=== PATIENT | female | born 1990 | race Caucasian/White ===

== ENCOUNTER → 2019-08-04 | Outpatient (CLI) | payer OTHER ==
--- NOTE | 2019-08-04 13:14 | REPVR ---
PROCEDURE INFORMATION: Exam: MR Head Without Contrast Exam date and time: 08/04/2019 7:32 AM Age: 29 years old Clinical indication: Pain; Headache; Migraine; Aura effect not specified; TECHNIQUE: Imaging protocol: MR of the head without contrast. COMPARISON: No relevant prior studies available. FINDINGS: Brain: There is no acute intracranial hemorrhage, cerebral edema, or midline shift. No restricted diffusion is present to suggest acute infarction. Ventricles: No hydrocephalus. Bones/joints: Unremarkable. Sinuses: Normal as visualized. No acute sinusitis. Mastoid air cells: Normal as visualized. No mastoid effusion. Orbits: Unremarkable. Soft tissues: Unremarkable. IMPRESSION: No acute findings. Electronically signed by: Kike Hoffman On 08/04/2019 13:14:14 PM
== END ==
LOC: M RAD 06:40
PROVIDERS: ATTEND Physician Assistant Medical
DX: G43.909 Migraine, unspecified, not intractable, without status migrainosus (principal)

== ENCOUNTER → 2020-04-23 | Outpatient (REF) | payer OTHER ==
[2020-04-23 16:59] LABS: FREE T4 1.02 NG/DL (0.76-1.46); THYROID STIMULATING HORMONE 2.35 uIU/ML (0.358-3.740)
== END ==
LOC: M SFHCADAM 13:30
PROVIDERS: ATTEND Physician Assistant Medical
DX: N91.2 Amenorrhea, unspecified (principal); E66.01 Morbid (severe) obesity due to excess calories

== ENCOUNTER → 2020-12-16 | Outpatient (REF) | payer OTHER ==
[2020-12-16 12:54] LABS: HEMATOCRIT 37.2 % (36.0-47.0); HEMOGLOBIN 12.2 g/dl (12.0-15.5); MEAN CORPUSCULAR HEMOGLOBIN 28.4 pg (27.0-33.0); MEAN CORPUSCULAR HGB CONC 32.8 g/dl (32.0-36.5); MEAN CORPUSCULAR VOLUME 86.7 fl (80.0-96.0); PLATELET COUNT, AUTOMATED 272 10^3/uL (150-450); RED BLOOD COUNT 4.29 10^6/uL (4.00-5.40)
[2020-12-16 13:24] LABS: ALT/SGPT 10 U/L (12-78); BILIRUBIN,TOTAL 0.2 MG/DL (0.2-1.0); GLOMERULAR FILTRATION RATE > 60.0 (>60); GLUCOSE CHALLENGE TEST 1 HOUR 133 MG/DL (LESS THAN 140); LDH LACTATE DEHYDROGENASE 179 U/L (84-246); URIC ACID 4.1 MG/DL (2.6-6.0)
[2020-12-16 13:27] LABS: CREATININE,RANDOM URINE 91.5 MG/DL; TOTAL PROTEIN,RANDOM URINE 10.5 MG/DL (0.0-12.0)
== END ==
LOC: M PLALAB 10:11 → M SFHCADAM 10:37
PROVIDERS: ATTEND Advanced Practice Midwife
DX: Z34.92 Encounter for supervision of normal pregnancy, unspecified, second trimester (principal); Z3A.00 Weeks of gestation of pregnancy not specified

== ENCOUNTER → 2020-12-24 | Outpatient (CLI) | payer OTHER ==
--- NOTE | 2020-12-24 16:35 | REP ---
INDICATION: ANATOMY. COMPARISON: None. TECHNIQUE: Real-time sonographic evaluation of the gravid uterus performed. FINDINGS: Estimated gestational age is28 weeks 2 days, EDC 03/16/2021. Today's measurements indicate appropriate growth. Presentation: Transverse Placenta anterior, grade 2, without evidence of placenta previa. heart rate is recorded at 153 beats per minute. Amniotic fluid is subjectively normal. Closed cervical length is measured at 3.5 cm. Biometry chart: BPD: 72 mm, 28 weeks 6 days, 61st percentile. HC: 263 mm, 28 weeks 5 days, 58th percentile AC: 237 mm, 28 weeks 0 days, 45th percentile Femur length: 50 mm, 26 weeks 6 days, 19th percentile HC to AC ratio: 1.11, normal range 0.99-1.18. Estimated weight: 1119g, 20th percentile. anatomy: Cranium: Grossly normal Lateral Ventricles/Choroid Plexus: Grossly normal Posterior Fossa/Cerebellum: Grossly normal Nose/lips/profile: Nose and lips not well visualized. Four chamber heart: Not well visualized. Right ventricular outflow tract: Not well visualized. Left ventricular outflow tract: Not well visualized. Left-sided stomach: Grossly normal Kidneys: Not well visualized. Bladder: Grossly normal Cord Insertion: Grossly normal 3 vessel cord: Grossly normal Spine: Not well visualized. IMPRESSION: Viable single intrauterine gestation as above. <Electronically signed by Toro Aj > 12/24/20 [id number]
== END ==
LOC: M WHC 09:54
PROVIDERS: ATTEND Advanced Practice Midwife
DX: Z34.92 Encounter for supervision of normal pregnancy, unspecified, second trimester (principal)

== ENCOUNTER → 2020-12-31 | Outpatient (REF) | payer OTHER ==
[~2020-12-31] MED LIST: ACET500P3 PO; GUAI100L6 PO; PRENTAB9 PO
== END ==
LOC: M SFHCPLAZ 16:47
PROVIDERS: ATTEND Physician Assistant
DX: J02.9 Acute pharyngitis, unspecified (principal)

== ENCOUNTER 2021-01-04 13:12 | Emergency (ER) | payer OTHER ==
[~2021-01-04] VITALS: Ht 154.9 cm; Wt 131.8 kg
--- OUTSIDE RECORDS SUMMARY | 2021-01-04 13:19 | CCD ---
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
--- OUTSIDE RECORDS SUMMARY | 2021-01-04 13:19 | CCD ---
Author Author [facility] Organization [facility] Address Unknown Phone Unavailable Care Team Providers Care Line Person Name Role Phone Abeba Carrizales PROBLEMS Type Condition ICD9-CM Code [id number] Code Onset Dates Condition S tatus W/U Status Risk SNOMED Code Notes Problem Amenorrhea N91.2 Active confirmed 87360550 Problem Supervision of other normal Z34.80 Ac tive confirm 879607656 Problem Morbid obesity E66.01 Active confirmed 32496 6002 Problem GERD without esophagitis K21.9 Active confirmed 711343028 Problem Migraine without aura and without status migrain osus, not intractable G43.009 Active confirmed [id number] ALLERGIES Allergen (clinical drug ingredient) Drug/Non Drug Allergy do cumented on EMR Reaction Allergy Type Onset Date Status Sulfasalazine Sulfa Antibiotics Rash Drug Allergy 07/18/2019 Ac tive ENCOUNTERS from 1992 to 2020-12-07 Encounter Location Date Provider Diagnosis [facility] [facility] [phone] [place] [address] Nov, Abeba Carrizales Encounter for superv ision of normal in second trimester Z34.92 IMMUNIZATIONS No Information SOCIAL HISTORY Tobacco Use: Social History Observation Description Date Details (start date - stop date) Former Smoker Sex Assigned At : Social History Observation Description Sex Assigned At Unknown Education: Question Answer Notes Level of Education: Not finished High School Completed 11th grade, with her oldest dgt who was born with CA. Audit Question Answer Notes Total Score: 0 Interpretation: Alcohol Education Language: Question Answer Notes Languages spoken: [place] Confucianism: Question Answer Notes Confucianism No latter day beliefs that would impact health care. Drug and Alcohol Question Answer Notes Total Score: 0 Interpretation: No problems reported Tobacco Use: Question Answer Notes Are you a: former smoker REASON FOR REFERRAL No Information VITAL SIGNS Weight 286.2 lbs Nov, Weight-kg 129.82 kg Nov, Height 61 in Nov, BMI 54.077 kg/m2 Nov, Blood pressure systolic 128 mm Hg Nov, Blood pressure diastolic 90 mm Hg Nov, MEDICATIONS Medication SIG (Take, Route, Frequency, Duration) Notes Start Da te End Date Status Sucralfate 1 GM 1 tablet on an empty stomach Orally three times daily Not-Taking Zofran ODT Active 27-1 MG 1 tablet Orally Once a day Active Omeprazole 40 MG 1 capsule 30 minutes before morning meal Orally twice daily for 30 day(s) June, Not-Taking Tylenol 325 MG 1 tablet as needed Orally every 4 hrs Active Mupirocin 2 % 1 application Externally thr ee times daily to left upper arm for 7 day(s) Jul, Not-Taking PROCEDURES No Information RESULTS No Results REASON FOR VISIT 1st pn transfer from [facility] MEDICAL (GENERAL) HISTORY Type Description Date Medical History Gastritis/GERD Medical History morbid obesity Surgical History laparoscopic repair of umbilical hernia 06/07 Surgical History tubes in ears, tonsils as a child Hospitalization History child - vaginal deliveries Hospitalization History hernia repair 06/07 Goals Section No Information Health Concerns No Information MEDICAL EQUIPMENT No Information MENTAL STATUS No Information FUNCTIONAL STATUS No Information ASSESSMENTS Encounter Date Diagnosis Assessment Notes Treatment Notes Treatm ent Clinical Notes Nov, Encounter for supervision of normal in second trimester (ICD-10 - Z34.92) PLAN OF TREATMENT Treatment Notes Test Name Order Date Pre Eclampsia Profile 2020-12-07 CREATININE,RANDOM URINE 2020-12-07 CBC - Complete Blood Count 2020-12-07 TOTAL PROTEIN,RANDOM URINE 2020-12-07 Type and Screen (D Rh Antibody Screen) 2020-12-07 Glucose Challenge Test 1 Hour 2020-12-07 [facility] OBS COMPLETE US 2020-12-07 Next Appt Details 2-3 weeks Reason: Provider Name:Antonella Anderson, 2020-12-0 5 08:00:00 AM, [address] [facility], , [place], [address], Insurance Providers Payer Name Payer Address Payer Phone Insured Name Patient Relati onship to Insured Coverage Start Date Coverage End Date [facility] [employer] [address] [facility] [id number] [phone] EBONY CHANG self
--- OUTSIDE RECORDS SUMMARY | 2021-01-04 13:19 | CCD ---
Author Author [facility] Organization [facility] Address Unknown Phone Unavailable Care Team Providers Care Tipple Supervisor Name Role Phone EDWARD FINE Unavailable Unavailable Doctor Provided, Family PHYS No Family Unavailable U navailable SELENEHEMAIRINA MS Unavailable Unavailable MAESTRI, IRINA YOUNG MS Unavailable Unavailable Irina Burgess Unavailable Irina Burgess Unavailable Janis Norton MD Unavailable Unavailable Royal NORTON Unavailable Unavailable Oleg Pavon MD Unavailable Unavailable Re-disclosure Warning The records that you are about to access may contain information from federally-assisted alcohol or drug abuse programs. If such information is present, then the following federally mandated warning applies: This information has been disclosed to you from records protected by federal confidentiality rules (42 CFR part 2). The federal rules prohibit you from making any further disclosure of this information unless further disclosure is expressly permitted by the written consent of the person to whom it pertains or as otherwise permitted by 42 CFR part 2. A general authorization for the release of medical or other information is NOT sufficient for this purpose. The Federal rules restrict any use of the information to criminally investigate or prosecute any alcohol or drug abuse patient.The records that you are about to access may contain highly sensitive health information, the redisclosure of which is protected by Article 27-F of the [facility] Public Health law. If you continue you may have access to information: Regarding HIV / AIDS; Provided by facilities licensed or operated by the [facility] Office of Mental Health; or Provided by the [facility] Office for People With Developmental Disabilities. If such information is present, then the following [facility] mandated warning applies: This information has been disclosed to you from confidential records which are protected by state law. State law prohibits you from making any further disclosure of this information without the specific written consent of the person to whom it pertains, or as otherwise permitted by law. Any unauthorized further disclosure in violation of state law may result in a fine or senior care sentence or both. A general authorization for the release of medical or other information is NOT sufficient authorization for further disc losure. Allergies and Adverse Reactions Type Description Substance Reaction Status Data Source(s ) Drug allergy Sulfa (Sulfonamide Antibiotics) Sulfa (Sulfonami de Antibiotics) Rash [facility] Family History Family Member Name Family Member Gender Family Member Status Date o f Status Description Data Source(s) Unknown Condition [facility] Unknown Condition [facility] Unknown Condition [facility] Unknown Condition [facility] Unknown Condition [facility] Unknown Condition [facility] Unknown Condition [facility] Unknown Condition [facility] Unknown Male Problem MEDENT ([facility]) Unknown Unknown Problem MEDENT ([facility]) Encounters Encounter Providers Location Date Indications Data Source(s ) Unknown [address] [address] 12/31/2020 12:00:00 AM EST eCW1 ([facility]) Unknown [address] [address] 12/29/2020 12:00:00 AM EST eCW1 ([facility]) ( MARIAM) [facility] OB Visit [address] [place] [address] 12/07/2020 12:00:00 AM EDT eCW1 ([facility]) Outpatient 10/27/2020 01:00:00 PM EDT anatomy [facility] anatomy Outpatient Attender: ERNA MALASeven Bria jose: Erna Reginarer: JANIS NORTON [id number] 10/21/2020 12:00:00 AM EDT - 10/21/2020 02:53:55 PM EDT [facility] Outpatient Attender: EDWARD FINEReferrer: JANIS NORTON 10/21/2020 12:00:00 AM T [facility] Outpatient Attender: Janis Norton MD 09/29/2020 0 3:07:00 PM EDT Z82.79,O09.293,Z80.8 [facility] Z82.79,O09.293,Z80.8 Outpatient Attender: Janis Norton MDReferrer: No Family Doctor Provided 09/29/2020 02:25:00 PM EDT - 09/29/2020 02:55:00 PM EDT [facility] Outpatient Attender: Roberth Pavon MD 09/14/2020 02:20:00 PM EDT F/U SUBCORE [facility] F/U SUBCORE Outpatient Attender: Janis Norton MD 09/01/2020 05:47:0 0 PM EDT [facility] Outpatient Attender: Janis Norton MDReferrer: No Family Doctor Provided 09/01/2020 02:47:00 PM EDT - 09/01/2020 04:09:00 PM EDT [facility] Outpatient Attender: Janis Norton MD 08/04/2020 0 2:06:00 PM EDT DATING, ANATOMY? [facility] DATING, ANATOMY? Outpatient Attender: Janis Norton MD 08/03/2020 01:57:0 0 PM EDT [facility] Outpatient Attender: Janis Norton MDReferrer: No Family Doctor Provided 08/03/2020 01:51:00 PM EDT - 08/03/2020 01:58:00 PM EDT [facility] Outpatient [address] [facility] [address] 04/23/2020 12:00:00 AM EST eCW1 ([facility]) [place] [address] [facility] [address] 04/23/2020 12:00:00 AM EST eCW1 ([facility]) [place] [address] [facility] [address] 01/26/2020 12:00:00 AM EST eCW1 ([facility]) Immunizations Vaccine Date Status Description Data Source(s) Tdap 12/24/2020 08:52:00 AM EDT completed e CW1 ([facility]) Tdap 12/24/2020 08:52:00 AM EDT completed e CW1 ([facility]) New in 2011. IIV4 12/24/2020 08:51:00 AM EDT completed eCW1 ([facility]) New in 2011. IIV4 12/24/2020 08:51:00 AM EDT completed eCW1 ([facility]) Medications Medication Brand Name Start Date Product Form Dose Route Admi nistrative Instructions Pharmacy Instructions Status Indications Reaction Description Data Source(s) Ondansetron 4 MG Disintegrating Oral Tablet ONDANSETRON 09/29/2020 12:00:00 AM EDT tablet,disintegrating 30 DISSOLVE O NE TABLET UNDER THE TONGUE EVERY 4 HOURS NEEDED FOR NAUSEA/VOMITING FOR 1 WEEK, THEN NEEDED DISSOLVE ONE TABLET UNDER THE TONGUE EVERY 4 HOURS NEEDED FOR NAUSEA/VOMITING FOR 1 WEEK, THEN NEEDED SOLD: 09/30/2020 Lissa segura Ondansetron 4 MG Disintegrating Oral Tablet ONDANSETRON 09/29/2020 12:00:00 AM EDT tablet,disintegrating 30 DISSOLVE O NE TABLET UNDER THE TONGUE EVERY 4 HOURS NEEDED FOR NAUSEA/VOMITING FOR 1 WEEK, THEN NEEDED DISSOLVE ONE TABLET UNDER THE TONGUE EVERY 4 HOURS NEEDED FOR NAUSEA/VOMITING FOR 1 WEEK, THEN NEEDED SOLD: 10/17/2020 Lissa segura Metronidazole 0.0075 MG/MG Vaginal Gel M etronidazole (Metrogel Vaginal) 0.75 % gel Metronidazole (Metrogel Vaginal) 0.75 % gel 09/08/2020 05:10:51 PM EDT 1 APPFUL completed [facility] Promethazine Hydrochloride 12.5 MG Oral Tablet Promethazine 08/11/2020 01:07:38 PM EDT 12.5 MG active [facility] 12.5 mg 08/11/2020 12:00:00 AM EDT tablet 90 TAKE ONE TABLET BY MOUTH THREE TIMES A DAY TAKE ONE TABLET BY MOUTH THREE TIMES A DAY SOLD: 08/11/2020 [facility] Lkz42-Az-Iq8-Edu-Kyr-Sger Oil 08/03/2020 01:17:07 PM EDT active [facility] Alprazolam 0.25 MG Oral Tablet Alprazolam (Xanax) 0.25 MG tablet Alprazolam (Xanax) 0.25 MG tablet 09/28/2016 12:25:00 PM EDT 0.25 MG [facility] 24 HR Bupropion Hydrochloride 300 MG Ext ended Release Oral Tablet Bupropion Hcl (Wellbutrin Xl) 300 MG tablet extended release 24 hr Bupropion Hcl (Wellbutrin Xl) 300 MG tablet extended release 24 hr 09/28/2016 10:32:00 AM EDT 300 MG completed [facility] Ibuprofen 800 MG Oral Tablet Ibuprofen 09/24/2016 09:24:14 AM EDT 800 MG completed [facility] Ranitidine 150 MG Oral Tablet Ranitidine Hcl (Zantac) 150 MG tablet Ranitidine Hcl (Zantac) 150 MG tablet 09/07/2016 02:44:00 PM EDT 150 MG [facility] Pnv 9-Hbqd-Mx-Y61-Pfmerwv-H2 (Mteryti Fo lic 5 Combo Pack) 1 EACH tablets, sequential 03/10/2016 03:39:00 PM EST 1 EACH compl eted [facility] Insurance Providers Payer name Policy type / Coverage type Policy ID Covered alliance party ID Covered alliance party's relationship to burk Policy Burk Plan Information [facility] I [id number] Self [id number] [facility] I [id number] Self [id number] MEDICAID M [id number] Self [id number] [facility] P [id number] S [id number] [facility] Health Maintenance Organization (HMO) [id number] Self [id number] [facility] Health Maintenance Organization (O) [id number] Self [id number] [facility] Health Maintenance Organization (O) [id number] Self [id number] [facility] Health Maintenance Organization (O) [id number] Self [id number] [facility] Health Maintenance Organization (O) [id number] Self [id number] [facility] Health Maintenance Organization (O) [id number] Self [id number] [facility] I [id number] Self [id number] [facility] Health Maintenance Organization (O) [id number] Self [employer] COMM[employer] [place] [id number] SP [id number] [facility]CA[facility] P [id number] S [id number] [facility](MCAID) P UNAVAILABLE S UNAVAILABLE [facility](MCAID) P [id number] S [id number] SELF PAY UNAVAILABLE UNAVAILA BLE BLUE CROSS GARZA PLAN [id number] SP [id number] HMO BLUE [id number] SP [id number] MEDICAID [id number] SP [id number] [facility] [id number] SP [id number] [employer] COMMUNITY [employer]AN [facility] [place] [id number] SP [id number] Problems, Conditions, and Diagnoses Code Display Name Description Problem Type Effective Dates Data Source(s) Z34.80 care Supervision of other normal P lidia 12/07/2020 12:00:00 AM EDT eCW1 ([facility]) N91.2 [id number] Amenorrhea Problem 04/23/2020 12:00:00 AM ES T eCW1 ([facility]) Surgeries/Procedures Procedure Description Date Indications Data Source(s) Ultrasound scan - obstetric (procedure) 09/14/2020 02: 50:00 PM EDT [facility] Chlamydia/Neisseria (PCR) 09/01/2020 12:00:00 AM EDT [facility] Ultrasonography in first trimester (procedure) 021 03:12:00 PM EDT [facility] Urine culture (procedure) 08/03/2020 12:00:00 AM EDT [facility] Results ID Date Data Source [id number] 10/26/2020 09:05:31 AM EDT [facility] Name Value Range Interpretation Code Description Data Dolores rce(s) Supporting Document(s) Progress Note [facility] RBPMAm5xFiZPDhFn62/UGUacLZWpy1FzPKbpNUj7HCcuPIGnZ4LvZDS9cN9lIKO7OVcGRqOvInCmITH9 [facility] UeOypODkJqJKVhAvfHSvRpZYdkPiqqvWReSC5MpIV6PTFrY55mTDWpDIUwU0XmDHS0NAp+Ik3GFLTzyE LwDS8RPbcA2L1kn4xIQe3quP/QCbQuH0VzofeOlzKSO7lva4IzmGTY42RCLnqTDKbyfWMynhyo4sp+dD dj+xyRwjtnQhynwJX3r7nh934LzORQvc+uwHVzLF9x /7/4U8frWt8zk/yQAm7K4ZpIDq+wp6fOvTl9KxWVkT+B//xHdm910v96n8OoQy5zKx8eUE6X84yWihGE o/1T9knhieW9pJojPo0sy2oxonpydC//wdISAFy56HZam+bwP+sKnKnghuSyj7O/ywf8r4NePIGj+3Fw V4vTKLcQSzSR2GKhihKcsrfRHjJLIoD7Ox/MqpPOvA Zz82CdPyuXVfxzm1xyQ7JnEKDMOspYxwN8BAu6Zf8MLqdV7KgADLb0pX/Mz7NevWwmXG8Bmm6iu1k7W5 XoXRgOjCKcB3tXKzwy8PZQ5aCxpQrgcg41AF2LTEokm3SIE+O6bpmDjIbY8R3vvas6nO1fEdfIoe6pxU /Ov0CRHmxi1O/ZI0HsqTJ02tyTYO7I2Mb+10a5fdsT o0yQog1o9Rfj5NtiBj7htjydofuK89Kao3BA+RaXXfCzP2k1TKUc3sw85lp+Hu8Q2I0XB+iKeWvsoo99 d2De/sKszh6qIswuZ2J6Vc0AozqDRpcGQgYt8ABdCOY59QKa1cHg85rG25YYRcRpToGWT56/93wuPwhM PpzkwyguRgXdLOyKuofzfBQnxciQZz+L2JIPtzkn+J [file] ID Date Data Source [id number] 10/01/2020 05:53:00 PM EDT [facility] MATERNAL WEIGHT?: 287MOTHER'S ETHNIC GUERRERO GIN: CAUCASIANINSULIN DEPEND DIABETES: NOHX OF NEURAL TUBE DEFECTS: YESEDD DETERMINED BY: ULTRASOUNDPREV PREG. DOWN SYNDROME: YESNUMBER OF FETUSES: 1EST'D DATE OF DELIVERY: [id number] Name Value Range Interpretation Code Description Data Dolores rce(s) Supporting Document(s) Gestational age method [facility] Mother's race [facility] Gestational age Estimated 16.0 weeks [facility] Body weight 287 lbs [facility] Insulin dependent diabetes mellitus [Presence] [facility] History of Neural tube defect Narrative YES [facility] History of Trisomy 21 Narrative YES [facility] Donated egg [Presence] [facility] Age NOT GIVEN [facility] Clinical information NO [facility] Delivery date Estimated 03/16/2021 [facility] Number of fetuses by US 1 [facility] Neural tube defect risk [Likelihood] in Fetus NOT CALCULATED [facility] Second trimester quad maternal screen [I nterpretation] in Serum or Plasma Narrative SEE NOTE [facility] ital Screen positive for open NTD.SEE NOTEA f amily history of neural tube defects (NTD) mayincrease the risk of having a child with anencephalyor spina bifida. Genetic counseling is appropriate inthis situation.A previous child with down syndrome may increasethe risk of having another child with down syndrome.Genetic counseling is appropriate in this situation.This patient's SHYANN (estimated date of delivery)was used to calculate the gestational age.The AFP value obtained for this patient is high. Thepatient has an increased risk for having a child withopen neural tube defect or other congenital anomalies.Underestimation of gestational age is one of the mostfrequent causes of an elevated AFP. Geneticcounseling, ultrasound examination and possibleamniocentesis are recommended as soon as possible. Thesingle AFP marker is not recommended for Down syndromeand other chromosomal abnormalities screening. Muchgreater sensitivity is achieved with multiple markers,such as AFP, hCG, unconjugated estriol, and/or dimericinhibin A, as recommended by the [employer]. Service comment [facility] This is a screening test, not a diagnost ic test. Thisrisk assessment report is based in part on demographicdata provided by the ordering physician. Please notifythe laboratory promptly if any data are incorrect. Forassistance with recalculations, please call your local[facility] laboratory. For assistance withinterpretation of these results, please contact yourcal [employer] genetic counselor or [phone]).Interpretive CutoffsScreen Positive for Open NTD: > or = 2.50 adjusted MOM > or = 1.90 adjusted MOM for Insulin- dependent diabetics > or = 4.00 adjusted MOM for twins > or = 3.50 adjusted MOM for Twins insulin-dependent diabetics > or = 4.50 adjusted MOM for tripletsSEE NOTEReviewed by: Milo Roque MDTHIS TEST WAS PERFORMED AT:[facility] [address]XRAWCN MERATI,MD Lgwts-8-Fujmjzkybis [Multiple of the median] in Serum or Plasma Above high normal [facility] 3.56 - SCREEN POSITIVE (SEE BELOW) Abno rmal Flag: A Gcmrd-5-Hdtmkpvqavv [Mass/volume] in Serum or Plasma 82.2 ng/mL [facility] ID Date Data Source [id number] 09/29/2020 02:32:00 PM EDT [facility] Patient Name: EBONY MINER : 1990 Sex: F Pt Unit #: [id number] Location:[facility] Provider: Visit Date/Time: 09/29/20 Primary Insurance: [facility] Secondary Insurance: Self Pay Intake Vital Signs 09/29/20 14:40 Current Height 5 ft Current Weight 287 lb 4 oz Weight Measurement Method Standing Scale BMI 56.0 BP 122/80 Blood Pressure Location Lt brachial Position Sitting Respiration 18 Pulse 92 Pulse Strength Normal Pulse Source Pulse Oximeter Temp 97.4 F L Temp Source Tympanic Pulse Oximetry (%) 98 Oxygen Delivery Method room air 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 Qnatal was denied by insurance, CF done in first , is going to do AFP today, does not require auth. Denies any cramping, contractions, leaking of fluids, bleeding or discharge. Is not feeling movement yet. States that she is still really nauseousand has no appetite, but no vomiting. Has lost 6lbs in the last month. Otherwise no concerns today. Spike Machine Heater Required: No Accompanied by: Is patient in pain?: No Allergies Sulfa (Sulfonamide Antibiotics) Allergy (Mild, Verified 09/29/20 15:03) Rash Medications - Last Reconciled 09/29/20 by Janis Norton MD ondansetron 4 mg PO Q4H PRN OWW17-YK-jw8-sqq-ihw-oplk oil 400 mcg-35 mg -25 mg-5 mg tabs PO promethazine 12.5 mg PO TID Patient : Yes Fall Risk History of falls: No Ambulatory Aid:: None Gait/Transferring:: Normal Medications:: No High Risk Medications HIV Testing Offer - ages 13-64 HIV testing Offer: No SBIRT Annual Questionnaire Are you currently in recovery for alcohol or substance use?: No Coronavirus Screening Screening Are you currently positive or on isolation for COVID ?: No Do you have any NEW signs of one or more of the following?: no symptoms Do you have NEW signs of at least two of the following?: no symptoms PFSH Medical History Allergy to Sulfa daughter born with CA 1 still born at 37 wks down syndrome/1blighted ovum menarche 11 No Hx abn paps Surgical History H/O umbilical hernia repair History of - surgery (08/31/15) History of - surgery History of - surgery Status post tonsillectomy Family History Mother Diabetes Hypertension Daughter Cancer Social History Does the Patient have a Healthcare Proxy: No Does Patient have a DNR?: No Does Patient have a Living Will?: No Advance Directives on File or in chart?: No household members: spouse and children housing: house marital status: lives independently: Yes number of children: 3 highest education level completed: 11th grade service: No current occupational status: unemployed current occupation: [employer] pets and animals: Yes pets and animals: dog(s) Hx Recent Travel (where): No sexually active: Yes how many partners: 1 do you think of yourself as: straight/heterosexual current gender identity: female Smoking Status: Never smoker alcohol intake: current alcohol intake frequency: holidays/special occasions only substance use type: does not use seatbelt use: always helmet use: Yes helmet use: always drive intox or ride w/ intox frontload driver: No working smoke detector in home: Yes fire extinguisher in home: Yes carbon monox detector in home: Yes do you feel safe at home: Yes victim of physical abuse: No victim of emotional abuse: No victim of sexual abuse: No Female Reproductive History Menstrual Age of Menarche: 13 Duration of menses: 3-5 days control method: none Total pregnancies: 6 Full term: 4 Premature: 0 Ab induced: 0 Ab spontaneous: 1 Ectopics: 0 Multiple births: 0 HPI HPI (1) : History History 6 Number of Living Children 3 Hx # Term Pregnancies 4 Hx # Pregnancies 0 Hx Total # of Abortions (Spontaneous Elective) 1 Ectopic pregnancies 0 Past Pregnancies Del. Date EGA/weeks Route # Outcome Route Wgt Sex Labor lgth Anesthesia Del Loc 04/24/11 40 Spontaneous Vaginal 1 live - full term vaginal 8 lb 4 oz FEMALE 12 Epidural No [facility] 07/02/13 6 Spontaneous spontaneous 12/11/13 37 Spontaneous Vaginal 1 still vaginal 7 lb 14 oz MALE 12 None No [facility] 01/20/15 40 Spontaneous Vaginal 1 live - full term vaginal 8 lb 10 oz FEMALE 1 2 Spinal No [facility] 09/22/16 40 Spontaneous Vaginal 1 live - full term vaginal 8 lb 11 oz F EMALE 12 Epidural None No [facility] Delivery Date: 04/24/11 No notes to display Delivery Date: 07/02/13 No notes to display Delivery Date: 12/11/13 had Down Syndrome Tracee Dominguez Delivery Date: 01/20/15 No notes to display Delivery Date: 09/22/16 No notes to display Visit Personal Information Marital Status: Maternal 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 Father's age: 30 Father involved?: Yes ([place]) Paternal 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 No vomiting. Has lost 6 pounds since last visit. Has not been taking the Phenergan, because it makes her sleepy, only takesit when she is really nauseous, and then only when her is at home because of the children. Will like to try something else for the nausea. 1. Nausea: To stop Phenergan. To try Zofran 4 mg every 4 hours x1 week continuously, then q.4 hours as needed nausea after that week. 2. Quad screen today. Jains Norton Visit Date: 09/01/20 Patient is here for her NOB appt. She is unsure of LMP so will go by dating US. She is 12 weeks today with SHYANN of 03/16/21. She would like all genetic testing done besides CF, she states withher first she was tested and she was a CF carrier (her brother has CF), but her was negative. She also has had a stillborn with Down Syndrome and a daughter born with Cancer- [place], which is why she wants genetic testing to be done. Her last pap was 11/22/16 and negative with negative HPV. She has some nausea, but states the medication is working well. Has some cramping, but states it is very mild. Denies any bleeding or spotting. Was given NOB handouts and signed HIV consent form. Denies any concerns today. OB sonogram: 08/04/2020: S IUP, CRL 15.9 mm =8 weeks 0 days gestation. FH174 bpm. Sono SHYANN: 03/16/2021. Small subchorionic fluid collection, hemorrhage,1.4 x 1.1 x 0.9 cm. Labs: 08/03/2020: UA/C Snormal. Lead <1; syphilisNR; HBsAgNR; HIVNR; rubellaimmune; varicellaimmune; group and RhO+, antibody screennegative. H/H13.3/39.2, THA657s; TSH2.10 IU/ml. UDAnegative. 1. at 12 weeks gestation. Past history of demise at term. 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 2. Repeat OB sonogram to assess subchorionic bleed. 3. Labs: Pap, GC/chlamydia, PCR swab vagina. 4. Desires genetic screening, because of previous history of demise and Down's, and also patient's history of CF carrier. Janis Norton Assessment Plan Assessment Plan (1) : Code(s): Z34.90 - Encounter for supervision of normal , unspecified, unspecified trimester Qualifiers: Weeks of gestation: 16 weeks Qualified Code(s): Z3A.16 - 16 weeks gestation of Plan: 1. Quad screen today. 2. Persistent nausea with : To DC Phenergan. To try Zofran 4 mg every 4 hours x1 week, then every 4 hours as needed nausea after that. 3. For anatomy sonogram at 20 weeks. Orders: Orders US OB Ultrasound >14 wks 4 Weeks Z36.89 - Encounter for other specified screening Medications: New ondansetron 1 tab every 4 hours x 1 week, then PRN 4 mg PO Q4H PRN 42 tabs 4RF nausea and vomiting Orders Follow Up: 4 Weeks <Electronically signed by Janis Norton MD> 09/29/20 1515 Name Value Range Interpretation Code Description Data Dolores rce(s) Supporting Document(s) ID Date Data Source [id number] 09/14/2020 04:31:00 PM EDT [facility] [address] [place] [address] [phone] NAME SEX PT STATUS ACCOUNT NUMBER EBONY MINER REG REF [id number] ORDERING PHYSICIAN LOCATION MEDICAL RECORD NO. Roberth Pavon MD [id number] ATTENDING PHYSICIAN DATE OF DATE OF EXAM/TIME Doctor Provided,No Family 1990 09/14/20 / 1450 TYPE / EXAM US OB Limited (heartbeat, etc) REASON FOR EXAM follow up subchorionic bleed CLINICAL HISTORY: follow up subchorionic bleed COMPARISON: 08/04/2020 TECHNIQUE: Multiple transabdominal and transvaginal escalona-scale, color Doppler, and M-Mode Doppler images were obtained of the pelvis. FINDINGS: Gestation: Single live intrauterine gestation. is demonstrated in transverse presentation. No subchorionic hemorrhage visualized in today's study. Anterior placenta. heart rate: 163bpm Cervical Length: 4.67cm Amniotic Fluid Volume: Subjectively within normal limits. IMPRESSION: 1. Single live intrauterine with heart rate of 163 bpm. 2. I nterval resolution of the previously visualized subchorionic hemorrhage. Reported By Jonathan Toledo DO on 09/14/201630 Signed By Jonathan Toledo DO on 09/14/201632 Date Time CC: Jonathan Toledo DO; No Family PHYS Provided Techn: TABSA Trans Dt/Tm: Trans by: DT Prt Dt/Tm: : Total DLP = 0.00 mGy-cm : Total Radiation Dose = 0.0000 mSv Lifetime Dose: 0 mSv Name Value Range Interpretation Code Description Data Dolores rce(s) Supporting Document(s) ID Date Data Source [id number] 09/09/2020 07:58:00 AM T [facility] LAST MENSTRUAL PERIOD unsureCollection T echnique: BRUSH-SPATULAPATIENT INFORMATION: PREVIOUS CYTOLOGY: NEGATIVEDATES AND RESULTS: 2017 negativePREVIOUS TREATMENT: NONEBody Site: CERVIX Name Value Range Interpretation Code Description Data Dolores rce(s) Supporting Document(s) Microscopic observation [Identifier] in Vaginal fluid by Cyt o stain.thin prep [facility] ID Date Data Source [id number] 09/02/2020 05:22:00 AM EDT [facility] CT/NG IS A QUALITATIVE IN VITRO REAL-JANAY E PCR TEST FORDETECTION OF CHLAMYDIA TRACHOMATIS (CT) AND NEISSERIAGONORRHOEAE (NG)NORMAL VALUE FOR CT/NG IS " NO ORGANISMS DETECTED "0x95 False negative results may occur if the organism(s) ispresent at levels below the analytical limit of detection.0x95 Because the detection of CT and NG is dependent on the DNApresent in the sample, reliable results are dependent onproper sample collection, handling and storage.0x95 With endocervical specimens, assay interference may beobserved in the presence of: blood (>1% v/v) or mucin (>0.8%w/v).0x95 With urine specimens, assay interference may be observedin the presence of: blood (>0.3% v/v), mucin (>0.2% w/v),bilirubin (>0.2 mg/mL), or Vagisil feminine powder (>0.2%w/v).0x95 Collection and testing of urine specimens with the XpertCT/NG test is not intended to replace cervical exams andendocervical sampling for diagnosis of urogenital infection.Other genitourinary tract infections can be caused by otherinfectious agents.0x95 The effects of other potential variables such as vaginaldischarge, use of tampons, douching, and specimen collectionvariables have not been determined.0x95 A negative test result does not exclude the possibility ofinfection because test results may be affected by improperspecimen collection, technical error, specimen mix-up,concurrent antibiotic therapy, or the number of organisms inthe specimen which may be below the sensitivity of the test.0x[address]/NG test should not be used for the evaluationof suspected sexual abuse or for other medico-legalindications. Additional testing is recommended in anycircumstance when false positive or false negative resultscould lead to adverse medical, social, or psychologicalconsequences.0x[address]/NG test provides qualitative results. Nocorrelation can be drawn between the magnitude of the Ctvalue and the number of cells in an infected sample.0x95 Positive results may be observed after successfulantibiotic treatment due to target nucleic acids fromresidual non-viable chlamydia.0x[address]/NG performance has not been evaluated inpatients less than 14 years of age.0x[address]/NG performance has not been evaluated inpatients with a history of hysterectomy.0x[address]/NG test has not been evaluated with patientswho are currently being treated with antimicrobial agentsactive against CT or NG.0x95 As with many diagnostic tests, results from the XpertCT/NG test should be interpreted in conjunction with otherlaboratory and clinical data available to the clinician.0x95 Mutations or other changes within the regions of thebacterial genomes covered by the primers and/or probes inthe Xpert assay may result in failure to detect the targetorganisms.C trach DNA Vag Ql SIXTO+probeN gonorrhoea rRNA Vag Ql SIXTO+probe Name Value Range Interpretation Code Description Data Dolores rce(s) Supporting Document(s) ID Date Data Source [id number] 09/03/2020 01:33:00 PM EDT [facility] CT/NG IS A QUALITATIVE IN VITRO REAL-JANAY E PCR TEST FORDETECTION OF CHLAMYDIA TRACHOMATIS (CT) AND NEISSERIAGONORRHOEAE (NG)NORMAL VALUE FOR CT/NG IS " NO ORGANISMS DETECTED "0x95 False negative results may occur if the organism(s) ispresent at levels below the analytical limit of detection.0x95 Because the detection of CT and NG is dependent on the DNApresent in the sample, reliable results are dependent onproper sample collection, handling and storage.0x95 With endocervical specimens, assay interference may beobserved in the presence of: blood (>1% v/v) or mucin (>0.8%w/v).0x95 With urine specimens, assay interference may be observedin the presence of: blood (>0.3% v/v), mucin (>0.2% w/v),bilirubin (>0.2 mg/mL), or Vagisil feminine powder (>0.2%w/v).0x95 Collection and testing of urine specimens with the XpertCT/NG test is not intended to replace cervical exams andendocervical sampling for diagnosis of urogenital infection.Other genitourinary tract infections can be caused by otherinfectious agents.0x95 The effects of other potential variables such as vaginaldischarge, use of tampons, douching, and specimen collectionvariables have not been determined.0x95 A negative test result does not exclude the possibility ofinfection because test results may be affected by improperspecimen collection, technical error, specimen mix-up,concurrent antibiotic therapy, or the number of organisms inthe specimen which may be below the sensitivity of the test.0x[address]/NG test should not be used for the evaluationof suspected sexual abuse or for other medico-legalindications. Additional testing is recommended in anycircumstance when false positive or false negative resultscould lead to adverse medical, social, or psychologicalconsequences.0x[address]/NG test provides qualitative results. Nocorrelation can be drawn between the magnitude of the Ctvalue and the number of cells in an infected sample.0x95 Positive results may be observed after successfulantibiotic treatment due to target nucleic acids fromresidual non-viable chlamydia.0x[address]/NG performance has not been evaluated inpatients less than 14 years of age.0x[address]/NG performance has not been evaluated inpatients with a history of hysterectomy.0x[address]/NG test has not been evaluated with patientswho are currently being treated with antimicrobial agentsactive against CT or NG.0x95 As with many diagnostic tests, results from the XpertCT/NG test should be interpreted in conjunction with otherlaboratory and clinical data available to the clinician.0x95 Mutations or other changes within the regions of thebacterial genomes covered by the primers and/or probes inthe Xpert assay may result in failure to detect the targetorganisms.C trach DNA Vag Ql SIXTO+probeN gonorrhoea rRNA Vag Ql SIXTO+probe Name Value Range Interpretation Code Description Data Dolores rce(s) Supporting Document(s) Trichomonas DNA Probe NOT DETECTED NOT DETECTED [facility] Gardnerella DNA Probe DETECTED NOT DETECTED Above high normal [facility] Increased levels of G. vaginalis may not be significantin the absence of signs and symptoms of bacterialvaginosis. Elsa species DNA Probe NOT DETECTED NOT DETECTED [facility] THIS TEST WAS PERFORMED AT:[employer] [address] [id number] MERATI,MD ID Date Data Source [id number] 09/01/2020 03:19:00 PM EDT [facility] Patient Name: EBONY MINER : 1990 Sex: F Pt Unit #: [id number] Location:[facility] Provider: Visit Date/Time: 09/01/20 Primary Insurance: [facility] Secondary Insurance: Self Pay Intake Vital Signs 09/01/20 15:25 Current Height 5 ft Current Weight 293 lb 6 oz Weight Measurement Method Standing Scale BMI 57.2 BP 122/78 Blood Pressure Location Lt brachial Position Standing Respiration 18 Pulse 97 Pulse Strength Normal Pulse Source Pulse Oximeter Temp 98.3 F Temp Source Tympanic Pulse Oximetry (%) 99 Oxygen Delivery Method simple mask 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 She is unsure of LMP so will go by dating US. She is 12 weeks today w [facility] SHYANN of 03/16/21. She would like all genetic testing done besides CF, she states with her first she was tested and she was a CF carrier (her brother has CF), but her was negative. She also has had a stillborn with Down Syndrome and a daughter born with Cancer-Teratoma, which is why she wants genetic testing to be done. She signed consent for AFP and declined CF since she has already had it done. Her last pap was 11/22/16 and negative with negative HPV. She has some nausea, but states the medication is working well. Has some cramping, but states it is very mild. Denies any bleeding or spotting. Was given NOB handouts and signed HIV consent form. Denies any concerns today. Spike Machine Heater Required: No Accompanied by: Is patient in pain?: No Allergies Sulfa (Sulfonamide Antibiotics) Allergy (Mild, Verified 09/02/20 09:39) Rash Medications - Last Reconciled 09/02/20 by Janis Norton MD [id number] oil 400 mcg-35 mg -25 mg-5 mg tabs PO promethazine 12.5 mg PO TID Is last menstrual period known: No Post menopausal: No Patient : Yes Fall Risk History of falls: No HIV Testing Offer - ages 13-64 HIV testing Offer: Yes Requirement for HIV testing offer been met?: Consents to testing today/Pretest education received and acknowledged SBIRT Annual Questionnaire Are you currently in recovery for alcohol or substance use?: No Coronavirus Screening Screening Are you currently positive or on isolation for COVID ?: No Do you have any NEW signs of one or more of the following?: no symptoms Do you have NEW signs of at least two of the following?: no symptoms PFSH Medical History Allergy to Sulfa daughter born with CA 1 still born at 37 wks down syndrome/1blighted ovum menarche 13 No Hx abn paps Surgical History H/O umbilical hernia repair History of - surgery (08/31/15) History of - surgery History of - surgery Status post tonsillectomy Family History Mother Diabetes Hypertension Daughter Cancer Social History Does the Patient have a Healthcare Proxy: No Does Patient have a DNR?: No Does Patient have a Living Will?: No Advance Directives on File or in chart?: No household members: spouse and children housing: house marital status: lives independently: Yes number of children: 3 highest education level completed: 11th grade service: No current occupational status: unemployed current occupation: [employer] pets and animals: Yes pets and animals: dog(s) Hx Recent Travel (where): No sexually active: Yes how many partners: 1 do you think of yourself as: straight/heterosexual current gender identity: female Smoking Status: Never smoker alcohol intake: current alcohol intake frequency: holidays/special occasions only substance use type: does not use seatbelt use: always helmet use: Yes helmet use: always drive intox or ride w/ intox frontload driver: No working smoke detector in home: Yes fire extinguisher in home: Yes carbon monox detector in home: Yes do you feel safe at home: Yes victim of physical abuse: No victim of emotional abuse: No victim of sexual abuse: No Female Reproductive History Menstrual Age of Menarche: 13 Duration of menses: 3-5 days control method: none Total pregnancies: 6 Ab induced: 0 Ab spontaneous: 1 Ectopics: 0 HPI HPI (1) : Menstrual History Age at menarche: 13 Associated symptoms (LMP): Denies nausea, vomiting, fatigue or irritability 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 Patient's age 35 years or older as of estimated date of delivery: No 2. Thalassemia (Vietnamese, Mauritian, Mediterranean, or Background); MCV less than 80: No 3. Neural Tube Defect (Meningomyelocele, Spina Bifida, or Anencephaly): No 4. Congenital Heart Defect: No 5. Down Syndrome: Yes (had a son with down's) 6. Harris-Sachs (Ashkenazi Mosque, Cajun, Ethiopian Tunisian): No 7. Sandra Disease (Ashkenazi Mosque): No 8. Familial Dysautonomia (Ashkenazi Mosque): No 9. Sickle Cell Disease or Trait (): No 10. Hemophilia or other blood disorders: No 11. Muscular Dystrophy: No 12. Cystic Fibrosis: Yes (patient's brother ) 13. Toyin's Chorea: No 14. Mental Retardation/Autism: Yes ('s aunt mental retardation ) 15. Other inherited genetic or chromosomal disorder: Yes (daughter had teretoma CA) 16. Maternal Metabolic Disorder (EG,TYPE 1 Diabetes, PKU): No 17. Patient or baby's father had a child with defects not listed above: No 18. Recurrent loss or a stillbirth: No 19. Medications (including supplements, vitamins, herbs or otc drugs)/illicit/recrea tional drugs/alcohol since last menstrual period: No Infection History 1. Live with someone with TB or exposed to TB: No 2. Rash or viral illness since last menstrual period: No 3. Hepatitis B,C: No Other (see comments) Initial Physical Examination Source: [employer] History History 6 Number of Living Children 3 Hx # Term Pregnancies 4 Hx # Pregnancies 0 Hx Total # of Abortions (Spontaneous Elective) 1 Ectopic pregnancies 0 Past Pregnancies Del. Date EGA/weeks Route # Outcome Route Wgt Sex Labor lgth Anesthesia Del Loc 04/24/11 40 Spontaneous Vaginal 1 live - full term vaginal 8 lb 4 oz FEMALE 12 Epidural No [facility] 07/02/13 6 Spontaneous spontaneous 12/11/13 37 Spontaneous Vaginal 1 still vaginal 7 lb 14 oz MALE 12 None No [facility] 01/20/15 40 Spontaneous Vaginal 1 live - full term vaginal 8 lb 10 oz FEMALE 1 2 Spinal No [facility] 09/22/16 40 Spontaneous Vaginal 1 live - full term vaginal 8 lb 11 oz F EMALE 12 Epidural None No [facility] Delivery Date: 04/24/11 No notes to display Delivery Date: 07/02/13 No notes to display Delivery Date: 12/11/13 had Down Syndrome Tracee Dominguez Delivery Date: 01/20/15 No notes to display Delivery Date: 09/22/16 No notes to display Screening/Counseling Genetic Screening/Counseling Genetic Screening/Teratology Counseling - Includes patient, baby's father, or anyone in either family with: 1. Patient's age 35 years or older as of estimated date of delivery: No 2. Thalassemia (Vietnamese, Mauritian, Mediterranean, or Background); MCV less than 80: No 3. Neural Tube Defect (Meningomyelocele, Spina Bifida, or Anencephaly): No 4. Congenital Heart Defect: No 5. Down Syndrome: Yes (had a son with down's) 6. Harris-Sachs (Ashkenazi Mosque, Cajun, Ethiopian Tunisian): No 7. Sandra Disease (Ashkenazi Mosque): No 9. Sickle Cell Disease or Trait (): No 10. Hemophilia or other blood disorders: No 11. Muscular Dystrophy: No 12. Cystic Fibrosis: Yes (patient's brother ) 13. Kemper's Chorea: No 14. Mental Retardation/Autism: Yes ('s aunt mental retardation ) 15. Other inherited genetic or chromosomal disorder: Yes (daughter had teretoma CA) 16. Maternal Metabolic Disorder (EG,TYPE 1 Diabetes, PKU): No 17. Patient or baby's father had a child with defects not listed above: No 18. Recurrent loss or a stillbirth: No 19. Medications (including supplements, vitamins, herbs or otc drugs)/illicit/recreational drugs/alcohol since last menstrual period: No Infection Screening Infection History 1. Live with someone with TB or exposed to TB: No 3. Rash or viral illness since last menstrual period: No 4. 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 She is unsure of LMP so will go by dating US. She is 12 weeks today with SHYANN of 03/16/21. She would like all genetic testing done besides CF, she states withher first she was tested and she was a CF carrier (her brother has CF), but her was negative. She also has had a stillborn with Down Syndrome and a daughter born with Cancer- Teratoma, which is why she wants genetic testing to be done. Her last pap was 11/22/16 and negative with negative HPV. She has some nausea, but states the medication is working well. Has some cramping, but states it is very mild. Denies any bleeding or spotting. Was given NOB handouts and signed HIV consent form. Denies any concerns today. OB sonogram: 08/04/2020: S IUP, CRL 15.9 mm =8 weeks 0 days gestation. FH174 bpm. Sono SHYANN: 03/16/2021. Small subchorionic fluid collection, hemorrhage,1.4 x 1.1 x 0.9 cm. Labs: 08/03/2020: UA/C Snormal. Lead<1; syphilisNR; HBsAgNR; HIVNR; rubellaimmune; varicellaimmune; group and RhO+, antibody screennegative. H/H13.3/39.2, GJG650c; TSH2.10 IU/ml. UDAnegative. 1. at 12 weeks gestation. Past history of demise at term. 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 2. Repeat OB sonogram to assess subchorionic bleed. 3. Labs: Pap, GC/chlamydia, PCR swab vagina. 4. Desires genetic screening, because of previous history of demise and Down's, and also patient's history of CF carrier. Janis Norton Review of Systems Const Denies anorexia, Denies excessive sweating, Denies fatigue, Denies fever(s), Denies headache(s), Denies weight gain and Denies weight loss Eyes Denies blurry vision, Denies change in vision, Denies dry eyes, Denies irritation, Denies itchy eyesand Denies loss of vision ENT Denies abnormal he aring, Denies dysphagia, Denies dizziness, Denies headache(s), Denies lip swelling, Denies nasal congestion, Denies nasal discharge, Denies disequilibrium, Denies sinus pain, Denies sore throat and Denies throat swelling Card Denies chest pain, Denies pedal edema, Denies lightheadedness, Denies palpitations and Denies dyspnea Resp Denies cough, Denies excessive phlegm production, Denies pain on inspiration, Denies dyspnea and Denies wheezing GI Denies abdominal pain, Denies change in bowel habits, Denies dysphagia, Denies early satiety, Deniesheartburn, Denies diarrhea, Denies nausea and Denies vomiting Genitourinary: Reports as per HPI Musc Denies back pain, Denies arthralgias, Denies limited range of motion, Denies muscle cramps and Denies muscle weakness Skin/Breast Denies breast pain, Denies change in pigmentation, Denies lesions, Denies nail changes, Denies rash and Denies unusual bruising Neuro Denies abnormal hearing, Denies dizziness, Denies headache(s), Denies loss of vision, Denies memory loss, Denies paresthesias and Denies disequilibrium Psych Denies abnormal sleep pattern, Denies anxiety, Denies change in appetite, Denies depression, Denies irritability and Denies memory loss Endo Denies cold intolerance, Denies excessive sweating, Denies fatigue, Denies polyphagia, Denies polydipsia, Denies polyuria and Denies palpitations Zhao/Lymph Denies easy bleeding, Denies easy bruising and Denies lymphadenopathy Aller/Immun Denies urticaria, Denies itchy eyes, Denies lip swelling, Denies seasonal rhinorrhea, Denies throat swelling and Denies wheezing Exam Const General: cooperative, healthy appearing, no acute distress, well developed and well groomed Nutritional Appearance: well nourished Orientation: alert, awake and oriented x3 [facility] Head: normal to inspection, normocephalic and atraumatic Ears: hearing grossly normal bilaterally and external ears normal General nose exam: external nose normal, nares normal, septum normal and no nasal discharge Face and sinus: normal facial exam Mouth: oral mucosae normal, lip normal, tongue normal and moist mucous membranes Eyes General: appearance normal, both eyes and all related structures Periorbital: periorbital findings normal Eyelids: eyelids normal Conjunctivae: conjunctivae normal Sclera: sclerae normal Pupils: PERRL EOM: EOM intact bilaterally Direct ophthalmoscopy: normal light reflex Neck Neck: normal visual inspection, full ROM, no lymphadenopathy, supple and no JVD present Neck mass: No Thyroid: thyroid normal Carotids: normal carotid upstroke Chest Chest: normal inspection of the chest Breast/Axilla Inspection: normal inspection of the breasts (Symmetrical, large size, pendulous, no skin changes.) and normal inspection of the axillae Breast/Axilla Palpation: normal palpation of the breasts (Soft, no masses, tenderness or nipple discharge.), normal palpation of the axillae and no axillary lymphadenopathy Resp Effort Inspection: normal respiratory effort Auscultation: clear to auscultation bilaterally Percussion: percussion normal Cardio Jugular venous pressure: no JVD Palpation: normal PMI Rate: regular rate Rhythm: regular rhythm Heart Sounds: S1 normal and S2 normal Pulses: normal peripheral pulses GI Inspection: Yes normal to inspection Palpation: soft (Morbidly obese, no masses.), no hepatosplenomegaly and nontender Percussion: normal to percussion Auscultation: normal bowel sounds General: bladder normal to inspection and bladder normal to palpation External Female Exam: normal external appearance (No erythema or lesions.) and normal appearance of the urethra Urethra: normal appearance of the urethra Speculum Exam - Vagina: normal appearance of the vagina and normal vaginal discharge (Moderate milkydischarge.) Speculum Exam - Cervix: normal appearance of the cervix (Parous.) Bimanual Exam- Vagina Uterus: normal bimanual exam, normal palpation, bladder normal to palpation,consistency normal, normal palpation (No CMT.), uterine mobility normal, uterine shape normal and enlarged (12-14 weeks size, soft, nontender.) Bimanual Exam- Adnexa, other: normal adnexae, no masses, normal and non-tender Pelvic Support: normal Musc Cervical Spine: normal cervical lordosis and cervical ROM normal Thoracic/Lumbar Spine: thoracic and lumbar spine normal to inspection, thoraco-lumbar ROM normal andstraight leg raise negative bilaterally Pelvis: no pain with anterior-posterior compression and no pain with lateral compression Skin Lesions: no lesions Rashes: no rashes Hair: normal Nails: normal Neuro General: patient alert, patient awake, patient oriented x3, gait normal, moves all extremities and normal light touch, pain and propioception Cranial Nerves: CN's II-XII intact bilaterally Cognition: normal cognition Speech: speech normal Gait: normal gait Motor: muscle tone normal throughout and strength 5/5 throughout Sensory Exam: no sensory deficits noted Extrem General: normal to inspection, full ROM, capillary refill normal, no clubbing, cyanosis or edema andno muscle atrophy Psych Appearance: grossly normal and well kempt Mental Status: mental status grossly normal Speech and Movement: speech and movement normal Affect: normal affect Attitude: cooperative Thought Process: normal Thought Content: normal Insight: insight good Judgment: judgment good Assessment Plan Assessment Plan (1) P regnancy: Code(s): Z34.90 - Encounter for supervision of normal , unspecified, unspecified trimester Plan: 1. at 12 weeks gestation. Sonogram consistent with dates. 2. Subchorionic bleed: To repeat OB sonogram next week. 3. Labs: Pap, GC/chlamydia, PCR swab vagina. 4. Desires genetic testing because of history. CF done previously: Patient is a carrier. Orders: Orders Cepheid CT/NG RT-PCR 09/01/20 Z34.90 - Encounter for supervision of normal , unspecified, unspecified trimester Vaginitis DNA Probe - Affirm 09/01/20 Z34.90 - Encounter for supervision of normal , unspecified, unspecified trimester Thinprep w/HPV if ASCUS 09/01/20 Z12.4 - Encounter for screening for malignant neoplasm of cervix Orders Follow Up: 4 Weeks <Electronically signed by Janis Norton MD> 09/02/20 1032 Name Value Range Interpretation Code Description Data Dolores rce(s) Supporting Document(s) ID Date Data Source [id number] 08/04/2020 03:34:00 PM EDT [facility] [address] [place] [id number] [phone] NAME SEX PT STATUS ACCOUNT NUMBER EBONY MINER REG REF [id number] ORDERING PHYSICIAN LOCATION MEDICAL RECORD NO. Janis Norton MD [id number] ATTENDING PHYSICIAN DATE OF DATE OF EXAM/TIME Doctor Provided,No Family 1990 08/04/201511 TYPE / EXAM US OB Ultrasound <14 weeks REASON FOR EXAM dating with SHYANN FINDINGS: Gestation: Single [place]-rump length: 15.9mm compatible with a 8 week 0 day gestational age. There is evidence of a subchorionic fluid collection consistent with a small hemorrhage. This measures 1.4 x 1.1 x 0.9 cm. heart rate: 174bpm. Uterus: 10.1 x 3. x 6.4cm. Right ovary: 2.3 x 2. x 2.8cm Left ovary: 1.7 x 2.1 x 1.8cm EDC: 16 March 2021. IMPRESSION: 1. Single live intrauterine with heart rate of 174 bpm. 2. [place]-rump length compatible with a 8 week 0 day gestational age. 3. Small subchorionic hemorrhage. Reported By Mendoza Anderson MD on 08/04/201533 Signed By Mendoza Anderson MD on 08/04/201536 Date Time CC: Mendoza Anderson M.D.; No Family PHYS Provided Techn: TABSA Trans Dt/Tm: Trans by: DT Prt Dt/Tm: 23: Total DLP = 0.00 mGy-cm : Total Radiation Dose = 0.0000 mSv Lifetime Dose: 0 mSv Name Value Range Interpretation Code Description Data Dolores rce(s) Supporting Document(s) ID Date Data Source [id number] 08/03/2020 02:54:00 PM EDT [facility] @08/03/20 1435: UA W/ MICRO added. RFLXG = UMIC.Method of Collection:: Clean Catch 25,000 CFU/MLStaph spp. coag negProbable contaminants no senst done @08/03/20 1435: UA W/ MICRO added. RFLXG = UMIC.Method of Collection:: Clean Catch Name Value Range Interpretation Code Description Data Dolores rce(s) Supporting Document(s) Color of Urine [facility] Appearance of Urine CLEAR Abnormal (applies to non-nu meric results) [facility] pH of Urine by Test strip 5.5 5-8 [facility] Specific gravity of Urine by Refractometry 1.022 1.005-1.030 [facility] Leukocyte esterase [Presence] in Urine by Test strip NEGATIVE Above high normal [facility] @DO MICRO!!!! Nitrite [Presence] in Urine by Test strip NEGATIVE [facility] Protein [Presence] in Urine by Test strip NEGATIVE [facility] Glucose [Mass/volume] in Urine by Automated test strip NEGATIVE NEG ATIVE [facility] Ketones [Presence] in Urine by Test strip NEGATIVE [facility] Urobilinogen [Presence] in Urine 0.2-1 EU/dl [facility] Bilirubin.total [Presence] in Urine by Automated test strip NEGATIVE [facility] Erythrocytes [#/volume] in Urine by Test strip NEGATIVE NEGATIVE [facility] URINE MICROSCOPIC ADDED Microscopic Added [facility] @DONE WITH JW ID Date Data Source [id number] 08/04/2020 08:50:00 AM EDT [facility] @08/03/20 1435: UA W/ MICRO added. RFLXG = UMIC.Method of Collection:: Clean Catch 25,000 CFU/MLStaph spp. coag negProbable contaminants no senst done @08/03/20 1435: UA W/ MICRO added. RFLXG = UMIC.Method of Collection:: Clean Catch Name Value Range Interpretation Code Description Data Dolores rce(s) Supporting Document(s) ID Date Data Source [id number] 08/07/2020 06:25:00 PM EDT [facility] @08/03/20 1435: UA W/ MICRO added. RFLXG = UMIC.Method of Collection:: Clean Catch 25,000 CFU/MLStaph spp. coag negProbable contaminants no senst done @08/03/20 1435: UA W/ MICRO added. RFLXG = UMIC.Method of Collection:: Clean Catch Name Value Range Interpretation Code Description Data Dolores rce(s) Supporting Document(s) [facility] See scanned report [facility] ID Date Data Source [id number] 08/03/2020 02:54:00 PM EDT [facility] @08/03/20 1435: UA W/ MICRO added. RFLXG = UMIC.Method of Collection:: Clean Catch 25,000 CFU/MLStaph spp. coag negProbable contaminants no senst done @08/03/20 1435: UA W/ MICRO added. RFLXG = UMIC.Method of Collection:: Clean Catch Name Value Range Interpretation Code Description Data Dolores rce(s) Supporting Document(s) Erythrocytes [#/volume] in Urine by Manual count 1-2 /hpf 0-5 [facility] Leukocytes [#/volume] in Urine by Manual count 2-4 /hpf 0-5 [facility] Cells [Type] in Urine sediment by Light microscopy [facility] Bacteria [Presence] in Urine sediment by Light microscopy NEGATIVE Above high normal [facility] ID Date Data Source [id number] 08/03/2020 02:26:00 PM EDT [facility] Patient Street Address: [address] [place] [address] City: [place]: [place] Zip Code: [address] Patient [address] Address: [address] [place] [address] City: [place] State: [place] Zip Code: [address]Ehnnxrf Name Value Range Interpretation Code Description Data Dolores rce(s) Supporting Document(s) Leukocytes [#/volume] in Blood by Automated count 10.9 10*3/uL 4.45-10.71 Above high normal [facility] Erythrocytes [#/volume] in Blood by Automated count 4.62 10*6/uL 4.20 -5.40 N [facility] Hemoglobin [Moles/volume] in Blood 13.3 g/dL 10.7-15.4 N [facility] Hematocrit [Volume Fraction] of Blood by Automated count 39.2 % 3 7-47 N [facility] Erythrocyte mean corpuscular volume [Ent itic volume] in Cord blood by Automated count 85 fL 80-96 N [facility] ital Erythrocyte mean corpuscular hemoglobin [Entitic mass] by Au tomated count 29 pg 27-31 N [facility] Erythrocyte mean corpuscular hemoglobin concentration [Mass/volume] in Cord blood 34 g/dL 33-37 N [facility] ital Erythrocyte distribution width [Entitic volume] by Automated count 12 % 11-15 N [facility] Platelets [#/volume] in Blood by Automated count 297 10*3/uL 130-472 N [facility] Platelet mean volume [Entitic volume] in Blood 9.7 fL 9.1-13.1 N [facility] Neutrophils/100 leukocytes in Blood by Automated count 75.0 % 41- 77 N [facility] Neutrophils [#/volume] in Blood by Automated count 8.2 U 1.7-7.6 Above high normal [facility] Lymphocytes/100 leukocytes in Blood by Automated count 18.7 % 14- 46 N [facility] Lymphocytes [#/volume] in Blood by Automated count 2.0 U 0.6-4.6 N [facility] Monocytes/100 leukocytes in Blood by Automated count 5.0 % 4-12 N [facility] Monocytes [#/volume] in Blood by Automated count 0.6 U 0.2-1.2 N [facility] Eosinophils/100 leukocytes in Blood by Automated count 0.6 % 0-7 N [facility] Eosinophils [#/volume] in Blood by Automated count 0.1 U 0.0-0.5 N [facility] Basophils/100 leukocytes in Blood by Automated count 0.5 % 0.4-1 .3 N [facility] Basophils [#/volume] in Blood by Automated count 0.1 U 0.0-0.2 N [facility] NUCLEATED RED BLOOD CELL 0 % [facility] NUCLEATED RED BLOOD CELL# 0 U [facility] Immature granulocytes [Presence] in Blood by Automated count 0-2 N [facility] Immature granulocytes [#/volume] in Blood by Automated count 0.0 U 0-0.1 N [facility] Manual Differential panel - Blood NO [facility] ID Date Data Source [id number] 08/03/2020 03:05:00 PM EDT [facility] Patient Street Address: [address] [place] [address] City: [place] State: [place] Zip Code: [id number] Patient [address] Address: [address] [place] [address] City: [place]: [place] Zip Code: [address]Adbambr Name Value Range Interpretation Code Description Data Dolores rce(s) Supporting Document(s) Choriogonadotropin.beta subunit [Units/volume] in Seru m or Plasma 76[address] m[iU]/mL 1-3 Above high normal [facility] spital @Instrument will autodiluteApproximate G estational Age Approximate HCG Range 0.2-1 Week 5 - 50 1-2 Weeks 50 - 500 2-3 Weeks 100 - 5,000 3-4 Weeks 500 - 10,000 4-5 Weeks 1,000 - 50,000 5-6 Weeks 10,000 - 100,000 6-8 Weeks 15,000 - 100,000 2-3 Months 10,000 - 100,000 ID Date Data Source [id number] 08/05/2020 03:27:00 PM EDT [facility] Patient Street Address: [address] [place] [address] City: [place]: [place] Zip Code: [address] Patient [address] Address: [address] [place] [address] City: [place]: [place] Zip Code: [address]Fazpurq Name Value Range Interpretation Code Description Data Dolores rce(s) Supporting Document(s) Lead [Moles/volume] in Blood <1 mcg/dL <5 L [facility] See Note 1Note 1This test was developed and its analytical performancecharacteristics have been determined by [employer]. It has not been cleared or approved by theA. This assay has been validated pursuant to the CLIAregulations and is used for clinical purposes.THIS TEST WAS PERFORMED AT:[facility] [id number] MERATI,MD ID Date Data Source [id number] 08/08/2020 02:19:00 PM EDT [facility] Patient [address] Address: [address] [address] [facility] City: [place]: [place] Zip Code: [address] Address: [address] [facility] City: [place]: [place] Zip Code: [address]Lzknbnh Name Value Range Interpretation Code Description Data Dolores rce(s) Supporting Document(s) HIV (1&2) Screen, 4th Gen NON-REACTIVE NON-REACTIVE [facility] HIV-1 antigen and HIV-1/HIV-2 antibodies were notdetected. There is no laboratory evidence of HIVinfection.PLEASE NOTE: This information has been disclosed toyou from records whose confidentiality may beprotected by state law. If your state requires suchprotection, then the state law prohibits you frommaking any further disclosure of the informationwithout the specific written consent of the personto whom it pertains, or as otherwise permitted by law.A general authorization for the release of medical orother information is NOT sufficient for this purpose.For additional information please refer toht tp://education.Trupanion.Tinitell/faq/ZUY578(This link is being provided for informational/educational purposes only.)The performance of this assay has not been clinicallyvalidated in patients less than 2 years old.THIS TEST WAS PERFORMED AT:[facility] [id number] MERATI,MD HIV 1 Ab [Presence] in Serum, Plasma or Blood by Rapid immunoassay [facility] HIV 1 RNA [Presence] in Serum or Plasma by Probe and target amplification method [facility] ital Treponema pallidum Ab [Presence] in Serum by Agglutination Nonreactive [facility] Rapid Plasma Reagin (RPR) [facility] Reagin Ab [Titer] in Serum by RPR [facility] Hepatitis B virus surface Ag [Presence] in Serum or Plasma b y Immunoassay NON-REACTIVE [facility] THIS TEST WAS PERFORMED AT:[facility] [id number] MERATI,MD HBsAg Confirmation [facility] Rubella virus IgG Ab [Units/volume] in Serum or Plasma by Immunoassay 1.56 Index [facility] Index Interpretation - ---- <0.90 Not consistent with immunity 0.90-0.99 Equivocal > or = 1.00 Consistent with immunityThe presence of rubella IgG antibody suggestsimmunization or past or current infection withrubella virus.THIS TEST WAS PERFORMED AT:[facility] [address]JJJLDQ MERATI,MD ID Date Data Source [id number] 08/03/2020 03:05:00 PM EDT [facility] Patient Street Address: [address] [place] [address] City: [place]: [place] Zip Code: [address] Address: [address] [facility] City: [place]: [place] Zip Code: [address]Rosvcyj Name Value Range Interpretation Code Description Data Dolores rce(s) Supporting Document(s) Thyrotropin [Units/volume] in Serum or Plasma by Detec tion limit <= 0.005 mIU/L 2.10 u[iU]/mL 0.35-5.50 N [facility] al ID Date Data Source [id number] 08/05/2020 03:27:00 PM EDT [facility] Patient [address] Address: [address] [facility] City: [place] State: [place] Zip Code: [address] Patient [address] Address: [address] [facility] City: [place]: [place] Zip Code: [address]Sbzcwdd Name Value Range Interpretation Code Description Data Dolores rce(s) Supporting Document(s) Varicella zoster virus IgG Ab [Units/volume] in Serum by Immunoassay 250.70 index [facility] Index Interpretatio n --------- <135.00 Negative - Antibody not detected 135.00 - 164.99 Equivocal > or = 165.00 Positive - Antibody detected A positive result indicates that the patient has antibody to VZV but does not differentiate between an active or past infection. The clinical d iagnosis must be interpreted in conjunction with the clinical signs and symptoms of the patient. This assay reliably measures immunity due to previous infection but may not be sensitive enough to detect antibodies induced by vaccination. Thus, a negative result in a vaccinated individual does not necessarily indicate susceptibility to VZV infection. A more sensitive test for vaccination-induced immunity is Varicella Zoster Virus Antibody Immunity Screen, ACIF.THIS TEST WAS PERFORMED AT:[facility] [address]WOGCLI MERATI,MD ID Date Data Source [id number] 08/03/2020 03:21:00 PM EDT [facility] Name Value Range Interpretation Code Description Data Dolores rce(s) Supporting Document(s) Blood bank studies (set) Yes [facility] Blood Type [facility] Antibody Screen (PN) NEGATIVE [facility] ID Date Data Source [id number] 08/03/2020 01:13:00 PM EDT [facility] Patient Name: EBONY MINER : 1990 Sex: F Pt Unit #: [id number] Location:[facility] Provider: Visit Date/Time: 08/03/20 Primary Insurance: [facility] Secondary Insurance: Self Pay Intake Vital Signs 08/03/20 13:27 Current Height 5 ft Current Weight 291 lb 2 oz Weight Measurement Method Standing Scale BMI 56.8 BP 110/78 Blood Pressure Location Lt brachial Position Sitting Respiration 18 Pulse 89 Pulse Strength Normal Pulse Source Pulse Oximeter Temp 98.2 F Temp Source Tympanic Pulse Oximetry (%) 99 Oxygen Delivery Method room air 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 Urine HCG done in office and is positive. Patient stat es that she has had irregular periods since having Mirena removed June 2019, states her last normal period was November or December 2019, she had a 2 day period in April 2020 that was not normal for her but does not remember exactly when it was. She has been experiencing some nausea, butnot vomiting. She also has noticed some movements over the last week or so. States that she has had some cramping, but only if she sits up too fast or moves too fast. Denies any vaginal bleeding or spotting. She is a , 1 blighted ovum and a stillborn with down syndrome at 37 weeks. Also had1 child born with CA that is also blind. Denies any concerns today. Spike Machine Heater Required: No Accompanied by: Is patient in pain?: No Allergies Sulfa (Sulfonamide Antibiotics) Allergy (Mild, Verified 08/03/20 17:55) Rash Medications - Last Reconciled 08/03/20 by Janis Norton MD NOD20-SH-da7-ozl-kty-ilwj oil 400 mcg-35 mg - 25 mg-5 mg tabs PO Post menopausal: No Patient : Yes Vision Wearing glasses?: No Fall Risk History of falls: No Ambulatory Aid:: None Gait/Transferring:: Normal Medications:: No High Risk Medications HIV Testing Offer - ages 13-64 HIV testing Offer: No SBIRT Annual Questionnaire Are you currently in recovery for alcohol or substance use?: No Coronavirus Screening Screening Are you currently positive or on isolation for COVID ?: No Do you have any NEW signs of one or more of the following?: no symptoms Do you have NEW signs of at least two of the following?: no symptoms 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 Menstrual History Hx Age of Menarche: 13 Menstrual pattern Cycle length: irregular Duration of menses: 3-5 days Menstrual flow: Normal Sanitary products used: pads Per hour, how often product changed during heaviest flow?: 2 Intermenstrual bleeding?: No Menstrual pain: mild Menstrual regularity: irregular Gynecologic pain symptoms: Reports none Contraception control method: none Previous methods tried?: OCP's and IUD Cervical and Vaginal Cytology Ever treated for STI: No STD Screening: No Data to Display Hx Sexually Transmitted Disorders: No HIV risk evaluation: low risk Hepatitis B risk evaluation: low risk Sexual History Sexually active: Yes Age at first sexual contact: 19 Do you think of yourself as: straight/heterosexual Number of lifetime partners: 1 Number of partners in last 3 months [[facility]]: 1 Condom use: never Sexual concerns: None Sexual abuse: No History History 6 Number of Living Children 3 Hx # Term Pregnancies 4 Hx # Pregnancies 0 Hx Total # of Abortions (Spontaneous Elective) 1 Ectopic pregnancies 0 Additional details: Spontaneous AB x1, blighted ovum. PFSH Medical History Allergy to Sulfa daughter born with CA 1 still born at 37 wks down syndrome/1blighted ovum menarche 13 No Hx abn paps Surgical History H/O umbilical hernia repair History of - surgery (08/31/15) History of - surgery History of - surgery Status post tonsillectomy Family History Mother Diabetes Hypertension Da ughter Cancer Social History Does the Patient have a Healthcare Proxy: No Does Patient have a DNR?: No Does Patient have a Living Will?: No Advance Directives on File or in chart?: No household members: spouse and children housing: house marital status: lives independently: Yes number of children: 3 highest education level completed: 11th grade service: No current occupational status: unemployed current occupation: [employer] pets and animals: Yes pets and animals: dog(s) Hx Recent Travel (where): No sexually active: Yes how many partners: 1 do you think of yourself as: straight/heterosexual current gender identity: female Smoking Status: Never smoker alcohol intake: current alcohol intake frequency: holidays/special occasions only substance use type: does not use seatbelt use: always helmet use: Yes helmet use: always drive intox or ride w/ intox frontload driver: No working smoke detector in home: Yes fire extinguisher in home: Yes carbon monox detector in home: Yes do you feel safe at home: Yes victim of physical abuse: No victim of emotional abuse: No victim of sexual abuse: No Female Reproductive History Menstrual Age of Menarche: 13 Duration of menses: 3-5 days control method: none Total pregnancies: 6 Full term: 4 Premature: 0 Ab induced: 0 Ab spontaneous: 1 Ectopics: 0 Multiple births: 0 HPI Additional HPI HPI Details: 30-year-old CF -0-1-3 LMP: December 2019. Complaints of amenorrhea. Patient has history of irregular cycles after her Mirena was removed in June 2019. December 2019 she had what was a large normal menses. April 2020, she had light bleeding for 2 days, almost spotting urine test at home negative. 2 weeks ago beginning of July 2020, urine test positive. Recently, she felt like she couldfeel baby move. Has nausea, but has not vomited to date. 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 Can see with her left eye. [facility] at [facility]. Second : Stillborn with Down syndrome at 37 weeks gestation 6-7 years ago. [facility]. Third : Blighted ovum, D C done. Last 2 children: Both healthy no problems. They have 3 living children. Review of Systems Const Reports as per HPI and Denies headache(s) ENT Denies headache(s) GI Reports nausea and Denies vomiting Genitourinary: Reports abnormal menses and amenorrhea Neuro Denies headache(s) Exam Const General: cooperative, healthy appearing, comfortable and well developed Nutritional Appearance: well nourished and obese morbidly obese Orientation: alert, awake and oriented x3 General: deferred Assessment Plan Assessment Plan (1) Encounter to establish care with new doctor: Code(s): Z76.89 - Persons encountering health services in other specified circumstances (2) Amenorrhea: Status: Acute Code(s): N91.2 - Amenorrhea, unspecified SNOMED Code(s): 45371643 Category: Medical Plan: 1. Amenorrhea: UCG in office: Positive. 2. Serum hCG today. 3. For OB sonogram. Orders: Orders Type and Screen Today Z34.90 - Encounter for supervision of normal , unspecified, unspecified trimester BHCG Quantitative Today N91.2 - Amenorrhea, unspecified, Z34.90 - Encounter for supervision of normal , unspecified, unspecified trimester TSH Today Z34.90 - Encounter for supervision of normal , unspecified, unspecified trimester CBC Today Z34.90 - Encounter for supervision of normal , unspecified, unspecified trimester Urine culture Today Z34.90 - Encounter for supervision of normal , unspecified, unspecifiedtrimester Lead (Venous) Wh.Bld Today Z34.90 - Encounter for supervision of normal , unspecified, unspecified trimester [facility] Drug Pnl + Confirm Today Z34.90 - Encounter for supervision of normal , unspecified, unspecified trimester Varicella-Zoster IgG Antibody Today Z34.90 - Encounter for supervision of normal , unspecified, unspecified trimester PN Sero (HIV,SYPH,RUB,HBSAG) Today Z34.90 - Encounter for supervision of normal , unspecified, unspecified trimester URINALYSIS Today Z34.90 - Encounter for supervision of normal , unspecified, unspecified trimester US OB Ultrasound >14 wks 2 Weeks Z34.90 - Encounter for supervision of normal , unspecified, unspecified trime ster US OB Ultrasound <14 weeks 2 Weeks Z34.90 - Encounter for supervision of normal , unspecified, unspecified trimester Orders Follow Up: 2 Weeks [place] [address] New Pt Limited Comp Patient Type New History Expanded Problem Focused Exam Problem Focused Medical Decision Making Straight Forward Diagnoses Encounter to establish care with new doctor Z76.89 Amenorrhea N91.2 Time Spent (min) 15 <Electronically signed by Janis Norton MD> 08/03/20 1812 Name Value Range Interpretation Code Description Data Dolores rce(s) Supporting Document(s) ID Date Data Source TSH 04/23/2020 12:00:00 AM EST eCW1 ([facility]) Name Value Range Interpretation Code Description Data Dolores rce(s) Supporting Document(s) 2.350 0.358-3.740 THYROID STIMULATING HORM ONE eCW1 ([facility]) ID Date Data Source FREE T4 04/23/2020 12:00:00 AM EST eCW1 ([facility]) Name Value Range Interpretation Code Description Data Dolores rce(s) Supporting Document(s) 1.02 0.76-1.46 FREE T4 W1 ([facility]) Procedure Social History Code Duration Value Status Description Data Source(s ) Smoking 12/31/2020 12:00:00 AM EST Former Smoker completed Former Smoker eCW1 ([facility]) Smoking 12/31/2020 12:00:00 AM EST Former Smoker completed Former Smoker eCW1 ([facility]) Smoking 12/07/2020 12:00:00 AM EDT Former Smoker completed Former Smoker [email or web address] ([facility]) 08/03/2020 01:23:05 PM EDT Never smoker completed Never [facility] 08/03/2020 01:23:05 PM EDT Never smoker completed Never [facility] 08/03/2020 01:23:05 PM EDT Never smoker completed Never [facility] 08/03/2020 01:23:05 PM EDT Never smoker completed Never [facility] Smoking 08/03/2020 01:23:00 PM EDT Never smoker completed Never [facility] Smoking 04/23/2020 12:00:00 AM EST Former Smoker completed Former Smoker [email or web address] ([facility]) Smoking 04/23/2020 12:00:00 AM EST Former Smoker completed Former Smoker eCW1 ([facility]) Vital Signs ID Date Data Source UNK Name Value Range Interpretation Code Description Data Source(s) Body weight 286.2 [lb_av] 286.2 [lb_av] eCW1 ([facility]) Body mass index (BMI) [Ratio] 54.077 kg/m2 54.0 77 kg/m2 eCW1 ([facility]) Systolic blood pressure 128 mm[Hg] 128 mm[Hg] e CW1 ([facility]) Diastolic blood pressure 90 mm[Hg] 90 mm[Hg] eCW1 ([facility]) Body weight 129.82 kg 129.82 kg eCW1 ([facility]) Body height 61 [in_i] 61 [in_i] eCW1 ([facility]) Body weight 295 [lb_av] 295 [lb_av] eCW1 ([facility]) Body height [in_i] eCW1 ([facility]) Body mass index (BMI) [Ratio] 55.73 kg/m2 55.73 kg/m2 eCW1 ([facility]) Heart rate 100 /min 100 /min eCW1 ([facility]) Respiratory rate 18 /min 18 /min eCW1 ([facility]) Body temperature 96.9 [degF] 96.9 [degF] eCW1 ( [facility]) Systolic blood pressure 128 mm[Hg] 128 mm[Hg] e CW1 ([facility]) Diastolic blood pressure 88 mm[Hg] 88 mm[Hg] eCW1 ([facility])
--- OUTSIDE RECORDS SUMMARY | 2021-01-04 13:19 | CCD ---
Author Author [facility] Organization [facility] Address Unknown Phone Unavailable Care Team Providers Care Sales Agent Business Services Name Role Phone BeatriceJez cardlette Unavailable PROBLEMS Type Condition ICD9-CM Code [id number] Code Onset Dates Condition S tatus W/U Status Risk SNOMED Code Notes Problem Amenorrhea N91.2 Active confirmed 61947892 Problem Supervision of other normal Z34.80 Ac tive confirm 130512808 Problem Morbid obesity E66.01 Active confirmed 32382 6002 Problem GERD without esophagitis K21.9 Active confirmed 713192651 Problem Migraine without aura and without status migrain osus, not intractable G43.009 Active confirmed [id number] ALLERGIES Allergen (clinical drug ingredient) Drug/Non Drug Allergy do cumented on EMR Reaction Allergy Type Onset Date Status Sulfasalazine Sulfa Antibiotics Rash Drug Allergy 07/18/2019 Ac tive ENCOUNTERS from 1992 to 2021-01-01 Encounter Location Date Provider Diagnosis [facility] [address] [place] [address] [place] [address] Dec, Sanjana Kellogg IMMUNIZATIONS Vaccine Route Administration Date Status TDAP 0.5mL Boostrix IM Intramuscular Dec 24, 2020 Administere d Influenza 6mo & up Fluzone IM Intramuscular Dec 24, 2020 Admi nistered SOCIAL HISTORY Tobacco Use: Social History Observation Description Date Details (start date - stop date) Former Smoker Sex Assigned At : Social History Observation Description Sex Assigned At Unknown Education: Question Answer Notes Level of Education: Not finished High School Completed 11th grade Audit Question Answer Notes Total Score: 0 Interpretation: Alcohol Education Language: Question Answer Notes Languages spoken: French Voodoo: Question Answer Notes Voodoo No hindu beliefs that would impact health care. Drug and Alcohol Question Answer Notes Total Score: 0 Interpretation: No problems reported Tobacco Use: Question Answer Notes Are you a: former smoker REASON FOR REFERRAL No Information VITAL SIGNS No information MEDICATIONS Medication SIG (Take, Route, Frequency, Duration) Notes Start Da te End Date Status Omeprazole 40 MG 1 capsule 30 minutes before morning meal Orally twice daily for 30 day(s) June, Not-Taking 27-1 MG 1 tablet Orally Once a day Active Sucralfate 1 GM 1 tablet on an empty stomach Orally three times daily Not-Taking Mupirocin 2 % 1 application Externally thr ee times daily to left upper arm for 7 day(s) Jul, Not-Taking Zofran ODT Active Tylenol 325 MG 1 tablet as needed Orally every 4 hrs Active PROCEDURES No Information RESULTS No Results REASON FOR VISIT No Information MEDICAL (GENERAL) HISTORY Type Description Date Medical History Gastritis/GERD Medical History morbid obesity Medical History CF carrier Surgical History laparoscopic repair of umbilical hernia 06/07 Surgical History tubes in ears, tonsils as a child Hospitalization History child - vaginal deliveries Hospitalization History hernia repair 06/07 Goals Section No Information Health Concerns No Information MEDICAL EQUIPMENT No Information MENTAL STATUS No Information FUNCTIONAL STATUS No Information ASSESSMENTS No Information PLAN OF TREATMENT Next Appt Details Provider Name:Curt Yimi Anne, 10:40:00 AM, [address] [facility], , [place], [address], Insurance Providers Payer Name Payer Address Payer Phone Insured Name Patient Relati onship to Insured Coverage Start Date Coverage End Date FORMERLY [facility], [facility] [employer] [address] [facility] [phone] EBONY CHANG self
--- NOTE | 2021-01-04 15:15 | REP ---
INDICATION: sent by OB ro pneumonia, +covid. COMPARISON: None. TECHNIQUE: PA and lateral FINDINGS: Cardiomediastinal silhouette is within normal limits. There are patchy interstitial and airspace opacities seen bilaterally right greater than left. The pleural angles are sharp. The osseous structures are normal. IMPRESSION: Pneumonia <Electronically signed by Winston Bang > 01/04/21 0931
[2021-01-04 15:53] VITALS: BP 141/67
--- OUTSIDE RECORDS SUMMARY | 2021-01-04 16:03 | CCD ---
Author Author [facility] Organization [facility] Address Unknown Phone Unavailable Care Team Providers Care Endocrinology Nurse Name Role Phone EDWARD FINE Unavailable Unavailable [...] is protected by Article 27-F of the [facility] Public Health law. If you continue you may have access to information: Regarding HIV / AIDS; Provided by facilities licensed or operated by the [facility] Office of Mental Health; or Provided by the [facility] Office for People With Developmental Disabilities. If such information is present, then the following [facility] mandated warning applies: This information has been [...] law may result in a fine or skilled nursing sentence or both. A general authorization for the release of medical or other information is NOT sufficient authorization for further disc losure. Allergies and Adverse Reactions Type Description Substance Reaction Status Data Source(s ) Drug allergy Sulfa (Sulfonamide Antibiotics) Sulfa (Sulfonami de Antibiotics) Rash [facility] Family History Family Member Name Family Member Gender Family Member Status Date o f Status Description Data Source(s) Unknown Condition [facility] Unknown Condition [facility] Unknown Condition [facility] Unknown Condition [facility] Unknown Condition [facility] Unknown Condition [facility] Unknown Condition [facility] Unknown Condition [facility] Unknown Male Problem MEDENT ([facility]) Unknown Unknown Problem MEDENT ([facility]) Encounters Encounter Providers Location Date Indications Data Source(s ) Unknown [address] [facility] [address] 12/31/2020 12:00:00 AM EST eCW1 ([facility]) Unknown [address] [facility] [address] 12/29/2020 12:00:00 AM EST [facility]CW1 [facility]) ( MARIAM) [facility] OB Visit [address] [place] [address] 12/07/2020 12:00:00 AM EDT eCW1 ([facility]) Outpatient 10/27/2020 01:00:00 PM EDT anatomy [facility] anatomy Outpatient Attender: ERNA MALASeven Bria jose: Eran Reginarer: JANIS NORTON [id number] 10/21/2020 12:00:00 AM EDT - 10/21/2020 02:53:[address] [facility] Outpatient Attender: EDWARD FINEReferrer: JANIS NORTON 10/21/2020 12:00:[address] [facility] Outpatient Attender: Janis Norton MD 09/29/2020 0 3:07:00 PM EDT Z82.79,O09.293,Z80.8 [facility] Z82.79,O09.293,Z80.8 Outpatient Attender: Janis Norton MDReferrer: No Family Doctor Provided 09/29/2020 02:25:00 PM EDT - 09/29/2020 02:55:00 PM EDT [facility] Outpatient Attender: Roberth Pavon MD 09/14/2020 02:20:00 PM EDT F/U SUBCORE [facility] F/U SUBCORE Outpatient Attender: Janis Norton MD 09/01/2020 05:47:0 0 PM EDT [facility] Outpatient Attender: Janis Norton MDReferrer: No Family Doctor Provided 09/01/2020 02:47:00 PM EDT - 09/01/2020 04:09:00 PM EDT [facility] Outpatient Attender: Janis Norton MD 08/04/2020 0 2:06:00 PM EDT DATING, ANATOMY? [facility] DATING, ANATOMY? Outpatient Attender: Janis Norton MD 08/03/2020 01:57:0 0 PM EDT [facility] Outpatient Attender: Janis Norton MDReferrer: No Family Doctor Provided 08/03/2020 01:51:00 PM EDT - 08/03/2020 01:58:00 PM EDT [facility] [place] [address] [facility] [address] 04/23/2020 12:00:00 AM EST eCW1 ([facility]) [place] [address] [facility] [address] 04/23/2020 12:00:00 AM EST eCW1 ([facility]) [place] [address] [facility] [address] 01/26/2020 12:00:00 AM EST eCW1 ([facility]) Immunizations Vaccine Date Status Description Data Source(s) Tdap 12/24/2020 08:52:00 AM EDT completed e CW1 ([facility]) Tdap 12/24/2020 08:52:00 AM EDT completed e CW1 ([facility]) New in 2011. IIV4 12/24/2020 08:51:00 AM EDT completed eCW1 ([facility]) New in 2011. IIV4 12/24/2020 08:51:00 AM EDT completed eCW1 ([facility]) Medications Medication Brand Name Start Date Product [...] 09/08/2020 05:10:51 PM EDT 1 APPFUL completed [facility] Promethazine Hydrochloride 12.5 MG Oral Tablet Promethazine 08/11/2020 01:07:38 PM EDT 12.5 MG active [facility] 12.5 mg 08/11/2020 12:00:00 AM EDT tablet 90 TAKE ONE TABLET BY MOUTH THREE TIMES A DAY TAKE ONE TABLET BY MOUTH THREE TIMES A DAY SOLD: 08/11/2020 [facility] Pnr86-Ji-Vd7-Unb-Edp-Bprr Oil 08/03/2020 01:17:07 PM EDT active [facility] Alprazolam 0.25 MG Oral Tablet Alprazolam (Xanax) 0.25 MG tablet Alprazolam (Xanax) 0.25 MG tablet 09/28/2016 12:25:00 PM EDT 0.25 MG [facility] 24 HR Bupropion Hydrochloride 300 MG Ext ended Release Oral Tablet Bupropion Hcl (Wellbutrin Xl) 300 MG tablet extended release 24 hr Bupropion Hcl (Wellbutrin Xl) 300 MG tablet extended release 24 hr 09/28/2016 10:32:00 AM EDT 300 MG completed [facility] Ibuprofen 800 MG Oral Tablet Ibuprofen 09/24/2016 09:24:14 AM EDT 800 MG completed [facility] Ranitidine 150 MG Oral Tablet Ranitidine Hcl (Zantac) 150 MG tablet Ranitidine Hcl (Zantac) 150 MG tablet 09/07/2016 02:44:00 PM EDT 150 MG [facility] Pnv 9-Ohht-Rr-R52-Pzobrzy-K7 (Mteryti Fo lic 5 Combo Pack) 1 EACH tablets, sequential 03/10/2016 03:39:00 PM EST 1 EACH compl eted [facility] Insurance Providers Payer name Policy type / Coverage type Policy ID Covered green party ID Covered green party's relationship to burk Policy Burk Plan Information [facility] I [id number] Self [id number] [facility] I [id number] Self [id number] MEDICAID M [id number] Self [id number] [facility] P [id number] S [id number] [facility] Health Maintenance Organization (HMO) [id number] Self [id number] [facility] Health Maintenance Organization (O) [id number] Self [id number] [facility] Health Maintenance Organization (O) [id number] Self [id number] [facility] Health Maintenance Organization (O) [id number] Self [id number] [facility] Health Maintenance Organization (O) [id number] Self [id number] [facility] Health Maintenance Organization (O) [id number] Self [id number] [facility] I [id number] Self [id number] [facility] Health Maintenance Organization (O) [id number] Self [employer] [employer] [id number] SP [id number] [facility]) P [id number] S [id number] [facility]CA[facility]) P UNAVAILABLE S UNAVAILABLE [facility]) P [id number] S [id number] SELF PAY UNAVAILABLE UNAVAILA BLE BLUE CROSS GARZA PLAN [id number] SP [id number] HMO BLUE [id number] SP [id number] MEDICAID [id number] SP [id number] [facility] COMMUN[facility] [id number] SP [id number] [facility] COMM[facility] [id number] SP [id number] Problems, Conditions, and Diagnoses Code Display Name Description Problem Type Effective Dates Data Source(s) Z34.80 care Supervision of other normal P lidia 12/07/2020 12:00:00 AM EDT eCW1 ([facility]) N91.2 48309810 Amenorrhea Problem 04/23/2020 12:00:00 AM ES T eCW1 ([facility]) Surgeries/Procedures Procedure Description Date Indications Data Source(s) Ultrasound scan - obstetric (procedure) 09/14/2020 02: 50:00 PM EDT [facility] Chlamydia/Neisseria (PCR) 09/01/2020 12:00:00 AM EDT [facility] Ultrasonography in first trimester (procedure) 021 03:12:00 PM EDT [facility] Urine culture (procedure) 08/03/2020 12:00:00 AM EDT [facility] Results ID Date Data Source [id number] 10/26/2020 09:05:[address] [facility] Name Value Range Interpretation Code Description Data Dolores rce(s) Supporting Document(s) Progress Note [facility] OFXUUo2bEpUHUfOb35/EWBqnAZZgo7YcTDofVIz0OBezQCQjU3MfDUV2nK1pZLO1GGtPUuBpHkUsCWU8 [facility] JjFfqODqCwVKEiOxkOWlNqOYnyTlufePAwXV1XeIZ9MJNaQ56wAAHyUEStK2NlTFE2PWm+Eg7TFIBfaT KxRQ5IGdfU9C4ms9zETl2fmZ/YBsXiD8UwmfcGqxPVL0yrn2XrcEEB19OLYdyXFPyucZCdkgnu5ce+dD dj+plJrszjXpwukYI2w8jz762PkESMtq+dwCTxZT4y /7/5V3ovFu6jg/cLIk3Z0YcBBu+su5rAlDi4ElUZnQ+B//yHet339v55u7EmLf1iFg3iOX5P43cJcoEU o/9F8rtiwtO2kHvsAj9ym9ajipydkW//rpXNESn19FKko+bwP+nHkFzygqLtw2V/cor6c1YnHAQg+3Fw N5qGGLnXNsQA9QBifuVecqcOMnMZSfV0Eo/MqpPOvA Uq63JiYbpURqykk7gzR4TaLWCZQuoQwoP2NIn2Av6QGfwN1PyVIJk8oI/Fv5XunJjkVV0Klx6zu9e3B0 SxYKhJaRShZ2sTRlwp6UOF4zGhsFjbhy09TH4IWLijn0NIX+E3kadHcPiP8I9uuie9jI4hRujSql2zoX /Td7BSZalc0H/DG1CmwVF66smZON9Y9Xn+54t6skpT x6gXaj3s2Jiv4RixXj2lfjrjpqsO32Eip5RO+ViRFuUwE2g7OWOq2aw42gn+Kc6U9S0JK+bHpIlvww84 d2De/dFlqu4kCoczG2E5Uk7JuujYFyyNBePi0SDoPXQ16BHv1wRm22aU17AXYkGjSbKAC52/93wuPwhM PpzkwyguRgXdLOyKuofzfBQnxciQZz+W0TSHzkui+J [file] ID Date Data Source [id number] 10/01/2020 05:53:00 PM EDT [facility] MATERNAL WEIGHT?: 287MOTHER'S ETHNIC GUERRERO GIN: CAUCASIANINSULIN DEPEND DIABETES: NOHX OF NEURAL TUBE DEFECTS: YESEDD DETERMINED BY: ULTRASOUNDPREV PREG. DOWN SYNDROME: YESNUMBER OF FETUSES: 1EST'D DATE OF DELIVERY: [id number] Name Value Range Interpretation Code Description Data Dolores rce(s) Supporting Document(s) Gestational age method [facility] Mother's race [facility] Gestational age Estimated 16.0 weeks Health system Body weight 287 lbs [facility] Insulin dependent diabetes mellitus [Presence] [facility] History of Neural tube defect Narrative YES [facility] History of Trisomy 21 Narrative YES [facility] Donated egg [Presence] [facility] Age NOT GIVEN [facility] Clinical information NO [facility] Delivery date Estimated 03/16/2021 [facility] Number of fetuses by US 1 [facility] Neural tube defect risk [Likelihood] in Fetus NOT CALCULATED [facility] Second trimester quad maternal screen [I nterpretation] in Serum or Plasma Narrative SEE NOTE [facility] ital Screen positive for open NTD.SEE NOTEA [...] and/or dimericinhibin A, as recommended by the [employer] College OfObstetrics and Gynecology. Service comment [facility] This is a screening test, not a diagnost ic test. Thisrisk assessment report is based in part on demographicdata provided by the ordering physician. Please notifythe laboratory promptly if any data are incorrect. Forassistance with recalculations, please call your [facility] laboratory. For assistance withinterpretation of these results, please contact yourcal [employer] genetic counselor or [phone]).Interpretive CutoffsScreen Positive for Open NTD: > or = 2.50 adjusted MOM > or = 1.90 adjusted MOM for Insulin- dependent diabetics > or = 4.00 adjusted MOM for twins > or = 3.50 adjusted MOM for Twins insulin-dependent diabetics > or = 4.50 adjusted MOM for tripletsSEE NOTEReviewed by: Milo Roque MDTHIS TEST WAS PERFORMED AT:[employer] [address]JYSCIM MERATI,MD Eujqy-5-Ssibqpxisvu [Multiple of the median] in Serum or Plasma Above high normal [facility] 3.56 - SCREEN POSITIVE (SEE BELOW) Abno rmal Flag: A Zjpdn-7-Bgpkmyabiho [Mass/volume] in Serum or Plasma 82.2 ng/mL [facility] ID Date Data Source [id number] 09/29/2020 02:32:00 PM EDT [facility] Patient Name: EBONY MINER : 1990 Sex: F Pt Unit #: [id number] Location:[facility] Provider: Visit Date/Time: 09/29/20 Primary Insurance: [facility] Secondary Insurance: Self Pay Intake Vital [...] Delivery Method room air 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 Otherwise no concerns today. 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 2. Quad screen today. Janis Norton Visit Date: 09/01/20 Patient is here [...] varicellaimmune; group and RhO+, antibody screennegative. H/H13.3/39.2, EJR078t; TSH2.10 IU/ml. UDAnegative. 1. at 12 weeks [...] rce(s) Supporting Document(s) ID Date Data Source [id number] 09/14/2020 04:31:00 PM EDT [facility] [address] [place] [address] [phone] NAME SEX PT STATUS ACCOUNT NUMBER EBONY MINER REG REF [id number] ORDERING PHYSICIAN LOCATION MEDICAL RECORD NO. Roberth Pavon MD [id number] ATTENDING PHYSICIAN DATE OF DATE OF EXAM/TIME [...] rce(s) Supporting Document(s) ID Date Data Source [id number] 09/09/2020 07:58:00 AM T [facility] LAST MENSTRUAL PERIOD unsureCollection T echnique: BRUSH-SPATULAPATIENT INFORMATION: PREVIOUS CYTOLOGY: NEGATIVEDATES AND RESULTS: 2017 negativePREVIOUS TREATMENT: NONEBody Site: CERVIX Name Value Range Interpretation Code Description Data Dolores rce(s) Supporting Document(s) Microscopic observation [Identifier] in Vaginal fluid by Cyt o stain.thin prep [facility] ID Date Data Source [id number] 09/02/2020 05:22:00 AM EDT [facility] CT/NG IS A QUALITATIVE IN VITRO [...] rce(s) Supporting Document(s) ID Date Data Source [id number] 09/03/2020 01:33:00 PM EDT [facility] CT/NG IS A QUALITATIVE IN VITRO [...] Trichomonas DNA Probe NOT DETECTED NOT DETECTED [facility] Gardnerella DNA Probe DETECTED NOT DETECTED Above high normal [facility] Increased levels of G. vaginalis may not be significantin the absence of signs and symptoms of bacterialvaginosis. 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 She is unsure of LMP so will go by dating US. She is 12 weeks today w [facility] SHYANN of 03/16/21. She would like all [...] HIV consent form. Denies any concerns today. 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 Patient's age 35 years or older as of estimated date of delivery: No 2. Thalassemia (Persian, Georgian, Mediterranean, or Background); MCV less than 80: No 3. Neural Tube Defect (Meningomyelocele, Spina Bifida, or Anencephaly): No 4. Congenital Heart Defect: No 5. Down Syndrome: Yes (had a son with down's) 6. Harris-Sachs (Ashkenazi Zoroastrianism, Cajun, St Helenian Martiniquais): No 7. Sandra Disease (Ashkenazi Zoroastrianism): No 8. Familial Dysautonomia (Ashkenazi Zoroastrianism): No 9. Sickle Cell Disease or Trait [...] (see comments) Initial Physical Examination Source: The [employer] Obstetricians and Gynec[employer] History History [...] lb 4 oz FEMALE 12 Epidural No [facility] 07/02/13 6 Spontaneous spontaneous 12/11/13 37 Spontaneous Vaginal 1 still vaginal 7 lb 14 oz MALE 12 None No [facility] 01/20/15 40 Spontaneous Vaginal 1 live - full term vaginal 8 lb 10 oz FEMALE 1 2 Spinal No [facility] 09/22/16 40 Spontaneous Vaginal 1 live - full term vaginal 8 lb 11 oz F EMALE 12 Epidural None No [facility] Delivery Date: 04/24/11 No notes to display [...] estimated date of delivery: No 2. Thalassemia (Persian, Georgian, Mediterranean, or Background); MCV less than 80: No 3. Neural Tube Defect (Meningomyelocele, Spina Bifida, or Anencephaly): No 4. Congenital Heart Defect: No 5. Down Syndrome: Yes (had a son with down's) 6. Harris-Sachs (Ashkenazi Zoroastrianism, Cajun, St Helenian Martiniquais): No 7. Sandra Disease (Ashkenazi Zoroastrianism): No 9. Sickle Cell Disease or Trait (): No 10. Hemophilia or other blood disorders: No 11. Muscular Dystrophy: No 12. Cystic Fibrosis: Yes (patient's brother ) 13. Wadena's Chorea: No 14. Mental Retardation/Autism: Yes ('s [...] varicellaimmune; group and RhO+, antibody screennegative. H/H13.3/39.2, XVR247p; TSH2.10 IU/ml. UDAnegative. 1. at 12 weeks [...] Denies polydipsia, Denies polyuria and Denies palpitations Zhoa/Lymph Denies easy bleeding, Denies easy bruising and Denies lymphadenopathy Aller/Immun Denies urticaria, Denies itchy eyes, Denies lip swelling, Denies seasonal rhinorrhea, Denies throat swelling and Denies wheezing Exam Const General: cooperative, healthy appearing, no acute distress, well developed and well groomed Nutritional Appearance: well nourished Orientation: alert, awake and oriented x3 [facility] Head: normal to inspection, normocephalic and [...] rce(s) Supporting Document(s) ID Date Data Source [id number] 08/04/2020 03:34:00 PM EDT [facility] [address] [place] [id number] [phone] NAME SEX PT STATUS ACCOUNT NUMBER EBONY MINER REG REF [id number] ORDERING PHYSICIAN LOCATION MEDICAL RECORD NO. Janis Norton MD [id number] ATTENDING PHYSICIAN DATE OF DATE OF EXAM/TIME Doctor Provided,No Family 1990 08[birth year]04/201511 TYPE / EXAM US OB Ultrasound <14 weeks REASON FOR EXAM dating with SHYANN FINDINGS: Gestation: Single [place]lerock-rump length: 15.9mm compatible with a 8 week [...] with heart rate of 174 bpm. 2. L[place]lerock-rump length compatible with a 8 week 0 day gestational age. 3. Small subchorionic hemorrhage. Reported By Mendoza Anderson MD on 08/04/201533 Signed By Mendoza Andesron MD on 08/04/201536 Date Time CC: Mendoza Anderson M.D.; No Family PHYS Provided Techn: TABSA Trans Dt/Tm: Trans by: DT Prt Dt/Tm: 23: Total DLP = 0.00 mGy-cm : Total Radiation Dose = 0.0000 mSv Lifetime Dose: 0 mSv Name Value Range Interpretation Code Description Data Dolores rce(s) Supporting Document(s) ID Date Data Source [id number] 08/03/2020 02:54:00 PM EDT [facility] @08/03/20 1435: UA W/ MICRO added. RFLXG = UMIC.Method of Collection:: Clean Catch 25,000 CFU/MLStaph spp. coag negProbable contaminants no senst done @08/03/20 1435: UA W/ MICRO added. RFLXG = UMIC.Method of Collection:: Clean Catch Name Value Range Interpretation Code Description Data Dolores rce(s) Supporting Document(s) Color of Urine [facility] Appearance of Urine CLEAR Abnormal (applies to non-nu meric results) [facility] pH of Urine by Test strip 5.5 5-8 [facility] Specific gravity of Urine by Refractometry 1.022 1.005-1.030 [facility] Leukocyte esterase [Presence] in Urine by Test strip NEGATIVE Above high normal [facility] @DO MICRO!!!! Nitrite [Presence] in Urine by Test strip NEGATIVE [facility] Protein [Presence] in Urine by Test strip NEGATIVE [facility] Glucose [Mass/volume] in Urine by Automated test strip NEGATIVE NEG ATIVE [facility] Ketones [Presence] in Urine by Test strip NEGATIVE [facility] Urobilinogen [Presence] in Urine 0.2-1 EU/dl [facility] Bilirubin.total [Presence] in Urine by Automated test strip NEGATIVE [facility] Erythrocytes [#/volume] in Urine by Test strip NEGATIVE NEGATIVE [facility] URINE MICROSCOPIC ADDED Microscopic Added [facility] @DONE WITH JW ID Date Data Source [id number] 08/04/2020 08:50:00 AM EDT [facility] @08/03/20 1435: UA W/ MICRO added. RFLXG = UMIC.Method of Collection:: Clean Catch 25,000 CFU/MLStaph spp. coag negProbable contaminants no senst done @08/03/20 1435: UA W/ MICRO added. RFLXG = UMIC.Method of Collection:: Clean Catch Name Value Range Interpretation Code Description Data Dolores rce(s) Supporting Document(s) ID Date Data Source [id number] 08/07/2020 06:25:00 PM EDT [facility] @08/03/20 1435: UA W/ MICRO added. RFLXG = UMIC.Method of Collection:: Clean Catch 25,000 CFU/MLStaph spp. coag negProbable contaminants no senst done @08/03/20 1435: UA W/ MICRO added. RFLXG = UMIC.Method of Collection:: Clean Catch Name Value Range Interpretation Code Description Data Dolores rce(s) Supporting Document(s) MEDMATCH See scanned report [facility] ID Date Data Source [id number] 08/03/2020 02:54:00 PM EDT [facility] @08/03/20 1435: UA W/ MICRO added. RFLXG = UMIC.Method of Collection:: Clean Catch 25,000 CFU/MLStaph spp. coag negProbable contaminants no senst done @08/03/20 1435: UA W/ MICRO added. RFLXG = UMIC.Method of Collection:: Clean Catch Name Value Range Interpretation Code Description Data Dolores rce(s) Supporting Document(s) Erythrocytes [#/volume] in Urine by Manual count 1-2 /hpf 0-5 [facility] Leukocytes [#/volume] in Urine by Manual count 2-4 /hpf 0-5 [facility] Cells [Type] in Urine sediment by Light microscopy [facility] Bacteria [Presence] in Urine sediment by Light microscopy NEGATIVE Above high normal [facility] ID Date Data Source [id number] 08/03/2020 02:26:00 PM EDT [facility] Patient Street Address: [address] [place] [address] [place] Zip Code: [id number] Address: [address] [place] [address] [place] Zip Code: [address] Name Value Range Interpretation Code Description Data Dolores rce(s) Supporting Document(s) Leukocytes [#/volume] in Blood by Automated count 10.9 10*3/uL 4.45-10.71 Above high normal [facility] Erythrocytes [#/volume] in Blood by Automated count 4.62 10*6/uL 4.20 -5.40 N [facility] Hemoglobin [Moles/volume] in Blood 13.3 g/dL 10.7-15.4 N [facility] Hematocrit [Volume Fraction] of Blood by Automated count 39.2 % 3 7-47 N [facility] Erythrocyte mean corpuscular volume [Ent itic volume] in Cord blood by Automated count 85 fL 80-96 N [facility] ital Erythrocyte mean corpuscular hemoglobin [Entitic mass] by Au tomated count 29 pg 27-31 N [facility] Erythrocyte mean corpuscular hemoglobin concentration [Mass/volume] in Cord blood 34 g/dL 33-37 N [facility] ital Erythrocyte distribution width [Entitic volume] by Automated count 12 % 11-15 N [facility] Platelets [#/volume] in Blood by Automated count 297 10*3/uL 130-472 N [facility] Platelet mean volume [Entitic volume] in Blood 9.7 fL 9.1-13.1 N [facility] Neutrophils/100 leukocytes in Blood by Automated count 75.0 % 41- 77 N [facility] Neutrophils [#/volume] in Blood by Automated count 8.2 U 1.7-7.6 Above high normal [facility] Lymphocytes/100 leukocytes in Blood by Automated count 18.7 % 14- 46 N [facility] Lymphocytes [#/volume] in Blood by Automated count 2.0 U 0.6-4.6 N [facility] Monocytes/100 leukocytes in Blood by Automated count 5.0 % 4-12 N [facility] Monocytes [#/volume] in Blood by Automated count 0.6 U 0.2-1.2 N [facility] Eosinophils/100 leukocytes in Blood by Automated count 0.6 % 0-7 N [facility] Eosinophils [#/volume] in Blood by Automated count 0.1 U 0.0-0.5 N [facility] Basophils/100 leukocytes in Blood by Automated count 0.5 % 0.4-1 .3 N [facility] Basophils [#/volume] in Blood by Automated count 0.1 U 0.0-0.2 N [facility] NUCLEATED RED BLOOD CELL 0 % [facility] NUCLEATED RED BLOOD CELL# 0 U [facility] Immature granulocytes [Presence] in Blood by Automated count 0-2 N [facility] Immature granulocytes [#/volume] in Blood by Automated count 0.0 U 0-0.1 N [facility] Manual Differential panel - Blood NO [facility] ID Date Data Source [id number] 08/03/2020 03:05:00 PM EDT [facility] Patient Street Address: [id number] [place] [address] City: [place]: [place] Zip Code: [id number] Patient [address] Address: [id number] [place] [address] City: [place]: [place] Zip Code: [address]Lwutczl Name Value Range Interpretation Code Description Data Dolores rce(s) Supporting Document(s) Choriogonadotropin.beta subunit [Units/volume] in Seru m or Plasma 44036 m[iU]/mL 1-3 Above high normal [facility] spital @Instrument will autodiluteApproximate G estational Age Approximate HCG Range 0.2-1 Week 5 - 50 1-2 Weeks 50 - 500 2-3 Weeks 100 - 5,000 3-4 Weeks 500 - 10,000 4-5 Weeks 1,000 - 50,000 5-6 Weeks 10,000 - 100,000 6-8 Weeks 15,000 - 100,000 2-3 Months 10,000 - 100,000 ID Date Data Source [id number] 08/05/2020 03:27:00 PM EDT [facility] Patient Street Address: [id number] [place] [address] City: [place]: [place] Zip Code: [id number] Patient [address] Address: [address] [place] [address] City: [place]: [place] Zip Code: [address]Hcuyrem Name Value Range Interpretation Code Description Data Dolores rce(s) Supporting Document(s) Lead [Moles/volume] in Blood <1 mcg/dL <5 L [facility] See Note 1Note 1This test was developed and its analytical performancecharacteristics have been determined by 20x200. It has not been cleared or approved by theA. This assay has been validated pursuant to the CLIAregulations and is used for clinical purposes.THIS TEST WAS PERFORMED AT:[address] [id number] MERATI,MD ID Date Data Source [id number] 08/08/2020 02:19:00 PM EDT [facility] Patient Street Address: [address] [address] [facility] City: [place]: [place] Zip Code: [id number] Patient Street Address: [address] [facility] City: [place]: [place] Zip Code: [address]Jxcsnbr Name Value Range Interpretation Code Description Data Dolores rce(s) Supporting Document(s) HIV (1&2) Screen, 4th Gen NON-REACTIVE NON-REACTIVE [facility] HIV-1 antigen and HIV-1/HIV-2 antibodies were [...] this purpose.For additional information please refer toht [email or web address](This link is being provided for informational/educational purposes only.)The performance of this assay has not been clinicallyvalidated in patients less than 2 years old.THIS TEST WAS PERFORMED AT:[address] [id number] MERATI,MD HIV 1 Ab [Presence] in Serum, Plasma or Blood by Rapid immunoassay [facility] HIV 1 RNA [Presence] in Serum or Plasma by Probe and target amplification method [facility] ital Treponema pallidum Ab [Presence] in Serum by Agglutination Nonreactive [facility] Rapid Plasma Reagin (RPR) [facility] Reagin Ab [Titer] in Serum by RPR [facility] Hepatitis B virus surface Ag [Presence] in Serum or Plasma b y Immunoassay NON-REACTIVE [facility] THIS TEST WAS PERFORMED AT:[facility] [address] [id number] MERATI,MD HBsAg Confirmation [facility] Rubella virus IgG Ab [Units/volume] in Serum or Plasma by Immunoassay 1.56 Index [facility] Index Interpretation - ---- <0.90 Not consistent with immunity 0.90-0.99 Equivocal > or = 1.00 Consistent with immunityThe presence of rubella IgG antibody suggestsimmunization or past or current infection withrubella virus.THIS TEST WAS PERFORMED AT:[address] [id number] MERATI,MD ID Date Data Source [id number] 08/03/2020 03:05:00 PM EDT [facility] Patient Street Address: [address] [place] [address] City: [place]: [place] Zip Code: [address] Patient [address] Address: [address] [facility] City: [place]: [place] Zip Code: [address]Gzdipyv Name Value Range Interpretation Code Description Data Dolores rce(s) Supporting Document(s) Thyrotropin [Units/volume] in Serum or Plasma by Detec tion limit <= 0.005 mIU/L 2.10 u[iU]/mL 0.35-5.50 N [facility] al ID Date Data Source [id number] 08/05/2020 03:27:00 PM EDT [facility] Patient Street Address: [address] [facility] City: [place]: [place] Zip Code: [address] Patient Street Address: [address] [facility] City: [place]: [place] Zip Code: [address]Gmyyqbx Name Value Range Interpretation Code Description Data Dolores rce(s) Supporting Document(s) Varicella zoster virus IgG Ab [Units/volume] in Serum by Immunoassay 250.70 index [facility] Index Interpretatio n --------- <135.00 Negative - [...] Antibody Immunity Screen, ACIF.THIS TEST WAS PERFORMED AT:[address] [id number] MERATI,MD ID Date Data Source [id number] 08/03/2020 03:21:00 PM EDT [facility] Name Value Range Interpretation Code Description Data Dolores rce(s) Supporting Document(s) Blood bank studies (set) Yes [facility] Blood Type [facility] Antibody Screen (PN) NEGATIVE [facility] ID Date Data Source [id number] 08/03/2020 01:13:00 PM EDT [facility] Patient Name: EBONY MINER : 1990 Sex: F Pt Unit #: [id number] Location:[facility] Provider: Visit Date/Time: 08/03/20 Primary Insurance: [facility] Secondary Insurance: Self Pay Intake Vital [...] Delivery Method room air 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 Denies any concerns today. 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 managed at [facility]. Second : Stillborn with Down syndrome at 37 weeks gestation 6-[address] [facility]. Third : Blighted ovum, D C [...] Code(s): N91.2 - Amenorrhea, unspecified SNOMED Code(s): 21555443 Category: Medical Plan: 1. Amenorrhea: UCG in [...] [place] [address] New Pt Limited Comp Patient Type New History Expanded Problem Focused Exam Problem Focused Medical Decision Making Straight Forward Diagnoses Encounter to establish care with new doctor Z76.89 Amenorrhea N91.2 Time Spent (min) 15 <Electronically signed by Janis Norton MD> 08/03/20 1812 Name Value Range Interpretation Code Description Data Dolores rce(s) Supporting Document(s) ID Date Data Source TSH 04/23/2020 12:00:00 AM EST eCW1 (Formerly [facility], 1928–1983) Name Value Range Interpretation Code Description Data Dolores rce(s) Supporting Document(s) 2.350 0.358-3.740 THYROID STIMULATING HORM ONE eCW1 ([facility]) ID Date Data Source FREE T4 04/23/2020 12:00:00 AM EST eCW1 (Formerly [facility], 1928–1983) Name Value Range Interpretation Code Description Data Dolores rce(s) Supporting Document(s) 1.02 0.76-1.46 FREE T4 W1 ([facility]) Procedure Social History Code Duration Value Status Description Data Source(s ) Smoking 12/31/2020 12:00:00 AM EST Former Smoker completed Former Smoker eCW1 ([facility]) Smoking 12/31/2020 12:00:00 AM EST Former Smoker completed Former Smoker eCW1 ([facility]) Smoking 12/07/2020 12:00:00 AM EDT Former Smoker completed Former Smoker eCW1 ([facility]) 08/03/2020 01:23:05 PM EDT Never smoker completed Never [facility] 08/03/2020 01:23:05 PM EDT Never smoker completed Never [facility] 08/03/2020 01:23:05 PM EDT Never smoker completed Never [facility] 08/03/2020 01:23:05 PM EDT Never smoker completed Never [facility] Smoking 08/03/2020 01:23:00 PM EDT Never smoker completed Never [facility] Smoking 04/23/2020 12:00:00 AM EST Former Smoker completed Former Smoker eCW1 ([facility]) Smoking 04/23/2020 12:00:00 AM EST Former Smoker completed Former Smoker eCW1 ([facility]) Vital Signs ID Date Data Source UNK Name Value Range Interpretation Code Description Data Source(s) Body mass index (BMI) [Ratio] 54.077 kg/m2 54.0 77 kg/m2 W1 ([facility]) Systolic blood pressure 128 mm[Hg] 128 mm[Hg] e CW1 ([facility]) Body weight 286.2 [lb_av] 286.2 [lb_av] eCW1 ([facility]) Body weight 129.82 kg 129.82 kg eCW1 ([facility], 1928[facility]) Body height 61 [in_i] 61 [in_i] eCW1 ([facility], 1928[facility]1983) Diastolic blood pressure 90 mm[Hg] 90 mm[Hg] eCW1 ([facility]) Body weight 295 [lb_av] 295 [lb_av] eCW1 ([facility]) Body height [in_i] eCW1 ([facility], [facility]) Body mass index (BMI) [Ratio] 55.73 kg/m2 55.73 kg/m2 eCW1 ([facility]) Heart rate 100 /min 100 /min eCW1 ([facility]) Respiratory rate 18 /min 18 /min eCW1 ([facility]) Body temperature 96.9 [degF] 96.9 [degF] eCW1 ( [facility]) Systolic blood pressure 128 mm[Hg] 128 mm[Hg] e CW1 ([facility]) Diastolic blood pressure 88 mm[Hg] 88 mm[Hg] eCW1 ([facility])
[2021-01-04] MEDS ORDERED: GUAI100L6 PO (16:47)
[2021-01-04] MEDS ORDERED: PRENTAB9 PO (16:47)
[2021-01-04] MEDS ORDERED: ACET500P3 PO (16:47)
--- NOTE | 2021-01-04 18:15 | ECGEPIP ---
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
== END 2021-01-04 16:24 | disposition home or self-care (01) ==
LOC: M ED 13:12
DX: O98.513 Other viral diseases complicating pregnancy, third trimester (principal); U07.1 COVID-19; J12.82 Pneumonia due to coronavirus disease 2019; R00.0 Tachycardia, unspecified; Z88.2 Allergy status to sulfonamides; Z79.899 Other long term (current) drug therapy; Z3A.29 29 weeks gestation of pregnancy

== ENCOUNTER 2021-01-04 16:11 | Inpatient (IN) | payer OTHER ==
[~2021-01-04] VITALS: Ht 154.9 cm; Wt 131.8 kg
[2021-01-04 16:35] VITALS: BP 123/68
[2021-01-04] MEDS ORDERED: ACET500P3 PO (16:47)
[2021-01-04] MEDS ORDERED: PRENTAB9 PO (16:47)
[2021-01-04] MEDS ORDERED: GUAI100L6 PO (16:47)
[2021-01-04] MEDS ORDERED: HOME MED LIST COMPLETE! XX SCH (16:50)
[2021-01-04] MEDS ORDERED: ENOXAPARIN 40MG/0.4ML SYRINGE (J1650 PER 10MG) SC STA (18:02)
[2021-01-04 18:19] LABS: HEMATOCRIT 37.5 % (36.0-47.0); HEMOGLOBIN 12.2 g/dl (12.0-15.5); MEAN CORPUSCULAR HEMOGLOBIN 27.6 pg (27.0-33.0); MEAN CORPUSCULAR HGB CONC 32.5 g/dl (32.0-36.5); MEAN CORPUSCULAR VOLUME 84.8 fl (80.0-96.0); PLATELET COUNT, AUTOMATED 186 10^3/uL (150-450); RED BLOOD COUNT 4.42 10^6/uL (4.00-5.40); WHITE BLOOD COUNT 8.4 10^3/uL (4.0-10.0)
[2021-01-04] MEDS: LR 1,000 ML IV SCH (18:20)
[2021-01-04] MEDS: ONDANSETRON 4MG/2ML VIAL IV PRN (18:40)
[2021-01-04 18:43] LABS: ALT/SGPT 15 U/L (12-78); BILIRUBIN,TOTAL 0.6 MG/DL (0.2-1.0); BLOOD UREA NITROGEN 6 MG/DL (7-18); CALCIUM LEVEL 8.4 MG/DL (8.5-10.1); CARBON DIOXIDE LEVEL 21 MEQ/L (21-32); CHLORIDE LEVEL 106 MEQ/L (98-107); CREATININE FOR GFR 0.56 MG/DL (0.55-1.30); GLOMERULAR FILTRATION RATE > 60.0 (>60); GLUCOSE, FASTING 100 MG/DL (70-100); LDH LACTATE DEHYDROGENASE 243 U/L (84-246); POTASSIUM SERUM 3.6 MEQ/L (3.5-5.1); SODIUM LEVEL 137 MEQ/L (136-145); TOTAL PROTEIN 5.5 GM/DL (6.4-8.2); URIC ACID 6.5 MG/DL (2.6-6.0)
[2021-01-04 19:11] VITALS: BP 131/75
[2021-01-04 19:22] LABS: TOTAL PROTEIN,RANDOM URINE 49.8 MG/DL (0.0-12.0)
[2021-01-04] MEDS: guaiFENesin DM LIQ 10ML UD PO PRN (19:46)
[2021-01-04 21:30] VITALS: BP 129/85
[2021-01-04] MEDS: CALCIUM CARBONATE 500 MG CHEW U/D PO PRN (21:33)
--- NOTE | 2021-01-04 23:32 | HPEPDOC ---
Obstetrical History & Physical General Date of Admission History of Present Illness 30yo at 29+6 weeks EGA. Presented to ED today with respiratory symptoms (cough, mild SOB, upper respiratory congestion), malaise, and history of +COVID since 12/31/20. No fever/chills/ELLIOTT/cp. In ED, patient's O2 sat on RA while standing/walking was 93-94%. >95% on RA while at rest. CXR during ER workup significant for e/o COVID PNA (see report). Pt is not vaccinated for COVID. +FM. No VB/LOF/ctx. PMH: Gastritis/GERD, morbid obesity (BMI 55). 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 Fatigued. H: tachy, no m/g/r L: diminished lung sounds (right side) Abd: soft, nt, nd, uterine fundal ht c/w/d and nontender Ext: no c/c/e EFM: Cat I [place]: no ctxs A/P: 30yo at 29+6 weeks with +COVID pneumonia (favor right side). Moderate distress/severity. -Admit for OBS and continuous monitoring -Start Lovenox 40mg SC (consider BID dosing based on patient's BMI) and SCD's for VTE prophylaxis -Pre - e panel ordered based on BP readings; GHTN, but does not meet criteria for pre-e -Medicine consult in AM or sooner PRN; consider monoclonal Ab therapy and/or corticosteroids. Rupa Anne, DO Past Medical History Allergies Coded Allergies: Sulfa (Sulfonamide Antibiotics) (Verified Allergy, Intermediate, rash, 01/04/21) rash,hives Mosquito (Verified Allergy, Mild, INSECT BITES = RASH, 05/02/18) Medications Scheduled No.137/Iron/Folic Acd ( Vitamin Tablet) 1 Each Tablet, 1 TAB PO DAILY Scheduled PRN Acetaminophen (Tylenol Extra Strength) 500 Mg Powd.pack, 2 MG PO Q6HP PRN for MILD DISCOMFORT Guaifenesin (Guaifenesin) 100 Mg/5 Ml Liquid, 20 ML PO Q6HP PRN for COUGH Physical Examination Vital Signs/I&O Vital Signs Date Time Temp Pulse Resp B/P (MAP) Pulse Ox O2 Delivery O2 Flow Rate FiO2 01/04/21 21:41 112 01/04/21 21:30 98.0 129/85 (100) 01/04/21 19:37 96 01/04/21 19:32 24 Room Air Laboratory Data 24H LABS Laboratory Tests 2 01/04/21 18:07: Nucleated Red Blood Cells % (auto) 0.0, Anion Gap 10, Glomerular Filtration Rate > 60.0, Uric Acid 6.5H, Calcium Level 8.4L, Total Bilirubin 0.6, Aspartate Amino Transf (AST/SGOT) 25, Alanine Aminotransferase (ALT/SGPT) 15, Alkaline Phosphatase 120H, Lactate Dehydrogenase 243, Total Protein 5.5L, Albumin 2.0L, Albumin/Globulin Ratio 0.6L 01/04/21 18:29: Urine Random Creatinine 219.0, Urine Random Total Protein 49.8H CBC/BMP Laboratory Tests 01/04/21 18:07 Assessment/Plan Assessment ALBER ANNE DO Jan 04, 2021 23:32
[2021-01-05] VITALS (17 sets, daily range): BP systolic 103–143; BP diastolic 53–90
[2021-01-05] MEDS: guaiFENesin DM LIQ 10ML UD PO PRN ×2 (01:37→07:57)
[2021-01-05] MEDS: LR 1,000 ML IV SCH ×3 (01:41→19:42)
[2021-01-05] MEDS: ONDANSETRON 4MG/2ML VIAL IV PRN (07:56)
--- OUTSIDE RECORDS SUMMARY | 2021-01-05 08:49 | CCD ---
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 If you continue you may have access to information: Regarding HIV / AIDS; Provided by facilities licensed or operated by the [facility] Office of Mental Health; or Provided by the [facility] Office for People With Developmental Disabilities. If such information is present, then the following [facility] mandated warning applies: This information has [...] law may result in a fine or long-term sentence or both. A general authorization for the release of medical or other information is NOT sufficient authorization for further disc losure. Allergies and Adverse Reactions Type Description Substance Reaction Status Data Source(s ) Drug allergy Sulfa (Sulfonamide Antibiotics) Sulfa (Sulfonami de Antibiotics) Rash [facility] Family History Family Member Name Family Member Gender Family Member Status Date o f Status Description Data Source(s) Unknown Condition [facility] Unknown Condition [facility] Unknown Condition [facility] Unknown Condition [facility] Unknown Condition [facility] Unknown Condition [facility] Unknown Condition [facility] Unknown Condition [facility] Unknown Male Problem MEDENT ([facility]) Unknown Unknown Problem MEDENT ([facility]) Encounters Encounter Providers Location Date Indications Data Source(s ) Outpatient [address] [facility] [place] [address] 12/31/2020 12:00:00 AM EST eCW1 ([facility]) Unknown [address] [facility] [place] [address] 12/31/2020 12:00:00 AM EST eCW1 ([facility]) Unknown [address] [facility] [place] [address] 12/29/2020 12:00:00 AM EST eCW1 ([facility]) ( NEWOB) [facility] New OB Visit [address] [place] [address] 12/07/2020 12:00:00 AM EDT eCW1 ([facility]) Outpatient 10/27/2020 01:00:00 PM EDT anatomy [facility] anatomy Outpatient Attender: ERNA Fraser jose: Erna Christiansonr: JANIS NORTON [id number] 10/21/2020 12:00:00 AM EDT - 10/21/2020 02:53:55 PM EDT [facility] Outpatient Attender: EDWARD FINEReferrer: JANIS NORTON 10/21/2020 12:00:00 AM [facility] Outpatient Attender: Janis Norton MD 09/29/2020 0 3:07:00 PM EDT Z82.79,O09.293,Z80.8 [facility] Z82.79,O09.293,Z80.8 Outpatient Attender: Janis Norton MDReferrer: No Family Doctor Provided 09/29/2020 02:25:00 PM EDT - 09/29/2020 02:55:00 PM EDT [facility] Outpatient Attender: Roberth Pavon MD 09/14/2020 02:20:00 PM EDT F/U SUBCORE [facility] F/U SUBCORE Outpatient Attender: Janis Norton MD 09/01/2020 05:47:0 0 PM EDT [facility] Outpatient Attender: Janis Norton MDReferrer: No Family Doctor Provided 09/01/2020 02:47:00 PM EDT - 09/01/2020 04:09:00 PM EDT [facility] Outpatient Attender: Janis Norton MD 08/04/2020 0 2:06:00 PM EDT DATING, ANATOMY? [facility] DATING, ANATOMY? Outpatient Attender: Janis Norton MD 08/03/2020 01:57:0 0 PM EDT [facility] Outpatient Attender: Janis Norton MDReferrer: No Family Doctor Provided 08/03/2020 01:51:00 PM EDT - 08/03/2020 01:58:00 PM EDT [facility] Outpatient [address] [facility] [place] [address] 04/23/2020 12:00:00 AM EST eCW1 ([facility]) [place] [address] [facility] [place] [address] 04/23/2020 12:00:00 AM EST eCW1 ([facility]) [place] [address] [facility] [place] [address] 01/26/2020 12:00:00 AM EST eCW1 ([facility]) Immunizations Vaccine Date Status Description Data Source(s) Tdap 12/24/2020 08:52:00 AM EDT completed e CW1 ([facility]) Tdap 12/24/2020 08:52:00 AM EDT completed e CW1 ([facility]) Tdap 12/24/2020 08:52:00 AM EDT completed e CW1 ([facility]) New in 2011. IIV4 12/24/2020 08:51:00 AM EDT completed eCW1 ([facility]) New in 2011. IIV4 12/24/2020 08:51:00 AM EDT completed eCW1 ([facility]) New in 2011. IIV4 12/24/2020 08:51:00 AM EDT completed eCW1 ([facility]) Medications Medication Brand Name Start Date Product [...] 09/08/2020 05:10:51 PM EDT [address] [facility] Promethazine Hydrochloride 12.5 MG Oral Tablet Promethazine 08/11/2020 01:07:38 PM EDT 12.5 MG active [facility] 12.5 mg 08/11/2020 12:00:00 AM EDT tablet 90 TAKE ONE TABLET BY MOUTH THREE TIMES A DAY TAKE ONE TABLET BY MOUTH THREE TIMES A DAY SOLD: 08/11/2020 [facility] Ggy74-Ag-Ue4-Wfr-Nhq-Jmgb Oil 08/03/2020 01:17:07 PM EDT active [facility] Alprazolam 0.25 MG Oral Tablet Alprazolam (Xanax) 0.25 MG tablet Alprazolam (Xanax) 0.25 MG tablet 09/28/2016 12:25:00 PM [address]T [address] [facility] 24 HR Bupropion Hydrochloride 300 MG Ext ended Release Oral Tablet Bupropion Hcl (Wellbutrin Xl) 300 MG tablet extended release 24 hr Bupropion Hcl (Wellbutrin Xl) 300 MG tablet extended release 24 hr 09/28/2016 10:32:00 AM EDT [address] [facility] Ibuprofen 800 MG Oral Tablet Ibuprofen 09/24/2016 09:24:14 AM EDT [address] [facility] Ranitidine 150 MG Oral Tablet Ranitidine Hcl (Zantac) 150 MG tablet Ranitidine Hcl (Zantac) 150 MG tablet 09/07/2016 02:44:00 PM EDT 150 MG completed [facility] Pnv 8-Hngj-Iy-X43-Gnnarpo-C6 (Mteryti Fo lic 5 Combo Pack) 1 EACH tablets, sequential 03/10/2016 03:39:00 PM EST 1 EACH compl eted [facility] Insurance Providers Payer name Policy type / Coverage type Policy ID Covered constitution party ID Covered constitution party's relationship to burk Policy Burk Plan Information [facility] I [id number] Self [id number] [facility] I [id number] Self [id number] MEDICAID M [id number] Self [id number] [employer](MCAID) P [id number] S [id number] [facility] Health Maintenance Organization (HMO) [id number] Self [id number] [facility] Health Maintenance Organization (O) [id number] Self [id number] [facility] Health Maintenance Organization (HMO) [id number] Self [id number] [facility] Health Maintenance Organization (HMO) [id number] Self [id number] [facility] Health Maintenance Organization (HMO) [id number] Self [id number] [facility] Health Maintenance Organization (HMO) [id number] Self [id number] [facility] I [id number] Self [id number] [facility] Health Maintenance Organization (HMO) [id number] Self [facility] COMMUNITY PLAN MCDO [id number] SP [id number] [employer](MCAID) P [id number] S [id number] [employer](MCAID) P UNAVAILABLE S UNAVAILABLE [employer](MCAID) P [id number] S [id number] SELF PAY UNAVAILABLE UNAVAILA BLE BLUE CROSS [employer]ARZA PLAN [id number] SP [id number] HMO BLUE [id number] SP [id number] MEDICAID [id number] SP [id number] UN COMMUNITY PLAN [facility] [id number] SP [id number] [facility] COMMUNITY PLAN [facility] [id number] SP [id number] Problems, Conditions, and Diagnoses Code Display Name Description Problem Type Effective Dates Data Source(s) Z34.80 care Supervision of other normal P lidia 12/07/2020 12:00:00 AM EDT eCW1 ([facility]) N91.2 [id number] Amenorrhea Problem 04/23/2020 12:00:00 AM ES T eCW1 ([facility]) Surgeries/Procedures Procedure Description Date Indications Data Source(s) Ultrasound scan - obstetric (procedure) 09/14/2020 02: 50:00 PM [facility] Chlamydia/Neisseria (PCR) 09/01/2020 12:00:00 AM [facility] Ultrasonography in first trimester (procedure) [facility] 08/03/2020 12:00:00 AM [facility] Results ID Date Data Source GATS (NEGATIVE STREP SCREEN) 12/31/2020 12:00:00 AM EST eCW1 ([facility]) Name Value Range Interpretation Code Description Data Dolores rce(s) Supporting Document(s) FULL REPORT IN LAB NOTES (eCW and Medent). GATS CULTURE (NEG STREP SCR) eCW1 ([facility]) ID Date Data Source HIEU COVID AG (Point of Care) 12/31/2020 12:00:00 AM EST eC W1 ([facility]) Name Value Range Interpretation Code Description Data Dolores rce(s) Supporting Document(s) POSITIVE NEGATIVE HIEU COVID ANTIGEN eCW1 ([facility]) ID Date Data Source [id number] 10/26/2020 09:05:31 AM EDT [facility] Name Value Range Interpretation Code Description Data Dolores rce(s) Supporting Document(s) Progress Note [facility] KNELPq0jFwCIUbQl47/DGQftZPFhm9MfONnqWZs1KBirTXYnM0YrUTD4bN2yDKT3ILgZPzAuViCbOEC5 lbm FkKqjLTqFzBRRlNrmWQmDfVLzaUwfdtRQjQI3FdFW0ZBZuX48nNLVuIYPbY7FxKPF5MNv+Oa0ZMGPynC JgNQ5CWzpO4Y6aj8mYZy6nlO/QNtXdN7SmsotDukAGD6rim0FvwGJL56XLLumNZSmbySMwgitu8cz+dD dj+qoNzhdnWtsgjGB2g7lp153QnDJGjz+sbXQtFS7i /7/6P5voRk4ib/kMKy9G7BzIGs+aa9qMySf5UzTIzX+B//jLfq420a30l9IkQs6gTb0zFU0G68mZquVA o/7G5vgukyQ9tUlyRq9hy9zlkssfaX//upYDRRl07DPcr+bwP+mDmCputnBpp4Q/yhv8a1IlPQNw+3Fw K6mGFQiJIsFH2ESgsbQomzoLOnZUQfE0Tc/MqpPOvA Vx07BqCxmICqizu0mhW4ZtQEPLLimDgzF2GRo2Vb2XFpoU4ZiAYPb4aN/Ut3JktWdeAE9Xzs0pz7g0U1 IvXLkItXFvE3iEAgxz8ACJ3yMrnUpoeh84NM5YCAreq9FHB+V4iomFcYbM0E5cdtj9iI1eZodCnw3nlM /Tj8IGLzsx9M/UE9ZdzJI87bpEYX8F5Zv+67w0tewC f2qQjp8q5Pkz9RtoAh6rgtdapuzF98Nqo8UO+XkDYoEhX4g8DRQd1bl81yg+Vn9D4T2VX+hTtTjxkq18 d2De/dMpmf6wRbsqN6L7Su7CoztRVhhBPeTo2WGuUFP90HTy6vUu48oA13COLpSdEiLVY27/93wuPwhM PpzkwyguRgXdLOyKuofzfBQnxciQZz+R6XIYyolk+J [file] ID Date Data Source [id number] 10/01/2020 05:53:00 PM EDT [facility] MATERNAL WEIGHT?: 287MOTHER'S ETHNIC GUERRERO GIN: CAUCASIANINSULIN DEPEND DIABETES: NOHX OF NEURAL TUBE DEFECTS: YESEDD DETERMINED BY: ULTRASOUNDPREV PREG. DOWN SYNDROME: YESNUMBER OF FETUSES: 1EST'D DATE OF DELIVERY: [id number] Name Value Range Interpretation Code Description Data Dolores rce(s) Supporting Document(s) Gestational age method [facility] Mother's race [facility] Gestational age Estimated 16.0 weeks [facility] Body weight 287 lbs [facility] Insulin dependent diabetes mellitus [Presence] [facility] History of Neural tube defect Narrative YES [facility] History of Trisomy 21 Narrative YES [facility] Donated egg [Presence] [facility] Age NOT GIVEN [facility] Clinical information NO [facility] Delivery date Estimated 03/16/2021 [facility] Number of fetuses by US 1 [facility] Neural tube defect risk [Likelihood] in Fetus NOT CALCULATED [facility] Second trimester quad maternal screen [I nterpretation] in Serum or Plasma Narrative SEE NOTE [facility] ital Screen positive for open NTD.SEE NOTEA [...] and/or dimericinhibin A, as recommended by the [employer] College OfObstetrics and Gynecology. Service comment [facility] This is a screening test, not a diagnost ic test. Thisrisk assessment report is based in part on demographicdata provided by the ordering physician. Please notifythe laboratory promptly if any data are incorrect. Forassistance with recalculations, please call your local[facility] laboratory. For assistance withinterpretation of these results, please contact yourcal [employer] genetic counselor or [phone]).Interpretive CutoffsScreen Positive for Open NTD: > or = 2.50 adjusted MOM > or = 1.90 adjusted MOM for Insulin- dependent diabetics > or = 4.00 adjusted MOM for twins > or = 3.50 adjusted MOM for Twins insulin-dependent diabetics > or = 4.50 adjusted MOM for tripletsSEE NOTEReviewed by: Milo Roque MDTHIS TEST WAS PERFORMED AT:[facility] [address]VDVNUP MERATI,MD Swvpe-2-Fhtkzavrifi [Multiple of the median] in Serum or Plasma Above high normal [facility] 3.56 - SCREEN POSITIVE (SEE BELOW) Abno rmal Flag: A Ffkdm-3-Htrfrdrmleb [Mass/volume] in Serum or Plasma 82.2 ng/mL [facility] ID Date Data Source [id number] 09/29/2020 02:32:00 PM EDT [facility] Patient Name: EBONY MINER : 1990 Sex: F Pt Unit #: [id number] Location:[facility] Provider: Visit Date/Time: 09/29/20 Primary Insurance: [facility] Secondary Insurance: Self Pay Intake Vital Signs [...] Delivery Method room air 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 Otherwise no concerns today. 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 H/H13.3/39.2, OWG373a; TSH2.10 IU/ml. UDAnegative. 1. at 12 weeks gestation. Past history of demise at term. 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 2. Repeat OB sonogram to assess subchorionic bleed. 3. Labs: Pap, GC/chlamydia, PCR swab vagina. 4. Desires genetic screening, because of previous history of demise and Down's, and also patient's history of CF carrier. Montezfox Norton Assessment Plan Assessment Plan (1) : [...] rce(s) Supporting Document(s) ID Date Data Source [id number] 09/14/2020 04:31:00 PM EDT [facility] [address] [place] [address] [phone] NAME SEX PT STATUS ACCOUNT NUMBER EBONY MINER REG REF [id number] ORDERING PHYSICIAN LOCATION MEDICAL RECORD NO. Roberth Pavon MD [id number] ATTENDING PHYSICIAN DATE OF DATE OF EXAM/TIME [...] 09/14/201630 Signed By Jonathan Toledo DO on 09/14/20 1633 Date Time CC: Jonathan Dower, DO; No Family PHYS Provided Techn: TABSA Trans Dt/Tm: Trans by: DT Prt Dt/Tm: : Total DLP = 0.00 mGy-cm : Total Radiation Dose = 0.0000 mSv Lifetime Dose: 0 mSv Name Value Range Interpretation Code Description Data Dolores rce(s) Supporting Document(s) ID Date Data Source [id number] 09/09/2020 07:58:00 AM [facility] LAST MENSTRUAL PERIOD unsureCollection T echnique: BRUSH-SPATULAPATIENT INFORMATION: PREVIOUS CYTOLOGY: NEGATIVEDATES AND RESULTS: 2017 negativePREVIOUS TREATMENT: NONEBody Site: CERVIX Name Value Range Interpretation Code Description Data Dolores rce(s) Supporting Document(s) Microscopic observation [Identifier] in Vaginal fluid by Cyt o stain.thin prep [facility] ID Date Data Source [id number] 09/02/2020 05:22:00 AM [facility] CT/NG IS A QUALITATIVE IN VITRO REAL-JANAY [...] rce(s) Supporting Document(s) ID Date Data Source [id number] 09/03/2020 01:33:00 PM EDT [facility] CT/NG IS A QUALITATIVE IN VITRO [...] Trichomonas DNA Probe NOT DETECTED NOT DETECTED [facility] Gardnerella DNA Probe DETECTED NOT DETECTED Above high normal [facility] Increased levels of G. vaginalis may not be significantin the absence of signs and symptoms of bacterialvaginosis. 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 She is unsure of LMP so will go by dating US. She is 12 weeks today w [facility] SHYANN of 03/16/21. She would like all [...] HIV consent form. Denies any concerns today. 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 Patient's age 35 years or older as of estimated date of delivery: No 2. Thalassemia (Argentine, South African, Mediterranean, or Background); MCV less than 80: No 3. Neural Tube Defect (Meningomyelocele, Spina Bifida, or Anencephaly): No 4. Congenital Heart Defect: No 5. Down Syndrome: Yes (had a son with down's) 6. Harris-Sachs (Ashkenazi Scientologist, Cajun, Hungarian Peruvian): No 7. Sandra Disease (Ashkenazi Scientologist): No 8. Familial Dysautonomia (Ashkenazi Scientologist): No 9. Sickle Cell Disease or Trait (): No 10. Hemophilia or other blood disorders: No 11. Muscular Dystrophy: No 12. Cystic Fibrosis: Yes (patient's brother ) 13. [place]'s Chorea: No 14. Mental Retardation/Autism: Yes ('s [...] (see comments) Initial Physical Examination Source: The [employer]stetricians [employer] Gynec[employer] History History [...] lb 4 oz FEMALE 12 Epidural No [facility] 07/02/13 6 Spontaneous spontaneous 12/11/13 37 Spontaneous Vaginal 1 still vaginal 7 lb 14 oz MALE 12 None No [facility] 01/20/15 40 Spontaneous Vaginal 1 live - full term vaginal 8 lb 10 oz FEMALE 1 2 Spinal No [facility] 09/22/16 40 Spontaneous Vaginal 1 live - full term vaginal 8 lb 11 oz F EMALE 12 Epidural None No [facility] Delivery Date: 04/24/11 No notes to [...] estimated date of delivery: No 2. Thalassemia (Argentine, South African, Mediterranean, or Background); MCV less than 80: No 3. Neural Tube Defect (Meningomyelocele, Spina Bifida, or Anencephaly): No 4. Congenital Heart Defect: No 5. Down Syndrome: Yes (had a son with down's) 6. Harris-Sachs (Ashkenazi Scientologist, Cajun, Hungarian Peruvian): No 7. Sandra Disease (Ashkenazi Scientologist): No 9. Sickle Cell Disease or Trait (): No 10. Hemophilia or other blood disorders: No 11. Muscular Dystrophy: No 12. Cystic Fibrosis: Yes (patient's brother ) 13. [place]'s Chorea: No 14. Mental Retardation/Autism: Yes ('s [...] varicellaimmune; group and RhO+, antibody screennegative. H/H13.3/39.2, ISJ509e; TSH2.10 IU/ml. UDAnegative. 1. at 12 weeks [...] nourished Orientation: alert, awake and oriented x3 [facility] Head: normal to inspection, normocephalic and [...] rce(s) Supporting Document(s) ID Date Data Source [id number] 08/04/2020 03:34:00 PM EDT [facility] [address] [id number] [phone] NAME SEX PT STATUS ACCOUNT NUMBER EBONY MINER REG REF [id number] ORDERING PHYSICIAN LOCATION MEDICAL RECORD NO. Janis Norton MD [id number] ATTENDING PHYSICIAN DATE OF DATE OF EXAM/TIME Doctor Provided,No Family 1990 08/04/20 / 1512 TYPE / EXAM US OB Ultrasound <14 weeks REASON FOR EXAM dating with SHYANN FINDINGS: Gestation: Single [place]-rump length: 15.9mm compatible with a 8 week [...] with heart rate of 174 bpm. 2. [place]-rump length compatible with a 8 week 0 [...] rce(s) Supporting Document(s) ID Date Data Source [id number] 08/03/2020 02:54:00 PM EDT [facility] @08/03/20 1435: UA W/ MICRO added. RFLXG = UMIC.Method of Collection:: Clean Catch 25,000 CFU/MLStaph spp. coag negProbable contaminants no senst done @08/03/20 1435: UA W/ MICRO added. RFLXG = UMIC.Method of Collection:: Clean Catch Name Value Range Interpretation Code Description Data Dolores rce(s) Supporting Document(s) Color of Urine [facility] Appearance of Urine CLEAR Abnormal (applies to non-nu meric results) [facility] pH of Urine by Test strip 5.5 5-8 [facility] Specific gravity of Urine by Refractometry 1.022 1.005-1.030 [facility] Leukocyte esterase [Presence] in Urine by Test strip NEGATIVE Above high normal [facility] @DO MICRO!!!! Nitrite [Presence] in Urine by Test strip NEGATIVE [facility] Protein [Presence] in Urine by Test strip NEGATIVE [facility] Glucose [Mass/volume] in Urine by Automated test strip NEGATIVE NEG ATIVE [facility] Ketones [Presence] in Urine by Test strip NEGATIVE [facility] Urobilinogen [Presence] in Urine 0.2-1 EU/dl [facility] Bilirubin.total [Presence] in Urine by Automated test strip NEGATIVE [facility] Erythrocytes [#/volume] in Urine by Test strip NEGATIVE NEGATIVE [facility] URINE MICROSCOPIC ADDED Microscopic Added [facility] @DONE WITH JW ID Date Data Source [id number] 08/04/2020 08:50:00 AM EDT [facility] @08/03/20 1435: UA W/ MICRO added. RFLXG = UMIC.Method of Collection:: Clean Catch 25,000 CFU/MLStaph spp. coag negProbable contaminants no senst done @08/03/20 1435: UA W/ MICRO added. RFLXG = UMIC.Method of Collection:: Clean Catch Name Value Range Interpretation Code Description Data Dolores rce(s) Supporting Document(s) ID Date Data Source [id number] 08/07/2020 06:25:00 PM EDT [facility] @08/03/20 1435: UA W/ MICRO added. RFLXG = UMIC.Method of Collection:: Clean Catch 25,000 CFU/MLStaph spp. coag negProbable contaminants no senst done @08/03/20 1435: UA W/ MICRO added. RFLXG = UMIC.Method of Collection:: Clean Catch Name Value Range Interpretation Code Description Data Dolores rce(s) Supporting Document(s) MEDMATCH See scanned report [facility] ID Date Data Source [id number] 08/03/2020 02:54:00 PM EDT [facility] @08/03/20 1435: UA W/ MICRO added. RFLXG = UMIC.Method of Collection:: Clean Catch 25,000 CFU/MLStaph spp. coag negProbable contaminants no senst done @08/03/20 1435: UA W/ MICRO added. RFLXG = UMIC.Method of Collection:: Clean Catch Name Value Range Interpretation Code Description Data Dolores rce(s) Supporting Document(s) Erythrocytes [#/volume] in Urine by Manual count 1-2 /hpf 0-5 [facility] Leukocytes [#/volume] in Urine by Manual count 2-4 /hpf 0-5 [facility] Cells [Type] in Urine sediment by Light microscopy [facility] Bacteria [Presence] in Urine sediment by Light microscopy NEGATIVE Above high normal [facility] ID Date Data Source [id number] 08/03/2020 02:26:00 PM EDT [facility] Patient Street Address: [address] [facility] [place]: [place] Zip Code: [address] Patient Street Address: [id number] [place] [address] [place]: [place] Zip Code: [address]Gvegrnw Name Value Range Interpretation Code Description Data Dolores rce(s) Supporting Document(s) Leukocytes [#/volume] in Blood by Automated count 10.9 10*3/uL 4.45-10.71 Above high normal [facility] Erythrocytes [#/volume] in Blood by Automated count 4.62 10*6/uL 4.20 -5.40 N [facility] Hemoglobin [Moles/volume] in Blood 13.3 g/dL 10.7-15.4 N [facility] Hematocrit [Volume Fraction] of Blood by Automated count 39.2 % 3 7-47 N [facility] Erythrocyte mean corpuscular volume [Ent itic volume] in Cord blood by Automated count 85 fL 80-96 N [facility] ital Erythrocyte mean corpuscular hemoglobin [Entitic mass] by Au tomated count 29 pg 27-31 N [facility] Erythrocyte mean corpuscular hemoglobin concentration [Mass/volume] in Cord blood 34 g/dL 33-37 N [facility] ital Erythrocyte distribution width [Entitic volume] by Automated count 12 % 11-15 N [facility] Platelets [#/volume] in Blood by Automated count 297 10*3/uL 130-472 N [facility] Platelet mean volume [Entitic volume] in Blood 9.7 fL 9.1-13.1 N [facility] Neutrophils/100 leukocytes in Blood by Automated count 75.0 % 41- 77 N [facility] Neutrophils [#/volume] in Blood by Automated count 8.2 U 1.7-7.6 Above high normal [facility] Lymphocytes/100 leukocytes in Blood by Automated count 18.7 % 14- 46 N [facility] Lymphocytes [#/volume] in Blood by Automated count 2.0 U 0.6-4.6 N [facility] Monocytes/100 leukocytes in Blood by Automated count 5.0 % 4-12 N [facility] Monocytes [#/volume] in Blood by Automated count 0.6 U 0.2-1.2 N [facility] Eosinophils/100 leukocytes in Blood by Automated count 0.6 % 0-7 N [facility] Eosinophils [#/volume] in Blood by Automated count 0.1 U 0.0-0.5 N [facility] Basophils/100 leukocytes in Blood by Automated count 0.5 % 0.4-1 .3 N [facility] Basophils [#/volume] in Blood by Automated count 0.1 U 0.0-0.2 N [facility] NUCLEATED RED BLOOD CELL 0 % [facility] NUCLEATED RED BLOOD CELL# 0 U [facility] Immature granulocytes [Presence] in Blood by Automated count 0-2 N [facility] Immature granulocytes [#/volume] in Blood by Automated count 0.0 U 0-0.1 N [facility] Manual Differential panel - Blood NO [facility] ID Date Data Source [id number] 08/03/2020 03:05:00 PM EDT [facility] Patient [address] Address: [address] [place] [address] [place] Zip Code: [address]M[address]g Patient Street Address: [address] [facility] [place]: [place] Zip Code: [address]Ktqcoox Name Value Range Interpretation Code Description Data Dolores rce(s) Supporting Document(s) Choriogonadotropin.beta subunit [Units/volume] in Seru m [place] Plasma 99197 m[iU]/mL 1-3 Above high normal [facility] spital @Instrument will autodiluteApproximate G estational Age Approximate HCG Range 0.2-1 Week 5 - 50 1-2 Weeks 50 - 500 2-3 Weeks 100 - 5,000 3-4 Weeks 500 - 10,000 4-5 Weeks 1,000 - 50,000 5-6 Weeks 10,000 - 100,000 6-8 Weeks 15,000 - 100,000 2-3 Months 10,000 - 100,000 ID Date Data Source [id number] 08/05/2020 03:27:00 PM EDT [facility] [address] Address: [address] [facility] [place] Zip Code: [address] Patient [address] Address: [address] [facility] [place]: [place] Zip Code: [address]Taduazi Name Value Range Interpretation Code Description Data Dolores rce(s) Supporting Document(s) Lead [Moles/volume] in Blood <1 mcg/dL <5 L [facility] See Note 1Note 1This test was developed and its analytical performancecharacteristics have been determined by [employer]. It has not been cleared or approved by theA. This assay has been validated pursuant to the CLIAregulations and is used for clinical purposes.THIS TEST WAS PERFORMED AT:[facility] [id number] MERATI,MD ID Date Data Source [id number] 08/08/2020 02:19:00 PM EDT [facility] [address] Address: [address] [facility] [place]: [place] Zip Code: [address] Patient [address] Address: [address] [facility] [place]: [place] Zip Code: [address]Rrkszfu Name Value Range Interpretation Code Description Data Dolores rce(s) Supporting Document(s) HIV (1&2) Screen, 4th Gen NON-REACTIVE NON-REACTIVE [facility] HIV-1 antigen and HIV-1/HIV-2 antibodies were [...] this purpose.For additional information please refer toht [email or web address](This link is being provided for informational/educational purposes only.)The performance of this assay has not been clinicallyvalidated in patients less than 2 years old.THIS TEST WAS PERFORMED AT:[facility] [address]KZOPCOANTONY ROQUE MD HIV 1 Ab [Presence] in Serum, Plasma or Blood by Rapid immunoassay [facility] HIV 1 RNA [Presence] in Serum or Plasma by Probe and target amplification method [facility] Treponema pallidum Ab [Presence] in Serum by Agglutination Nonreactive [facility] Rapid Plasma Reagin (RPR) [facility] Reagin Ab [Titer] in Serum by RPR [facility] Hepatitis B virus surface Ag [Presence] in Serum or Plasma b y Immunoassay NON-REACTIVE [facility] THIS TEST WAS PERFORMED AT:[facility] [address] [address]EXKGNXANTONY ROQUE MD HBsAg Confirmation [facility] Rubella virus IgG Ab [Units/volume] in Serum or Plasma by Immunoassay 1.56 Index [facility] l Index Interpretation - ---- <0.90 Not consistent with immunity 0.90-0.99 Equivocal > or = 1.00 Consistent with immunityThe presence of rubella IgG antibody suggestsimmunization or past or current infection withrubella virus.THIS TEST WAS PERFORMED AT:[facility] [id number] ROQUE MD ID Date Data Source [id number] 08/03/2020 03:05:00 PM EDT [facility] [address] Address: [address] [facility] City: [facility] State: [place] Zip Code: [address] Patient [address] Address: [address] [address] [facility] City: [place] State: [place] Zip Code: [address]Ufghges Name Value Range Interpretation Code Description Data Dolores rce(s) Supporting Document(s) Thyrotropin [Units/volume] in Serum or Plasma by Detec tion limit <= 0.005 mIU/L 2.10 u[iU]/mL 0.35-5.50 N [facility] ID Date Data Source [id number] 08/05/2020 03:27:00 PM EDT [facility] [address] Address: [address] [facility] City: [place]: [place] Zip Code: [address] Patient [address] Address: [address] [facility] [place] Zip Code: [address]Qpljbin Name Value Range Interpretation Code Description Data Dolores rce(s) Supporting Document(s) Varicella zoster virus IgG Ab [Units/volume] in Serum by Immunoassay 250.70 index [facility] Index Interpretatio n --------- <135.00 Negative - [...] Antibody Immunity Screen, ACIF.THIS TEST WAS PERFORMED AT:[facility] [address]GSPEEB MERATI,MD ID Date Data Source [id number] 08/03/2020 03:21:00 PM EDT [facility] Name Value Range Interpretation Code Description Data Dolores rce(s) Supporting Document(s) Blood bank studies (set) Yes [facility] Blood Type [facility] Antibody Screen (PN) NEGATIVE Charli Phan [facility] ID Date Data Source [id number] 08/03/2020 01:13:00 PM EDT [facility] Patient Name: EBONY MINER : 1990 Sex: F Pt Unit #: [id number] Location:[facility] Provider: Visit Date/Time: 08/03/20 Primary Insurance: [facility] Secondary Insurance: Self Pay Intake Vital Signs [...] Delivery Method room air 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 Denies any concerns today. 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 managed at [facility]. Second : Stillborn with Down syndrome at 37 weeks gestation 6-7 years ago. [facility]. Third : Blighted ovum, D C [...] Code(s): N91.2 - Amenorrhea, unspecified SNOMED Code(s): 01219892 Category: Medical Plan: 1. Amenorrhea: UCG in office: Positive. 2. Serum hCG today. 3. For OB sonogram. Orders: Orders Type and Screen Today Z34. - Encounter for supervision of normal , unspecified, unspecified trimester BHCG Quantitative Today N91.2 - Amenorrhea, unspecified, Z34. - Encounter for supervision of normal , [...] [place] [address] New Pt Limited Comp Patient Type New History Expanded Problem Focused Exam Problem Focused Medical Decision Making Straight Forward Diagnoses Encounter to establish care with new doctor Z76.89 Amenorrhea N91.2 Time Spent (min) 15 <Electronically signed by Janis Norton MD> 08/03/20 1812 Name Value Range Interpretation Code Description Data Dolores rce(s) Supporting Document(s) ID Date Data Source TSH 04/23/2020 12:00:00 AM EST eCW1 ([facility]) Name Value Range Interpretation Code Description Data Dolores rce(s) Supporting Document(s) 2.350 0.358-3.740 THYROID STIMULATING HORM ONE eCW1 ([facility]) ID Date Data Source FREE T4 04/23/2020 12:00:00 AM EST eCW1 ([facility]) Name Value Range Interpretation Code Description Data Dolores rce(s) Supporting Document(s) 1.02 0.76-1.46 FREE T4 [facility] Procedure Social History Code Duration Value Status Description Data Source(s ) Smoking 01/04/2021 12:00:00 AM EST Former Smoker completed Former Smoker eCW1 ([facility]) Smoking 12/31/2020 12:00:00 AM EST Former Smoker completed Former Smoker eCW1 ([facility]) Smoking 12/31/2020 12:00:00 AM EST Former Smoker completed Former Smoker eCW1 ([facility]) Smoking 12/07/2020 12:00:00 AM EDT Former Smoker completed Former Smoker eCW1 ([facility]) 08/03/2020 01:23:05 PM EDT Never smoker completed Never [facility] 08/03/2020 01:23:05 PM EDT Never smoker completed Never [facility] 08/03/2020 01:23:05 PM EDT Never smoker completed Never [facility] 08/03/2020 01:23:05 PM EDT Never smoker completed Never [facility] Smoking 08/03/2020 01:23:00 PM EDT Never smoker completed Never [facility] Smoking 04/23/2020 12:00:00 AM EST Former Smoker completed Former Smoker eCW1 ([facility]) Smoking 04/23/2020 12:00:00 AM EST Former Smoker completed Former Smoker eCW1 ([facility]) Vital Signs ID Date Data Source UNK Name Value Range Interpretation Code Description Data Source(s) Body weight 290.2 [lb_av] 290.2 [lb_av] eCW1 ([facility]) Body weight 131.63 kg 131.63 kg eCW1 ([facility]) Body height 61 [in_i] 61 [in_i] eCW1 ([facility]) Body mass index (BMI) [Ratio] 54.83 kg/m2 54.83 kg/m2 eCW1 ([facility]) Heart rate 128 /min 128 /min eCW1 ([facility]) Respiratory rate 18 /min 18 /min eCW1 ([facility]) Body temperature 98.4 [degF] 98.4 [degF] eCW1 ( [facility]) Systolic blood pressure 126 mm[Hg] 126 mm[Hg] e CW1 ([facility]) Diastolic blood pressure 80 mm[Hg] 80 mm[Hg] eCW1 ([facility]) Body weight 286.2 [lb_av] 286.2 [lb_av] eCW1 ([facility]) Body weight 129.82 kg 129.82 kg eCW1 ([facility]) Body height 61 [in_i] 61 [in_i] eCW1 ([facility]) Body mass index (BMI) [Ratio] 54.077 kg/m2 54.0 77 kg/m2 eCW1 ([facility]) Systolic blood pressure 128 mm[Hg] 128 mm[Hg] e CW1 ([facility]) Diastolic blood pressure 90 mm[Hg] 90 mm[Hg] eCW1 ([facility]) Body weight 295 [lb_av] 295 [lb_av] eCW1 ([facility]) Body height [in_i] eCW1 ([facility]) Body mass index (BMI) [Ratio] 55.73 kg/m2 55.73 kg/m2 eCW1 ([facility]) Heart rate 100 /min 100 /min eCW1 ([facility]) Respiratory rate 18 /min 18 /min eCW1 ([facility]) Body temperature 96.9 [degF] 96.9 [degF] eCW1 ( [facility]) Systolic blood pressure 128 mm[Hg] 128 mm[Hg] e CW1 ([facility]) Diastolic blood pressure 88 mm[Hg] 88 mm[Hg] eCW1 ([facility])
[2021-01-05] MEDS: ENOXAPARIN 40MG/0.4ML SYRINGE (J1650 PER 10MG) SC SCH (09:00)
--- NOTE | 2021-01-05 11:23 | HPEPDOC ---
[facility] Medical History & Physical Date of Admission Jan 05, 2021 Date of Service: Jan 05, 2021 History and Physical CHIEF COMPLAINT: "Soar throat and cough" HISTORY OF PRESENT ILLNESS: 30-year-old, 29 weeks and 6 days female, with no significant past medical history who presented to the emergency room department with complaints of a sore throat, rhinorrhea, and cough. She tested positive for COVID-19. Her symptoms began on 12/27/2020. She denied shortness of breath, and chest pain. She lives with her and 3 daughters who go to school. She is unaware of any other exposures she may have had, and has not travelled recently. Presently denies, abdominal pain, n/v, problems with urination and bowel movements. Medicine team has been consulted by [facility] team for management of her COVID. PAST MEDICAL HISTORY: 1. Obesity PAST SURGICAL HISTORY: 1. Umbilical hernia repair 2. Tympanostomy 3. Tonsillectomy SOCIAL HISTORY: Former smoker. Denies recreational drug use, denies alcohol use. FAMILY HISTORY: Could not recall family history ALLERGIES: Please see below. REVIEW OF SYSTEMS: 10 point review of system was negative except for what is noted in the HPI HOME MEDICATIONS: Please see below. PHYSICAL EXAMINATION: VITAL SIGNS: Please see below General: Lying in bed, no acute distress Head/Neck/Throat: Trachea midline, mucous membranes moist Eyes: Sclera anicteric, no erythema or discharge appreciated bilaterally Thorax: Normal respiratory effort on room air, saturating at 94% on room air, lungs clear to auscultation bilaterally, no wheezes/rales/rhonchi Cardiovascular: Normal rate, regular rhythm, normal S1, S2; no S3, S4, rubs/gallops/murmurs Abdomen: Bowel sounds present, soft/nontender/nondistended Genitourinary: No CVA tenderness, no Latham in place Musculoskeletal: Moving all extremities, no edema Skin: Warm, dry Neurologic: AAOx3, speech fluent and goal-directed, no focal deficits, grossly intact LABORATORY DATA: See below. IMAGING: No imaging to review at this time MICROBIOLOGY: Please see below. ASSESSMENT/PLAN: #COVID-19 -Patient is saturating at 92-93% on room air; goal sp02 is 95% in preg. Spoke with infectious disease team and it was recommended pt be started on dexamethasone and remdesivir. -O2 protocol, and trend inflammatory markers for now. #Obesity -Complicates care of patient #DVT ppx -Enoxaparin Vital Signs Vital Signs Date Time Temp Pulse Resp B/P (MAP) Pulse Ox O2 Delivery O2 Flow Rate FiO2 01/05/21 07:10 97.1 98 20 103/ (34) Room Air 96 01/05/21 07:10 96 Laboratory Data Labs 24H Laboratory Tests 2 01/04/21 18:07: Nucleated Red Blood Cells % (auto) 0.0, Anion Gap 10, Glomerular Filtration Rate > 60.0, Uric Acid 6.5H, Calcium Level 8.4L, Total Bilirubin 0.6, Aspartate Amino Transf (AST/SGOT) 25, Alanine Aminotransferase (ALT/SGPT) 15, Alkaline Phosphatase 120H, Lactate Dehydrogenase 243, Total Protein 5.5L, Albumin 2.0L, Albumin/Globulin Ratio 0.6L 01/04/21 18:29: Urine Random Creatinine 219.0, Urine Random Total Protein 49.8H CBC/BMP Laboratory Tests 01/04/21 18:07 Home Medications Scheduled No.137/Iron/Folic Acd ( Vitamin Tablet) 1 Each Tablet, 1 TAB PO DAILY Scheduled PRN Acetaminophen (Tylenol Extra Strength) 500 Mg Powd.pack, 2 MG PO Q6HP PRN for MILD DISCOMFORT Guaifenesin (Guaifenesin) 100 Mg/5 Ml Liquid, 20 ML PO Q6HP PRN for COUGH Allergies Coded Allergies: Sulfa (Sulfonamide Antibiotics) (Verified Allergy, Intermediate, rash, 01/04/21) rash,hives Mosquito (Verified Allergy, Mild, INSECT BITES = RASH, 05/02/18) A-FIB/CHADSVASC A-FIB History Current/History of A-Fib/PAF?: No KEYSHA WASHINGTON M.D. Jan 05, 2021 11:02
[2021-01-05] MEDS: dexameTHASONE 20MG/5ML VIAL (J1100 PER 1MG) IV SCH (15:02)
[2021-01-05] MEDS: BENZONATATE 100MG CAPSULE PO SCH ×2 (15:02→20:24)
[2021-01-05] MEDS ORDERED: REMDESIVIR 200 MG in NS 250 ML IV ONE (16:00)
[2021-01-05] MEDS ORDERED: SODIUM CHLORIDE 0.9% INJ 10 ML SYR IV ONE (18:00)
[2021-01-06] VITALS (7 sets, daily range): BP systolic 112–122; BP diastolic 58–78
[2021-01-06] MEDS: guaiFENesin DM LIQ 10ML UD PO PRN ×2 (01:16→06:41)
[2021-01-06] MEDS: LR 1,000 ML IV SCH ×2 (01:21→09:09)
[2021-01-06 06:43] LABS: HEMATOCRIT 35.6 % (36.0-47.0); HEMOGLOBIN 11.5 g/dl (12.0-15.5); MEAN CORPUSCULAR HGB CONC 32.3 g/dl (32.0-36.5); MEAN CORPUSCULAR VOLUME 86.6 fl (80.0-96.0); PLATELET COUNT, AUTOMATED 186 10^3/uL (150-450); RED BLOOD COUNT 4.11 10^6/uL (4.00-5.40); WHITE BLOOD COUNT 5.7 10^3/uL (4.0-10.0)
[2021-01-06 07:05] LABS: ALBUMIN 1.7 GM/DL (3.2-5.2); ALT/SGPT 14 U/L (12-78); BILIRUBIN,DIRECT 0.3 MG/DL (0.0-0.2); BILIRUBIN,TOTAL 0.5 MG/DL (0.2-1.0); BLOOD UREA NITROGEN 7 MG/DL (7-18); C REACTIVE PROTEIN QUANTITATIV 3.28 MG/DL (0.00-0.30); CALCIUM LEVEL 8.5 MG/DL (8.5-10.1); CARBON DIOXIDE LEVEL 26 MEQ/L (21-32); CHLORIDE LEVEL 110 MEQ/L (98-107); CREATININE FOR GFR 0.53 MG/DL (0.55-1.30); GLOMERULAR FILTRATION RATE > 60.0 (>60); GLUCOSE, FASTING 136 MG/DL (70-100); MAGNESIUM LEVEL 1.8 MG/DL (1.8-2.4); PHOSPHORUS LEVEL 3.6 MG/DL (2.5-4.9); POTASSIUM SERUM 4.1 MEQ/L (3.5-5.1); SODIUM LEVEL 142 MEQ/L (136-145)
[2021-01-06] MEDS: dexameTHASONE 20MG/5ML VIAL (J1100 PER 1MG) IV SCH (09:08)
[2021-01-06] MEDS: BENZONATATE 100MG CAPSULE PO SCH ×3 (09:09→20:54)
[2021-01-06] MEDS: ENOXAPARIN 40MG/0.4ML SYRINGE (J1650 PER 10MG) SC SCH (09:09)
--- NOTE | 2021-01-06 11:29 | IPNPDOC ---
Text Note Date of Service The patient was seen on 01/06/21. NOTE Subjective: 31-year-old female (29 weeks and 7 days) admitted to [facility] with complaints of shortness of breath, and noted to be Covid positive. She was started on dexamethasone and remdesivir on 01/05. Today, she reports feeling short of breath when she coughs or ambulates to use the bathroom. Otherwise, she had no new complaints and no acute events overnight. Review of systems: 10 point review of system was negative except for what is noted in the HPI Physical exam: General: Lying in bed, no acute distress Head/Neck/Throat: Trachea midline, mucous membranes moist Eyes: Sclera anicteric, no erythema or discharge appreciated bilaterally Thorax: Normal respiratory effort on 3 L nasal cannula, saturating at 97 %, bibasilar crackles appreciated Cardiovascular: Normal rate, regular rhythm, normal S1, S2; no S3, S4, rubs/gallops/murmurs Abdomen: Bowel sounds present, soft/nontender/nondistended Genitourinary: No CVA tenderness, no Latham in place Musculoskeletal: Moving all extremities, no edema Skin: Warm, dry Neurologic: AAOx3, speech fluent and goal-directed, no focal deficits, grossly intact Labs: See below Imaging: Please see imaging section Assessment/plan: #COVID-19 -Patient is saturating at 97% on room air. Continue with dexamethasone and remdesivir -on 3 to -O2 protocol, and trend inflammatory markers for now. #Obesity -Complicates care of patient #DVT ppx -Enoxaparin VS,Fishbone, I+O VS, Fishbone, I+O Laboratory Tests 01/06/21 06:27 Vital Signs Date Time Temp Pulse Resp B/P (MAP) Pulse Ox O2 Delivery O2 Flow Rate FiO2 01/06/21 11:00 97 Venturi Mask 3.0 24 01/06/21 08:15 97.1 82 18 113/75 (88) I&O- Last 24 Hours up to 6 AM 01/06/21 06:00 Intake Total 2000 ml Balance 2000 ml KEYSHA WASHINGTON M.D. Jan 06, 2021 11:29
--- NOTE | 2021-01-06 13:36 | IPNPDOC ---
Text Note Date of Service The patient was seen on 01/06/21. NOTE S: 30 yo female at 30 1/7 weeks with symptomatic COVID+ status. Still gets some SOB when ambulating. Persistent cough is bothersome. O: AVSS NAD Lungs: CTA CVS: RRR Abd: NT, gravid FHT: Cat. I toco: rare A/P 30 yo female at 30 1/7 weeks with symptomatic COVID+ status. Continue Remdisevir, Dexamethasone per Medicine monitor every 4 hours Some improvement seen VS,Fishbone, I+O VS, Fishbone, I+O Laboratory Tests 01/06/21 06:27 Vital Signs Date Time Temp Pulse Resp B/P (MAP) Pulse Ox O2 Delivery O2 Flow Rate FiO2 01/06/21 13:16 84 96 Room Air 01/06/21 12:52 2.0 01/06/21 12:00 96.8 18 115/66 (82) 24 I&O- Last 24 Hours up to 6 AM 01/06/21 06:00 Intake Total 2000 ml Balance 2000 ml ARLETTE SAGASTUME MD Jan 06, 2021 13:36
[2021-01-06] MEDS: SODIUM CHLORIDE 0.9% INJ 10 ML SYR IV SCH (16:06)
[2021-01-06] MEDS: REMDESIVIR 100 MG in NS 250 ML IV SCH (16:06)
[2021-01-07] VITALS (7 sets, daily range): BP systolic 112–127; BP diastolic 59–85
[2021-01-07] MEDS: guaiFENesin DM LIQ 10ML UD PO PRN (08:21)
[2021-01-07] MEDS: dexameTHASONE 20MG/5ML VIAL (J1100 PER 1MG) IV SCH (08:49)
[2021-01-07] MEDS: ENOXAPARIN 40MG/0.4ML SYRINGE (J1650 PER 10MG) SC SCH (08:49)
[2021-01-07] MEDS: BENZONATATE 100MG CAPSULE PO SCH ×3 (08:50→21:42)
--- NOTE | 2021-01-07 10:45 | CR ---
CONSULTATION DATE: 01/06/2021 REASON FOR CONSULTATION: Asked to consult by Dr. Justin Leone for evaluation of COVID 19 pneumonia in a 29 week lady. HISTORY OF PRESENT ILLNESS: Chtira is a 30-year-old morbidly obese female and not COVID vaccinated, who was admitted to [facility] on January 05 with sore throat, rhinorrhea and cough. The patient's three children had runny noses the week prior to her being sick. She tested positive for COVID 19. Her symptoms had started around 12/27. She has mild shortness of breath with talking. No chest pain. Her three daughters and are "currently on quarantine". She denies any abdominal pain. She had some nausea when she was coughing, but no vomiting. No urinary symptoms. PAST MEDICAL HISTORY: Obesity. PAST SURGICAL HISTORY: Umbilical hernia repair, tympanostomy, tonsillectomy. SOCIAL HISTORY: Former smoker, , three kids. Denies alcohol use. None of the family is vaccinated. ALLERGIES: Mosquitos and SULFA she received as a kid. MEDICATIONS: Remdesivir 100 mg IV q 24 hours. She received a 200 mg IV loading dose yesterday. Tessalon 100 mg by mouth three times a day. Decadron 6 mg IV daily, Lovenox 40 mg subcutaneous daily, Tums 1000 mg by mouth q as needed. Robitussin DM as needed and Zofran as needed. LABORATORY DATA: White count 5.7, hemoglobin 11.5, hematocrit 35.6, platelets 186. Sodium 142, potassium 4.1, chloride 110, bicarbonate 26, BUN 7, creatinine 0.53, glucose 136, calcium 8.5, AST 21, ALT 14, alkaline phosphatase 119, CPK 20, C-reactive protein 3.28, total protein 5, albumin 1.7. SARS, COVID antigen was positive on 12/31 and group A strep was negative, antigen and culture. Chest x-ray: Patch intersitial and airspace opacity seen in both lungs, right greater than left. PHYSICAL EXAMINATION: On physical examination, she is a pleasant healthy looking female in no respiratory discomfort. Slightly short of breath when she speaks. Temperature is 97.1, pulse 88, respirations 18, blood pressure 118/58, O2 saturation 96% on 2 liters nasal cannula. Heart: Normal S1, S2. No murmurs, rubs or gallops. Lungs are clear. No wheezes, rales or rhonchi. Abdomen: Morbidly obese. Soft, nontender. Breasts very large. Extremities: No clubbing, cyanosis or edema. No calf tenderness. Oropharynx is clear. Good dentition. Neck is supple. No jugular venous distention (JVD). No bruits. No adenopathy. Neurologic examination: Alert and oriented times 3. Moves all extremities. IMPRESSION: This is a 30-year-old female, third trimester, who is admitted with COVID pneumonitis and mild hypoxia. The patient has improved with IV remdesivir and Decadron. Labs are stable. She has slightly elevated C-reactive protein, otherwise normal liver function test, kidney profile as well. PLAN: Continue with current management. Encouraged to have get vaccinated once he gets off quarantine and her children if they are above the age of 5.
[2021-01-07] MEDS: REMDESIVIR 100 MG in NS 250 ML IV SCH (15:47)
[2021-01-07] MEDS: SODIUM CHLORIDE 0.9% INJ 10 ML SYR IV SCH (16:52)
[2021-01-07] MEDS: CALCIUM CARBONATE 500 MG CHEW U/D PO PRN (17:44)
--- NOTE | 2021-01-07 17:51 | IPNPDOC ---
Text Note Date of Service The patient was seen on 01/07/21. NOTE Subjective: 31-year-old female (29 weeks and 7 days) admitted to labor and delivery [facility] with complaints of shortness of breath, and noted to be Covid positive. She was started on dexamethasone and remdesivir on 01/05. She continues to complain of feeling short of breath when she has coughing spells. Otherwise, had no new complaints and there were no acute events reported overnight. Review of systems: 10 point review of system was negative except for what is noted in the HPI Physical exam: General: Lying in bed, no acute distress Head/Neck/Throat: Trachea midline, mucous membranes moist Eyes: Sclera anicteric, no erythema or discharge appreciated bilaterally Thorax: Normal respiratory effort on 3 L nasal cannula, saturating at 97 %, bibasilar crackles appreciated Cardiovascular: Normal rate, regular rhythm, normal S1, S2; no S3, S4, rubs/gallops/murmurs Abdomen: Bowel sounds present, soft/nontender/nondistended Genitourinary: No CVA tenderness, no Latham in place Musculoskeletal: Moving all extremities, no edema Skin: Warm, dry Neurologic: AAOx3, speech fluent and goal-directed, no focal deficits, grossly intact Labs: See below Imaging: Please see imaging section Assessment/plan: #COVID-19 -Patient is saturating at 97% on room air. Continue with dexamethasone and remdesivir -on 4 -O2 protocol, and trend inflammatory markers for now. #Obesity -Complicates care of patient #DVT ppx -Enoxaparin VS,Fishbone, I+O VS, Fishbone, I+O Vital Signs Date Time Temp Pulse Resp B/P (MAP) Pulse Ox O2 Delivery O2 Flow Rate FiO2 01/07/21 12:19 97.0 83 20 119/77 (91) 98 Nasal Cannula 3.0 01/07/21 00:20 24 I&O- Last 24 Hours up to 6 AM 01/07/21 06:00 Intake Total 1645 ml Balance 1645 ml KEYSAH WASHINGTON M.D. Jan 07, 2021 17:51
[2021-01-08] VITALS (10 sets, daily range): BP systolic 101–137; BP diastolic 55–86
[2021-01-08] MEDS: guaiFENesin DM LIQ 10ML UD PO PRN (02:16)
[2021-01-08] MEDS ORDERED: ACETAMINOPHEN 500 MG TAB PO PRN (06:15)
[2021-01-08] MEDS: ONDANSETRON 4MG/2ML VIAL IV PRN (06:19)
[2021-01-08 07:43] LABS: HEMATOCRIT 34.3 % (36.0-47.0); HEMOGLOBIN 11.1 g/dl (12.0-15.5); MEAN CORPUSCULAR HEMOGLOBIN 27.9 pg (27.0-33.0); MEAN CORPUSCULAR HGB CONC 32.4 g/dl (32.0-36.5); MEAN CORPUSCULAR VOLUME 86.2 fl (80.0-96.0); PLATELET COUNT, AUTOMATED 305 10^3/uL (150-450); RED BLOOD COUNT 3.98 10^6/uL (4.00-5.40); WHITE BLOOD COUNT 10.9 10^3/uL (4.0-10.0)
[2021-01-08 08:07] LABS: C REACTIVE PROTEIN QUANTITATIV 0.74 MG/DL (0.00-0.30); MAGNESIUM LEVEL 1.8 MG/DL (1.8-2.4); PHOSPHORUS LEVEL 4.2 MG/DL (2.5-4.9)
[2021-01-08 08:08] LABS: ALBUMIN 1.6 GM/DL (3.2-5.2); ALT/SGPT 14 U/L (12-78); BILIRUBIN,TOTAL 0.2 MG/DL (0.2-1.0); BLOOD UREA NITROGEN 10 MG/DL (7-18); CALCIUM LEVEL 8.2 MG/DL (8.5-10.1); CARBON DIOXIDE LEVEL 27 MEQ/L (21-32); CHLORIDE LEVEL 108 MEQ/L (98-107); CREATININE FOR GFR 0.52 MG/DL (0.55-1.30); GLOMERULAR FILTRATION RATE > 60.0 (>60); GLUCOSE, FASTING 97 MG/DL (70-100); POTASSIUM SERUM 4.7 MEQ/L (3.5-5.1); SODIUM LEVEL 142 MEQ/L (136-145); TOTAL PROTEIN 4.8 GM/DL (6.4-8.2)
[2021-01-08] MEDS: dexameTHASONE 20MG/5ML VIAL (J1100 PER 1MG) IV SCH (09:15)
[2021-01-08] MEDS: BENZONATATE 100MG CAPSULE PO SCH ×3 (09:20→21:51)
[2021-01-08] MEDS: ENOXAPARIN 40MG/0.4ML SYRINGE (J1650 PER 10MG) SC SCH (10:09)
--- NOTE | 2021-01-08 11:35 | IPNPDOC ---
Text Note Date of Service The patient was seen on 01/08/21. NOTE Subjective: 31-year-old female (29 weeks and 7 days) admitted to labor and delivery [facility] with complaints of shortness of breath, and noted to be Covid positive. She was started on dexamethasone and remdesivir on 01/05. Today, she reports significant improvement in her symptoms including her cough and shortness of breath. She was off oxygen intermittently during the day, however was placed on nasal cannula when her oxygen saturations fell to 92% while she was asleep. She denied feeling short of breath while she was off oxygen or at night. She denied chest pain. Review of systems: 10 point review of system was negative except for what is noted in the HPI Physical exam: General: Lying in bed, no acute distress Head/Neck/Throat: Trachea midline, mucous membranes moist Eyes: Sclera anicteric, no erythema or discharge appreciated bilaterally Thorax: Normal respiratory effort on room air, saturating at 97 %, bibasilar crackles appreciated Cardiovascular: Normal rate, regular rhythm, normal S1, S2; no S3, S4, rubs/gallops/murmurs Abdomen: Bowel sounds present, soft/nontender/nondistended Genitourinary: No CVA tenderness, no Latham in place Musculoskeletal: Moving all extremities, no edema Skin: Warm, dry Neurologic: AAOx3, speech fluent and goal-directed, no focal deficits, grossly intact Labs: See below Imaging: Please see imaging section Assessment/plan: #COVID-19 -Patient is saturating at 97% on room air. We will continue with dexamethasone and remdesivir as she is intermittently requiring oxygen, however, if she is completely taken off oxygen then these can be discontinued. -O2 protocol, and trend inflammatory markers for now. #Obesity -Complicates care of patient #DVT ppx -Enoxaparin VS,Fishbone, I+O VS, Fishbone, I+O Laboratory Tests 01/08/21 07:27 Vital Signs Date Time Temp Pulse Resp B/P (MAP) Pulse Ox O2 Delivery O2 Flow Rate FiO2 01/08/21 10:59 76 96 Room Air 01/08/21 10:14 20 136/63 (87) 01/08/21 07:42 2.0 01/08/21 07:11 97.2 01/07/21 23:34 KEYSHA WASHINGTON M.D. Jan 08, 2021 11:35
[2021-01-08] MEDS: CALCIUM CARBONATE 500 MG CHEW U/D PO PRN (11:55)
[2021-01-08] MEDS: REMDESIVIR 100 MG in NS 250 ML IV SCH (16:27)
[2021-01-08] MEDS: SODIUM CHLORIDE 0.9% INJ 10 ML SYR IV SCH (17:54)
[2021-01-09] VITALS (8 sets, daily range): BP systolic 111–134; BP diastolic 60–78
[2021-01-09 06:39] LABS: HEMATOCRIT 34.9 % (36.0-47.0); HEMOGLOBIN 11.6 g/dl (12.0-15.5); MEAN CORPUSCULAR HEMOGLOBIN 28.5 pg (27.0-33.0); MEAN CORPUSCULAR HGB CONC 33.2 g/dl (32.0-36.5); MEAN CORPUSCULAR VOLUME 85.7 fl (80.0-96.0); PLATELET COUNT, AUTOMATED 335 10^3/uL (150-450); RED BLOOD COUNT 4.07 10^6/uL (4.00-5.40); WHITE BLOOD COUNT 13.9 10^3/uL (4.0-10.0)
[2021-01-09] MEDS: ENOXAPARIN 40MG/0.4ML SYRINGE (J1650 PER 10MG) SC SCH (09:15)
[2021-01-09] MEDS: dexameTHASONE 20MG/5ML VIAL (J1100 PER 1MG) IV SCH (09:17)
[2021-01-09] MEDS: BENZONATATE 100MG CAPSULE PO SCH ×3 (09:23→21:52)
--- NOTE | 2021-01-09 09:25 | IPNPDOC ---
Text Note Date of Service The patient was seen on 01/09/21. NOTE Subjective: 31-year-old female (29 weeks and 7 days) admitted to labor and delivery [facility] with complaints of shortness of breath, and noted to be Covid positive. She was started on dexamethasone and remdesivir on 01/05. She had no new complaints today. She denies feeling short of breath. Overnight, she required oxygen while asleep for short period of time otherwise has been off O2 for the majority of the time. Review of systems: 10 point review of system was negative except for what is noted in the HPI Physical exam: General: Lying in bed, no acute distress Head/Neck/Throat: Trachea midline, mucous membranes moist Eyes: Sclera anicteric, no erythema or discharge appreciated bilaterally Thorax: Normal respiratory effort on room air, saturating at 97 %, bibasilar crackles appreciated Cardiovascular: Normal rate, regular rhythm, normal S1, S2; no S3, S4, rubs/gallops/murmurs Abdomen: Bowel sounds present, soft/nontender/nondistended Genitourinary: No CVA tenderness, no Latham in place Musculoskeletal: Moving all extremities, no edema Skin: Warm, dry Neurologic: AAOx3, speech fluent and goal-directed, no focal deficits, grossly intact Labs: See below Imaging: Please see imaging section Assessment/plan: #COVID-19 -Patient is saturating at 97% on room air. She is required oxygen when she dipped down to 93 to 94% overnight briefly otherwise has been saturating adequately on room air. -We will complete remdesivir, and continue with dexamethasone for now and if she remains off oxygen she should receive a steroid taper upon discharge. -6-minute walk test to assess if she requires oxygen with ambulation -O2 protocol, and trend inflammatory markers for now. #Obesity -Complicates care of patient #DVT ppx -Enoxaparin VS,Fishbone, I+O VS, Fishbone, I+O Laboratory Tests 01/09/21 06:20 Vital Signs Date Time Temp Pulse Resp B/P (MAP) Pulse Ox O2 Delivery O2 Flow Rate FiO2 01/09/21 08:25 83 97 Room Air 01/09/21 07:58 96.6 20 111/65 (80) 01/09/21 05:48 2.0 01/07/21 23:34 I&O- Last 24 Hours up to 6 AM 01/09/21 06:00 Intake Total 5 ml Balance 2035 ml KEYSHA WASHINGTON M.D. Jan 09, 2021 09:25
[2021-01-09] MEDS: CALCIUM CARBONATE 500 MG CHEW U/D PO PRN ×3 (13:14→22:03)
[2021-01-09] MEDS: REMDESIVIR 100 MG in NS 250 ML IV SCH (15:08)
[2021-01-09] MEDS: SODIUM CHLORIDE 0.9% INJ 10 ML SYR IV SCH (16:23)
[2021-01-09] MEDS ORDERED: FAMOTIDINE 20 MG TAB PO ONE (21:45)
[2021-01-10 02:41] VITALS: BP 117/64
[2021-01-10 05:25] VITALS: BP 133/77
[2021-01-10 08:19] LABS: HEMATOCRIT 38.8 % (36.0-47.0); HEMOGLOBIN 12.8 g/dl (12.0-15.5); MEAN CORPUSCULAR HEMOGLOBIN 28.2 pg (27.0-33.0); MEAN CORPUSCULAR VOLUME 85.5 fl (80.0-96.0); PLATELET COUNT, AUTOMATED 382 10^3/uL (150-450); RED BLOOD COUNT 4.54 10^6/uL (4.00-5.40); WHITE BLOOD COUNT 15.8 10^3/uL (4.0-10.0)
[2021-01-10] MEDS: BENZONATATE 100MG CAPSULE PO SCH (08:33)
[2021-01-10] MEDS: ENOXAPARIN 40MG/0.4ML SYRINGE (J1650 PER 10MG) SC SCH (08:34)
[2021-01-10] MEDS: dexameTHASONE 20MG/5ML VIAL (J1100 PER 1MG) IV SCH (08:34)
[2021-01-10 08:55] LABS: ALT/SGPT 19 U/L (12-78); BILIRUBIN,TOTAL 0.2 MG/DL (0.2-1.0); BLOOD UREA NITROGEN 11 MG/DL (7-18); CARBON DIOXIDE LEVEL 24 MEQ/L (21-32); CHLORIDE LEVEL 107 MEQ/L (98-107); CREATININE FOR GFR 0.56 MG/DL (0.55-1.30); GLOMERULAR FILTRATION RATE > 60.0 (>60); GLUCOSE, FASTING 93 MG/DL (70-100); MAGNESIUM LEVEL 1.8 MG/DL (1.8-2.4); PHOSPHORUS LEVEL 4.4 MG/DL (2.5-4.9); POTASSIUM SERUM 4.2 MEQ/L (3.5-5.1); SODIUM LEVEL 139 MEQ/L (136-145); TOTAL PROTEIN 5.8 GM/DL (6.4-8.2)
[2021-01-10] MEDS ORDERED: IBUPROFEN 600MG TAB PO ONE (09:35)
[2021-01-10 10:20] VITALS: BP 121/72
[2021-01-10] MEDS ORDERED: PRED10TA2 PO (10:46)
[2021-01-10] MEDS ORDERED: GUAISYP5 PO (10:59)
--- NOTE | 2021-01-10 11:26 | DS.PDOC ---
Discharge Summary General Date of Admission Jan 05, 2021 at 08:44 Date of Discharge 01/10/22 Specialist/Consultants Involve: KEYSHA WASHINGTON M.D. Specialist/Consultants Involve Dr. Oneal Discharge Summary PROCEDURES PERFORMED DURING STAY: None ADMITTING DIAGNOSES: 1. Covid pneumonia. 2. Third trimester of 3. Morbid obesity DISCHARGE DIAGNOSES: 1. Stable in third trimester with Covid pneumonia at 30.5 weeks gestation COMPLICATIONS/CHIEF COMPLAINT: Covid pneumonia in HISTORY OF PRESENT ILLNESS: Chitra is 30-year-old at 30 weeks 5 days gestation who was admitted to Labor and delivery with Covid pneumonia. She was diagnosed with Covid on 12/31/20. She was having respiratory symptoms and her O2 sat was decreasing with movement into the low 90's requiring supplemental oxygen. She reports her symptoms have improved since being admitted. She is off oxygen and maintaining appropriate oxygen saturations. She denies contractions, leaking of fluid or vaginal bleeding. She reports active movement. DISCHARGE MEDICATIONS: Please see below. ALLERGIES: Please see below. PHYSICAL EXAMINATION ON DISCHARGE: VITAL SIGNS: Please see below. GENERAL: Awake and alert sitting up in chair. Does not appear to be in any distress. RESPIRATORY EXAMINATION: regular rate. Lungs with some slight wheezing in RRL. ABDOMINAL EXAMINATION: gravid and not tender with palpation. : Reactive NST with FHR 130, moderate variability, positive accelerations, no decelerations. No contractions. EXTREMITIES: generalized edema in bilateral legs and feet. SKIN: warm, dry, intact. LABORATORY DATA: Please see below. ACTIVITY: As tolerated. DIET: regular DISCHARGE INSTRUCTIONS: 1. Discharge to home. 2. Follow-up in office for OB appointment next week. 3. Call with increased SOB or difficulty breathing. Continue to use incentive spirometer at home. 4. Reviewed access to care, kick count, labor signs and danger signs to report. DISCHARGE CONDITION: Stable. Vital Signs/I&Os Vital Signs Date Time Temp Pulse Resp B/P (MAP) Pulse Ox O2 Delivery O2 Flow Rate FiO2 01/10/21 10:20 81 18 121/72 (88) 01/10/21 05:25 97.2 95 Room Air 01/10/21 02:41 2.0 01/07/21 23:34 I&O- Last 24 Hours up to 6 AM 01/10/21 06:00 Intake Total 1570 ml Balance 1570 ml Laboratory Data Labs 24H Laboratory Tests 2 01/10/21 08:06: Nucleated Red Blood Cells % (auto) 0.9H, Anion Gap 8, Glomerular Filtration Rate > 60.0, Calcium Level 9.0, Phosphorus Level 4.4, Magnesium Level 1.8, Total Bilirubin 0.2, Aspartate Amino Transf (AST/SGOT) 25, Alanine Aminotransferase ( ALT/SGPT) 19, Alkaline Phosphatase 105, C-Reactive Protein, Quantitative 0.30, Total Protein 5.8#L, Albumin 2.0#L, Albumin/Globulin Ratio 0.5L CBC/BMP Laboratory Tests 01/10/21 08:06 Discharge Medications Scheduled Prednisone (Prednisone) 10 Mg Tablet, 10 MG PO TAPER Take 4 tabs daily x 3 days, then 3 tabs daily x 3 days, then 2 tabs daily x 3 days, then 1 tab daily x 3 days and stop No.137/Iron/Folic Acd ( Vitamin Tablet) 1 Each Tablet, 1 TAB PO DAILY, (Reported) Scheduled PRN Guaifenesin/Dextromethorphan (Guaifenesin Dm Syrup) 120 Ml Syrup, 5 ML PO Q4HP PRN for COUGH Allergies Coded Allergies: Sulfa (Sulfonamide Antibiotics) (Verified Allergy, Intermediate, rash, 01/04/21) rash,hives Mosquito (Verified Allergy, Mild, INSECT BITES = RASH, 05/02/18) LEW JACOBO CNM Jan 10, 2021 11:26
--- NOTE | 2021-01-10 11:38 | IPNPDOC ---
Text Note Date of Service The patient was seen on 01/10/21. NOTE Subjective: 31-year-old female (29 weeks and 7 days) admitted to labor and delivery [facility] with complaints of shortness of breath, and noted to be Covid positive. She was started on dexamethasone and remdesivir on 01/05. Patient on no new complaints this morning. She denied chest pain, shortness of breath, abdominal pain, nausea, vomiting, problem with urination bowel movements. Review of systems: 10 point review of system was negative except for what is noted in the HPI Physical exam: General: Lying in bed, no acute distress Head/Neck/Throat: Trachea midline, mucous membranes moist Eyes: Sclera anicteric, no erythema or discharge appreciated bilaterally Thorax: Normal respiratory effort on room air, saturating at 97 %, bibasilar crackles appreciated Cardiovascular: Normal rate, regular rhythm, normal S1, S2; no S3, S4, rubs/gallops/murmurs Abdomen: Bowel sounds present, soft/nontender/nondistended Genitourinary: No CVA tenderness, no Latham in place Musculoskeletal: Moving all extremities, no edema Skin: Warm, dry Neurologic: AAOx3, speech fluent and goal-directed, no focal deficits, grossly intact Labs: See below Imaging: Please see imaging section Assessment/plan: #COVID-19 -Patient is saturating at 97% on room air. She is required oxygen when she dipped down to 93 to 94% overnight briefly otherwise has been saturating adequately on room air. -She has completed remdesivir. She will get a steroid taper upon discharge. -6-minute walk test completed and did not qualify for oxygen -There is suspicion for sleep apnea, and she was instructed to have sleep studies done upon discharge. This was recommended to her in the past as well as an outpatient. #Obesity -Complicates care of patient #DVT ppx -Enoxaparin Disposition: is cleared from medicine. She can be discharged home with a steroid taper. She will need a sleep study as there is suspected sleep apnea. VS,Fishbone, I+O VS, Fishbone, I+O Laboratory Tests 01/10/21 08:06 Vital Signs Date Time Temp Pulse Resp B/P (MAP) Pulse Ox O2 Delivery O2 Flow Rate FiO2 01/10/21 10:20 81 18 121/72 (88) 01/10/21 05:25 97.2 95 Room Air 01/10/21 02:41 2.0 01/07/21 23:34 I&O- Last 24 Hours up to 6 AM 01/10/21 06:00 Intake Total 1570 ml Balance 1570 ml KEYSHA WASHINGTON M.D. Jan 10, 2021 11:38
[2021-01-14] MEDS ORDERED: FERR325T3 PO (10:14)
== END 2021-01-10 12:40 | disposition home or self-care (01) | DRG 566 ==
LOC: M LDO 16:11 → M LDI 01-05 08:44
PROVIDERS: ADMIT Advanced Practice Midwife; ATTEND Obstetrics & Gynecology
PROC: XW033E5 Introduction of Remdesivir Anti-infective into Peripheral Vein, Percutaneous Approach, New Technology Group 5 (ICD-10-PCS; principal; 2021-01-05)
PROC: 3E0333Z Introduction of Anti-inflammatory into Peripheral Vein, Percutaneous Approach (ICD-10-PCS; 2021-01-05)
DX: O98.513 Other viral diseases complicating pregnancy, third trimester (principal); U07.1 COVID-19; O99.513 Diseases of the respiratory system complicating pregnancy, third trimester; J12.82 Pneumonia due to coronavirus disease 2019; Z3A.29 29 weeks gestation of pregnancy; O99.213 Obesity complicating pregnancy, third trimester; E66.01 Morbid (severe) obesity due to excess calories; Z68.43 Body mass index [BMI] 50.0-59.9, adult; O99.613 Diseases of the digestive system complicating pregnancy, third trimester; K21.9 Gastro-esophageal reflux disease without esophagitis; Z87.891 Personal history of nicotine dependence; O13.3 Gestational [pregnancy-induced] hypertension without significant proteinuria, third trimester; Z88.2 Allergy status to sulfonamides; Z79.899 Other long term (current) drug therapy; R09.02 Hypoxemia; O99.353 Diseases of the nervous system complicating pregnancy, third trimester; G47.30 Sleep apnea, unspecified

== ENCOUNTER → 2022-10-16 | Outpatient (CLI) | payer OTHER ==
[~2022-10-16] MED LIST changes: +FERR325T3 PO; +GUAISYP5 PO; +PRED10TA2 PO
== END ==
LOC: M WUC 10:51
PROVIDERS: ATTEND Student in an Organized Health Care Education/Training Program
DX: M25.572 Pain in left ankle and joints of left foot (principal); R22.42 Localized swelling, mass and lump, left lower limb

== ENCOUNTER → 2024-02-08 | Outpatient (REF) | payer OTHER ==
[2024-02-08 17:57] LABS: BASO # 0.1 10^3/uL (0.0-0.2); BASO % 0.5 % (0.0-1.0); EOS # 0.2 10^3/uL (0.0-0.5); EOS % 1.4 % (0.0-3.0); HEMATOCRIT 41.3 % (36.0-47.0); LYMPH # 2.7 10^3/uL (1.5-5.0); LYMPH % 25.5 % (24.0-44.0); MEAN CORPUSCULAR HGB CONC 31.5 g/dl (32.0-36.5); MEAN CORPUSCULAR VOLUME 85.7 fl (80.0-96.0); MONO # 0.7 10^3/uL (0.0-0.8); MONO % 6.2 % (2.0-8.0); NEUTROPHILS # 6.9 10^3/uL (1.5-8.5); PLATELET COUNT, AUTOMATED 382 10^3/uL (150-450); RED BLOOD COUNT 4.82 10^6/uL (4.00-5.40); WHITE BLOOD COUNT 10.5 10^3/uL (4.0-10.0)
[2024-02-08 17:59] LABS: ALBUMIN 3.5 G/DL (3.2-5.2); ALKALINE PHOSPHATASE 101 U/L (35-104); ALT/SGPT 19 U/L (7.0-40); AST/SGOT 11 U/L (<34); BILIRUBIN,TOTAL 0.5 MG/DL (0.3-1.2); BLOOD UREA NITROGEN 11 MG/DL (9-23); CALCIUM LEVEL 9.4 MG/DL (8.5-10.1); CARBON DIOXIDE LEVEL 27 MMOL/L (20-31); CHLORIDE LEVEL 105 MMOL/L (98-107); CHOLESTEROL LEVEL 187 MG/DL (<200); CREATININE FOR GFR 0.74 MG/DL (0.55-1.30); GLOMERULAR FILTRATION RATE > 60.0 (>60); GLUCOSE, FASTING 130 MG/DL (60-100); HDL CHOLESTEROL 35.9 MG/DL (>40); LDL CHOLESTEROL 104.1 MG/DL (<100); NON-HDL-C 151.1 MG/DL; POTASSIUM SERUM 4.2 MMOL/L (3.5-5.1); SODIUM LEVEL 141 MMOL/L (136-145); TOTAL PROTEIN 6.9 G/DL (5.7-8.2); TRIGLYCERIDES LEVEL 235 MG/DL (<150)
[2024-02-08 18:00] LABS: FREE T4 1.09 NG/DL (0.89-1.76)
[2024-02-08 18:01] LABS: THYROID STIMULATING HORMONE 2.162 uIU/ML (0.55-4.78)
== END ==
LOC: M LABDRWAD 17:05
DX: Z00.8 Encounter for other general examination (principal); R53.83 Other fatigue; R10.84 Generalized abdominal pain

== ENCOUNTER → 2024-11-26 | Outpatient (CLI) | payer OTHER ==
[2024-11-26 15:18] LABS: BASO # 0.0 10^3/uL (0.0-0.2); BASO % 0.5 % (0.0-1.0); EOS # 0.1 10^3/uL (0.0-0.5); EOS % 1.6 % (0.0-3.0); LYMPH # 2.5 10^3/uL (1.5-5.0); LYMPH % 28.1 % (24.0-44.0); MONO # 0.6 10^3/uL (0.0-0.8); MONO % 7.0 % (2.0-8.0); NEUTROPHILS # 5.5 10^3/uL (1.5-8.5); NEUTROPHILS % 62.5 % (36.0-66.0); PLATELET COUNT, AUTOMATED 379 10^3/uL (150-450)
[2024-11-26 15:20] LABS: ALT/SGPT 22 U/L (7.0-40); AST/SGOT 18 U/L (<34); CALCIUM LEVEL 9.0 MG/DL (8.5-10.1); CARBON DIOXIDE LEVEL 28 MMOL/L (20-31); CHLORIDE LEVEL 105 MMOL/L (98-107); CHOLESTEROL LEVEL 193 MG/DL (<200); CHOLESTEROL RISK RATIO 4.40 (<5); CREATININE FOR GFR 0.71 MG/DL (0.55-1.30); GLOMERULAR FILTRATION RATE > 90.0 (>60); LDL CHOLESTEROL 121.0 MG/DL (<100); NON-HDL-C 149.2 MG/DL; POTASSIUM SERUM 4.6 MMOL/L (3.5-5.1); SODIUM LEVEL 140 MMOL/L (136-145); TRIGLYCERIDES LEVEL 141 MG/DL (<150)
[2024-11-26 15:23] LABS: FREE T4 1.15 NG/DL (0.89-1.76)
[2024-11-26 15:25] LABS: TOTAL 25(OH) VITAMIN D 24.2 NG/ML (20.0-100.0)
[2024-11-26 16:12] LABS: ESTIMATED AVERAGE GLUCOSE 114.0 MG/DL (60-110)
== END ==
LOC: M LABDRWAD 10:07
DX: E78.1 Pure hyperglyceridemia (principal); E66.9 Obesity, unspecified; R10.84 Generalized abdominal pain; E78.5 Hyperlipidemia, unspecified